=== PATIENT | male | born 1950 | race Caucasian/White ===

== ENCOUNTER → 2016-10-06 | Outpatient (CLI) | payer MEDICARE ==
[2016-10-06 10:31] LABS: Non-African American GFR(MDRD) >60 (>60 ml/min/1.73 sqM)
[2016-10-06 10:33] LABS: Blood Urea Nitrogen 16 mg/dL (9-20)
--- NOTE | 2016-10-06 11:58 | CT ---
EXAMINATION TYPE: CT angio abd aorta wo/w con DATE OF EXAM: 10/06/2016 11:17 AM COMPARISON: 05/01/2016 HISTORY: 66-year-old male AAA follow up post stent. TECHNIQUE: Contiguous axial scanning of the abdomen and pelvis performed without and with IV Contrast , patient injected with 100 ml mL of Omnipaque 350. Delayed images were also obtained. Coronal/sagitt al MIP reconstructions performed. 3-D reconstructions generated on a dedicated independent workstatio n. CT DLP: 716.8 mGycm Automated exposure control for dose reduction was used. FINDINGS: The heart is normal size without pericardial effusion. Some emphysematous changes in the lower lungs. Small hiatal hernia. Tortuous descending thoracic aorta. The distal descending thoracic aorta measures 2.7 cm, ectatic. The upper abdominal aorta at the level of the celiac axis measures 2.7 cm, ectatic, essentially stabl e. There is an aortobiiliac endovascular stent graft which begins just above the level of the renal uyen ry takeoff, just below the SMA takeoff. The graft remains patent. The 10 cm long segment of infrarena l abdominal aortic aneurysm is redemonstrated and measures up to 5.8 cm wide on coronal series and up to 5.7 cm AP on sagittal series. This is in comparison to 5.9 x 5.6 cm on 05/01/2016, prestenting, al so measured on coronal and sagittal series, respectively. No endoleak is identified on arterial phase of imaging. The stented common iliac arteries measure up to 1.9 cm on the right and 1.6 cm on the left and are pa tent. There is redemonstrated fusiform dilatation of the celiac axis just prior to the trifurcation at 1.6 x 1.0 cm, not significantly changed from prior. Left hepatic lobe hypodense lesion measuring 1 cm is stable. Cholecystectomy clips are present. Bilateral left greater than right adrenal gland fullness as seen previously with density of less than 10 Hounsfield units could represent adrenal hyperplasia. Small periumbilical hernia. No dilated small bowel, free fluid, or free air. Small anterior splenule. Pancreas appears within normal limits. Redemonstrated 6 mm nonobstructive calculus lower pole left [place]. There is left colonic diverticulosis without pericolonic inflammatory change. Bladder is urine distended. No abnormal fluid collection in the pelvis or pelvic lymphadenopathy. Pro state gland mildly enlarged at 4.9 cm wide. Bones: Mild degenerative changes of the hips and mild at the SI joints as well. There is degenerated dextroconvex scoliosis of the lumbar spine. No osseous destructive process seen. IMPRESSION: 1. INTERVAL AORTOBIILIAC ENDOVASCULAR STENT GRAFT REPAIR OF THE PATIENT'S 10 CM LONG INFRARENAL AAA W ITH STENT EXTENDING FROM JUST ABOVE THE RENAL ARTERY TAKEOFF. 2. THE [place] SAC MEASURES 5.8 X 5.7 CM VERSUS 5.9 X 5.6 CM PRIOR TO STENTING, NOT SIGNIFICANTLY NIETO GED. NO CT EVIDENCE FOR ENDOLEAK. 3. MILDLY ANEURYSMAL RIGHT GREATER THAN LEFT STENTED COMMON ILIAC ARTERIES AT 1.9 AND 1.6 CM, RESPECT IVELY. 4. 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 5. LEFT HEMICOLONIC DIVERTICULOSIS AND 6 MM NONOBSTRUCTIVE LEFT RENAL CALCULUS. POSSIBLE ADRENAL HYPE RPLASIA.
== END | disposition home or self-care (01) ==
LOC: RADCTMAIN 09:51
PROVIDERS: ATTEND Thoracic Surgery (Cardiothoracic Vascular Surgery)
DX: I72.3 Aneurysm of iliac artery (principal); I72.2 Aneurysm of renal artery; I72.8 Aneurysm of other specified arteries; K57.30 Diverticulosis of large intestine without perforation or abscess without bleeding; Z95.828 Presence of other vascular implants and grafts
CPT/HCPCS: 82565; 84520; 75635; 36415; Q9967

== ENCOUNTER → 2017-05-12 | Outpatient (CLI) | payer MEDICARE ==
[2017-05-12 13:56] LABS: Blood Urea Nitrogen 14 mg/dL (9-20); Non-African American GFR(MDRD) >60 (>60 ml/min/1.73 sqM)
--- NOTE | 2017-05-12 15:31 | CT ---
EXAMINATION TYPE: CT angio abd aorta wo/w con DATE OF EXAM: 05/12/2017 COMPARISON: 10/06/2016 and 05/01/2016 HISTORY: 66-year-old male follow up to AAA TECHNIQUE: Contiguous axial scanning of the abdomen and pelvis performed without and with IV Contrast , patient injected with 100 mL of Omnipaque 350. Coronal/sagittal MIP reconstructions performed. 3-D reconstructions generated on a dedicated independent workstation. CT DLP: 2361 mGycm Automated exposure control for dose reduction was used. FINDINGS: The heart is normal size with trace anterior pericardial fluid. Lung bases clear without pleural effu siva. Small hiatal hernia. 1 cm hypodense left hepatic lobe lesion suggestive of a cyst. Cholecystectomy clips are present. No b iliary ductal dilatation. Portal venous system is patent. Low-density thickening of the bilateral adrenal glands, left greater than right unchanged from prior. Right kidney within normal limits. 6 mm nonobstructive calculus is again seen in the lower pole of t he left kidney. Spleen with anterior splenule within normal limits. Pancreas shows no gross abnormali ty. No dilated small bowel, free fluid, or free air. No mesenteric or retroperitoneal lymphadenopathy see n. Mild scattered stool. Left colonic diverticulosis without pericolonic inflammatory change. Bladder is urine distended with a couple bladder diverticulum measuring up to 2.0 cm on either side. Prostate gland mildly enlarged at 4.5 cm wide. No abnormal fluid collection in the pelvis or pelvic l ymphadenopathy. - Redemonstrated fusiform aneurysm of the celiac axis prior to the trifurcation measuring 1.6 x 1.0 c m. - Upper abdominal aorta remains ectatic at 2.7 cm. - SMA origin is patent. - Redemonstrated aortobiiliac endovascular stent graft with stent extending from just above the renal artery takeoff. - The graft remains patent and the [place] sac measures 5.1 x 4.3 cm versus 5.9 x 5.6 cm on 09/28/2016. - No evidence for endoleak on the arterial phase or delayed images. - The stented right and left common iliac arteries remain ectatic at 1.9 and 1.6 cm. Bones: Mild degenerative changes at the hips. Degenerated dextroconvex curvature of the lumbar spine. IMPRESSION: 1. AORTOBIILIAC STENT GRAFT REDEMONSTRATED. THE [place] SAC HAS DECREASED IN SIZE NOW MEASURING 5.1 X 4.3 CM VERSUS 5.9 X 5.6 CM ON 09/28/2016. NO EVIDENCE FOR ENDOLEAK. 2. THE STENTED RIGHT AND LEFT COMMON ILIAC ARTERIES REMAIN ECTATIC AT 1.9 AND 1.6 CM, RESPECTIVELY. 3. REDEMONSTRATED FUSIFORM ANEURYSM OF THE CELIAC AXIS PRIOR TO THE TRIFURCATION AT 1.6 X 1.0 CM. 4. LEFT HEMICOLONIC DIVERTICULOSIS, 6 MM NONOBSTRUCTIVE LEFT RENAL CALCULUS, AND SUSPECTED ADRENAL HY PERPLASIA.
== END | disposition home or self-care (01) ==
LOC: RADCTMAIN 13:00
PROVIDERS: ATTEND Thoracic Surgery (Cardiothoracic Vascular Surgery)
DX: K57.30 Diverticulosis of large intestine without perforation or abscess without bleeding (principal); N20.0 Calculus of kidney; I71.4 Abdominal aortic aneurysm, without rupture; I77.89 Other specified disorders of arteries and arterioles; Z95.828 Presence of other vascular implants and grafts
CPT/HCPCS: 82565; 84520; 75635; 36415; Q9967

== ENCOUNTER 2018-07-03 09:42 | Emergency (ER) | payer MEDICARE ==
[2018-07-03 09:49] VITALS: TEMP 98.1
[2018-07-03] MEDS ORDERED: HYDROcodone/APAP 5-325MG 1 EACH TAB PO STA (10:21)
--- NOTE | 2018-07-03 10:32 | ED ---
General Adult HPI - General Chief complaint: Extremity Problem,Nontraumatic Stated complaint: rt shoulder pain Source: patient, RN notes reviewed, old records reviewed Mode of arrival: ambulatory Limitations: no limitations - History of Present Illness Initial comments: 67-year-old male patient with past medical history of hypertension presents in ED with 3 days of right shoulder pain and 4 days of cervical spinal pain. Patient has a long history of right shoulder pain, had a total replacement of his right shoulder and [address] Mann. Patient additionally has a long history of cervical and lumbar spinal pain, follows up with Dr. Stringer and is scheduled to see him on . Patient denies any recent falls, trauma, injury. Patient states that his cervical spine bothersome approximately 3-4 times per year, is well-controlled with ibuprofen. Patient's primary complaint is his 3 days of right shoulder pain. Patient had a total replacement 2005, is concerned that it could be derangement of the prosthetic. Patient denies any falls, recent trauma, heavy lifting. Patient does not have any other complaints. Patient denies chest pain, shortness of breath, heart palpitations , fever or chills, abdominal pain, nausea vomiting diarrhea. Pt denies new numbness, paresthesias in any extremities. Systemic: Pt denies fatigue, myalgia, fever/chills, rash. Pt denies weakness, night sweats, weight loss. Neuro: Pt denies headache, visual disturbances, syncope or pre-syncope. HEENT: Pt denies ocular discharge or irritation, otalgia, rhinorrhea, pharyngitis or notable lymphadenopathy. Cardiopulmonary: Pt denies chest pain, SOB, heart palpitations, dyspnea on exertion. Abdominal/GI: Pt denies abdominal pain, n/v/d. : Pt denies dysuria, burning w/ urination, frequency/urgency. Denies new onset urinary or bowel incontinence. MSK: Pt denies myalgia, loss of strength or function in extremities. - Related Data Home Medications Medication Instructions Recorded Confirmed Lisinopril 10 mg PO HS 03/24/15 07/03/18 Albuterol Inhaler [Ventolin Hfa 2 puff INHALATION RT-Q6H PRN 07/03/18 07/03/18 Inhaler] Aspirin EC [Ecotrin Low Dose] 81 mg PO HS 07/03/18 07/03/18 Glucosamine/Chondr [place] A Sod [Osteo 1 tab PO HS 07/03/18 07/03/18 Bi-Flex Caplet] Ibuprofen [Motrin Ib] 800 mg PO TID PRN 07/03/18 07/03/18 Multivit-Min/FA/Lycopen/Lutein 1 tab PO HS 07/03/18 07/03/18 [Centrum Silver Tablet] [place]-3 Fatty Acids/Fish Oil [Fish 1 cap PO HS 07/03/18 07/03/18 Oil 1,000 mg Softgel] Ubidecarenone [Co Q-10] 100 mg PO HS 07/03/18 07/03/18 Allergies Allergy/AdvReac Type Severity Reaction Status Date / Time Penicillins AdvReac Rapid Verified 07/03/18 10:13 Heart Rate Review of Systems ROS Statement: Those systems with pertinent positive or pertinent negative responses have been documented in the HPI. ROS Other: All systems not noted in ROS Statement are negative. Past Medical History Past Medical History: Hyperlipidemia, Hypertension Additional Past Medical History / Comment(s): gastric ulcers History of Any Multi-Drug Resistant Organisms: None Reported Past Surgical History: Cholecystectomy, Hernia Repair, Joint Replacement Past Psychological History: No Psychological Hx Reported Smoking Status: Current every day smoker Past Alcohol Use History: None Reported Past Drug Use History: None Reported General Exam - General Exam Comments Initial Comments: Constitutional: NAD, AOX3, Pt has pleasant affect. HEENT: NC/AT, trachea midline, neck supple, no lymphadenopathy. Posterior pharynx non erythematous, without exudates. External ears appear normal, without discharge. Mucous membranes moist. Eyes PERRLA, EOM intact. There is no scleral icterus. No pallor noted. Cardiopulmonary: RRR, no murmurs, rubs or gallops, no JVD noted. Lungs CTAB in anterior and posterior robert. No peripheral edema. Abdominal exam: Abdomen soft and non-distended. Abdomen non-tender to palpation in all 4 quadrants. Bowel sounds active in LLQ. No hepatosplenomegaly. Neuro: CN II-XII intact. MSK: Cervical spine nontender to palpation, no nuchal rigidity, full active range of motion. Right shoulder nontender to palpation, no erythema, drainage, painful arc in right side positive. Empty can test on right side positive. Radial pulse 2 bilaterally. Capillary refill less than 2 seconds bilaterally. Sensation intact bilaterally of upper extremities. Patient ambulatory, he'll toe walking intact. Psoas strength 5 out of 5, quadriceps strength 5 out of 5. Full active range of motion in all extremities. Limitations: no limitations Course Vital Signs 07/03/18 07/03/18 09:46 11:43 Temperature 98.1 F Pulse Rate 92 83 Respiratory 16 18 Rate Blood Pressure 190/76 149/101 O2 Sat by Pulse 98 96 Oximetry Medical Decision Making - Medical Decision Making 67-year-old male patient presents in ED with right shoulder pain. She has a history of total right shoulder [place] [address] Mann. Patient has a separate complaint of cervical neck pain. Patient has a long history of cervical neck pain, had MRI approximately one year ago, follows up with Dr. Stringer for neck and low back pain. Patient states that he is primarily presenting for symptom control, and to assure that his prosthetic is not damaged. EKG patient was not suspicious for acute ischemia. Physical exam revealed neurovascularly intact upper extremity. Normal biceps, triceps strength. Right shoulder is nontender to palpation, nonerythematous, not warm. Cervical spine was nontender to palpation. Full active range of motion of cervical spine. Patient had a normal neuro exam. Patient is ambulatory. Patient does not have any new weakness or paresthesias in extremities. Plain films are taken of patient's cervical spine and shoulder. The plain film of patient's cervical spine displayed no evidence of acute fracture, grade 1 anterolisthesis at C3 and C4. Severe degenerative disc space narrowing gratis at C5-C6 and C6-C7. Findings explained patient in depth. Shoulder film displayed a intact right shoulder prosthesis. No acute fracture dislocation. Findings were explained to patient in depth. Patient was mildly hypertensive upon presentation to the ED secondary to pain. Patient vital signs stable after by mouth analgesic administration. Patient to discharge and follow-up with Dr. Mann and Dr. Stringer in 1-2 days. Pt to f/u with PCP in 1-2 days. Patient prescribed Tylenol 3 starter pack for at home analgesic control until follow-up. Patient to return to ED if any new signs or symptoms develop including chest pain, shortness of breath, weakness in right arm, weakness in any other extremities, change in color right arm, swelling, or other new symptoms. Case discussed with Dr. Song. Pt is driving home. - EKG Data -: EKG Interpreted by Me EKG Comments: Ventricular rate 86, MA interval 170, QRS 68, QTC/QTC 336/42, normal sinus rhythm, no concerns for acute ischemia. Disposition Clinical Impression: Shoulder pain, right Disposition: HOME SELF-CARE Condition: Good Instructions: Shoulder Pain (ED) Additional Instructions: Patient to adhere to previously discussed treatment plan and will take medication(s) as directed. Patient to follow up with PCP in 1-2 days. Patient to return to ED if symptoms do not improve. Is patient prescribed a controlled substance at d/c from ED?: No Referrals: Jennifer Mendoza DO [Primary Care Provider] - 1-2 days Armani Mann MD [REFERRING] - 1-2 days Arjun Stringer MD [STAFF PHYSICIAN] - 1-2 days Time of Disposition: 12:16
--- NOTE | 2018-07-03 11:33 | XR ---
EXAMINATION TYPE: XR shoulder complete RT DATE OF EXAM: 07/03/2018 CLINICAL HISTORY: pain TECHNIQUE: Three views of the right shoulder are obtained. COMPARISON: None FINDINGS: There is no acute fracture/dislocation evident. Right shoulder prosthesis is intact. Subch ondral cyst formation glenoid. The visualized ribs are intact and unremarkable. IMPRESSION: 1. There is no acute fracture or dislocation. ICD 10 NO FRACTURE, INITIAL EVALUATION
--- NOTE | 2018-07-03 11:35 | XR ---
EXAMINATION TYPE: XR cervical spine comp DATE OF EXAM: 07/03/2018 CLINICAL HISTORY: pain COMPARISON: NONE TECHNIQUE: Frontal, lateral, oblique, swimmers, and open mouth view of the cervical spine are obtaine d. FINDINGS: No evidence for acute fracture. Grade 1 anterolisthesis C3 on C4 measuring 4 mm. Severe deg enerative disc space narrowing greatest at C5-6 and C6-7. Ventral and dorsal spondylosis with bilater al foraminal encroachment. IMPRESSION: No acute fracture or dislocation is seen in the cervical spine.ICD 10 NO FRACTURE, INITI AL EVALUATION
[2018-07-03 11:46] VITALS: BP 149/101; PULSE 83; RESP 18
[2018-07-03] MEDS ORDERED: ACET/COD 300 MG/30 MG STARTER PACK 6 TAB BTL PO STA (12:16)
== END 2018-07-03 13:01 | disposition home or self-care (01) ==
LOC: EC 09:42
DX: M43.12 Spondylolisthesis, cervical region (principal); M48.02 Spinal stenosis, cervical region; E78.5 Hyperlipidemia, unspecified; I10 Essential (primary) hypertension; F17.200 Nicotine dependence, unspecified, uncomplicated; Z79.82 Long term (current) use of aspirin; Z79.899 Other long term (current) drug therapy; Z88.0 Allergy status to penicillin; Z96.611 Presence of right artificial shoulder joint
CPT/HCPCS: 72050; 93005; 99284

== ENCOUNTER → 2018-07-21 | Outpatient (CLI) | payer MEDICARE ==
--- NOTE | 2018-07-21 12:06 | MR ---
EXAMINATION TYPE: MR lumbar spine wo con DATE OF EXAM: 07/21/2018 COMPARISON: CT May 12, 2017 HISTORY: Spondylosis without myelopathy, pain TECHNIQUE: Multiplanar, multisequence imaging of the lumbar spine is performed without IV contrast. FINDINGS: There is dextroconvex scoliosis redemonstrated. There is loss of normal lumbar lordosis on sagittal images. There is grade 1 retrolisthesis of L2 on L3. Sagittal images of the lumbar spine brandt w vertebral body heights to appear satisfactory. There is multilevel disc desiccation and fairly adva nced disc space narrowing with relative sparing of L5-S1 level. Multilevel posterior spur disc comple xes are effacing anterior thecal sac. The conus medullaris is somewhat high in position ending super ior T12 level. There is heterogeneous endplate changes with moderate anterior spurring most prominent left L3-L4 and L4-L5 levels. Axial images at the T12-L1 level shows mild broad disc bulge with right paracentral/foraminal disc pr otrusion component effacing anterolateral thecal sac on axial image 28. Bilateral neural foramina are patent. Axial images at the L1-L2 level show mild facet degenerative changes bilaterally. There is broad-base d right lateral disc protrusion. There is moderate to severe right-sided inferior neural foraminal na rrowing. Left-sided neural foramen is patent. There is effacement of the anterior thecal sac. Axial images at the L2-L3 level show moderate facet degenerative changes and ligament flavum hypertro phy, left greater than right with spondylolisthesis and broad-based posterior spur disc complex. Ther e is effacement of the anterior thecal sac. There is advanced left-sided neural foraminal narrowing s agittal image 6 and axial image 18. There is moderate right-sided inferior neural foraminal narrowing . Encroachment left L2 nerve is felt present. Axial images at the L3-L4 level show mild/moderate facet degenerative changes and ligament flavum hyp ertrophy. There is moderate broad disc bulge with central disc protrusion component effacing anterior thecal sac. There is mild to moderate left greater than right bilateral neural foraminal narrowing. Axial images at the L4-L5 level show moderate facet degenerative changes and ligamentum flavum hypert rophy. There is moderate broad disc bulge with right paracentral disc protrusion component. There is effacement of the anterior thecal sac. There is severe right and moderate left-sided neural foraminal narrowing. Encroachment on right L4 nerve is suspected sagittal image 15 and axial image 7. Axial images at L5-S1 level show mild/moderate facet degenerative changes bilaterally. There is centr al disc protrusion minimally effacing anterior thecal sac on axial image 3. Bilateral neural foramina are patent. There is aneurysmal change to the infrarenal [place] abdominal aorta with metallic aortobiiliac stent graft seen better on recent CT noted. IMPRESSION: Dextroconvex scoliosis and loss of normal lumbar lordosis with multilevel degenerative ch anges in lumbar spine as detailed above.
== END | disposition home or self-care (01) ==
LOC: RADMRIMAIN 10:10
PROVIDERS: ATTEND Physical Medicine & Rehabilitation
DX: M41.86 Other forms of scoliosis, lumbar region (principal); M47.817 Spondylosis without myelopathy or radiculopathy, lumbosacral region; I10 Essential (primary) hypertension; K21.9 Gastro-esophageal reflux disease without esophagitis; F17.210 Nicotine dependence, cigarettes, uncomplicated; Z86.79 Personal history of other diseases of the circulatory system
CPT/HCPCS: 72148

== ENCOUNTER 2018-10-03 09:42 | Day surgery (SDC) | payer MEDICARE ==
[2018-09-29 12:17] VITALS: BMI 23.6
[~2018-10-03 09:42] MED LIST: LACTATED RINGERS 1,000 ML IV SCH; LIDOCAINE 1% 20 ML VIAL (10MG/ML) FOR IV START INTRADERMA PRN
[2018-10-03 10:05] VITALS: RESP 16; TEMP 97
[2018-10-03] MEDS ORDERED: PROPOFOL 10 MG/ML 20 ML VIAL IV ONE (10:47)
[2018-10-03 11:50] VITALS: BP 126/84; PULSE 82
--- NOTE | 2018-10-03 13:20 | P.PCN ---
Date of Procedure: 10/03/18 Procedure(s) Performed: Procedure: Colonoscopy and polypectomy and biopsy. Preoperative diagnosis: Rectal bleeding and history of polyps. Postoperative diagnosis: 1. Two polyps snared but no large polyps or cancer. 2. Diverticulosis with no evidence of diverticulitis or strictures. 3. Segmental colitis involving a segment in the rectum and in the sigmoid but no spontaneous bleeding. 4. Biopsies obtained from the sigmoid and rectum. Preparation: HalfLytely prep. Sedation: Was provided by anesthesia. Brief clinical history: The patient is a 68-year-old male who is scheduled for this evaluation because of history of polyps and rectal bleeding. The patient had bleeding for 10 days prior to his office visit around 2 weeks ago. He thinks that the bleeding may have improved since but still sees blood on the toilet tissue. No diarrhea or extraintestinal manifestations of inflammatory bowel disease. Procedure: With the patient on his left lateral decubitus position and after informed consent and adequate sedation, the perianal area was inspected and it did not show any fissures or fistulas. There were no masses felt on digital rectal examination. The Olympus CFH 190L video colonoscope was then inserted in the rectum in the usual fashion and advanced to the cecum. There there were multiple diverticular orifices noted mostly on the left side with occasional orifice around the hepatic flexure and on the right side, but I did not see any evidence of diverticulitis. There was 2 segments of colitis: one just inside the rectum and one in the distal sigmoid in the vicinity of diverticular orifices with findings of edema, erythema and friability but no spontaneous bleeding. There were no ulcers. There were multiple diverticular orifices noted mostly on the left side with few on the right side and around the hepatic flexure. 2 polyps were noted around the splenic flexure and in the sigmoid which were snared and retrieved by suction but there were no large polyps or cancer. I retroflexed the endoscope in the rectum before the endoscope was withdrawn. There was no spontaneous bleeding noted on this examination. I obtained biopsies from the rectum and from the sigmoid. The patient tolerated the procedure well. Plan: The patient was reassured. Will await biopsy results and make further recommendations. I will suggest repeat colonoscopy in 5 years. For his bleeding management, I will make recommendations based on his course and biopsy results. I will keep you updated on his progress.
== END 2018-10-03 12:31 | disposition home or self-care (01) ==
LOC: ORWHC2ENDO 09:42
DX: K62.5 Hemorrhage of anus and rectum (principal); K50.10 Crohn's disease of large intestine without complications; D12.5 Benign neoplasm of sigmoid colon; K63.5 Polyp of colon; K57.30 Diverticulosis of large intestine without perforation or abscess without bleeding; Z86.010 Personal history of colon polyps; Z80.0 Family history of malignant neoplasm of digestive organs; J45.909 Unspecified asthma, uncomplicated; K21.9 Gastro-esophageal reflux disease without esophagitis; E78.5 Hyperlipidemia, unspecified; I10 Essential (primary) hypertension; Z87.19 Personal history of other diseases of the digestive system; Z79.1 Long term (current) use of non-steroidal anti-inflammatories (NSAID); Z79.82 Long term (current) use of aspirin; Z79.899 Other long term (current) drug therapy; Z88.0 Allergy status to penicillin
CPT/HCPCS: 88305; 45385; J2704

== ENCOUNTER → 2019-08-11 | Outpatient (CLI) | payer MEDICARE ==
[2019-08-11 20:58] LABS: HCT 45.1 % (39.0-53.0); MCH 32.6 pg (25.0-35.0); MCHC 33.3 g/dL (31.0-37.0); Mean Platelet Volume 9.1; Platelet Count 270 k/uL (150-450); RDW 12.6 % (11.5-15.5); WBC 7.8 k/uL (3.8-10.6)
== END | disposition home or self-care (01) ==
LOC: LABPAT 13:55
PROVIDERS: ATTEND Surgery
DX: Z01.818 Encounter for other preprocedural examination (principal)
CPT/HCPCS: 36415; 85027

== ENCOUNTER 2021-08-21 18:09 | Inpatient (IN) | payer MEDICARE ==
[2021-08-21] MEDS ORDERED: SODIUM CHLORIDE 0.9% 1,000 ML IV STA ×2 (18:10→19:15)
[2021-08-21] MEDS ORDERED: SODIUM CHLORIDE 0.9% 500 ML 500 ML IV STA (18:10)
[2021-08-21] MEDS ORDERED: LORazepam 2 MG/ML INJ IV STA (18:11)
[2021-08-21 18:40] LABS: Basophils # (A) 0.1 k/uL (0-0.2); Basophils % (A) 0 %; Eosinophils # (A) 0.4 k/uL (0-0.7); Eosinophils % (A) 3 %; HCT 45.2 % (39.0-53.0); HGB 14.5 gm/dL (13.0-17.5); Lymphocytes # (A) 1.6 k/uL (1.0-4.8); Lymphocytes % (A) 12 %; MCH 32.1 pg (25.0-35.0); MCHC 32.1 g/dL (31.0-37.0); MCV 100.2 fL (80.0-100.0); Mean Platelet Volume 8.4; Monocytes # (A) 0.5 k/uL (0-1.0); Monocytes % (A) 4 %; Neutrophils # (A) 11.2 k/uL (1.3-7.7); Neutrophils % (A) 80 %; Platelet Count 407 k/uL (150-450); RBC 4.52 m/uL (4.30-5.90); RDW 12.5 % (11.5-15.5)
[2021-08-21 19:20] LABS: INR 0.9 (<1.2); Partial Thromboplastin Time 22.1 sec (22.0-30.0)
--- NOTE | 2021-08-21 19:21 | ED ---
Chest Pain HPI - General Source: patient, RN notes reviewed Mode of arrival: ambulatory Limitations: no limitations - History of Present Illness MD Complaint: chest pain, other <Vito Olivas - Last Filed: 08/21/21 21:06> <Shane Mortensen - Last Filed: 08/24/21 17:28> - General Chief Complaint: Chest Pain Stated Complaint: SOB Time Seen by Provider: 08/21/21 18:10 - History of Present Illness Initial Comments: 71-year-old male with a history of asthma also history of hypertension GERD among other medical problems who prior to arrival was at home started developing right-sided chest pain shortness of breath. She was brought in by EMS for evaluation and very anxious he points to the right side of his chest to the area where the pain is. Moderate to severe and described as crampy at this time. No recent trauma no fevers chills sweats no cough or other symptoms reported at this time (Vito Olivas) - Related Data Home Medications Medication Instructions Recorded Confirmed Glucosamine/Chondr Buckner A Sod [Osteo 1 tab PO W/SUPPER 07/03/18 08/21/21 Bi-Flex Caplet] [place]-3 Fatty Acids/Fish Oil [Fish 1 cap PO W/SUPPER 07/03/18 08/21/21 Oil 1,000 mg Softgel] Escitalopram [Lexapro] 5 mg PO HS 08/11/19 08/21/21 Vit C/E/Zn/Coppr/Lutein/Zeaxan 2 tab PO W/SUPPER 08/11/19 08/21/21 [Preservision Areds 2 Softgel] lisinopriL 30 mg PO HS 08/11/19 08/21/21 Albuterol Inhaler [Ventolin Hfa 2 puff INHALATION RT-QID PRN 08/21/21 08/21/21 Inhaler] Cholecalciferol [Vitamin D3 (25 50 mcg PO W/SUPPER 08/21/21 08/21/21 Mcg = 1000 Iu)] Hydrocortisone Cream 1 applic TOPICAL BID PRN 08/21/21 08/21/21 [Hydrocortisone 2.5% Cream] Multivit-Min/FA/Lycopen/Lutein 1 tab PO W/SUPPER 08/21/21 08/21/21 [Centrum Silver Men Tablet] Nystatin 100,000 Unit/gm Oint 1 applic TOPICAL BID PRN 08/21/21 08/21/21 [Mycostatin Oint] Nystatin 100,000 Unit/gm Powd 1 applic TOPICAL BID PRN 08/21/21 08/21/21 [Mycostatin Powder] Vitamin E 400 unit PO W/SUPPER 08/21/21 08/21/21 Allergies Allergy/AdvReac Type Severity Reaction Status Date / Time Penicillins AdvReac Rapid Verified 08/21/21 19:00 Heart Rate Review of Systems ROS Other: All systems not noted in ROS Statement are negative. <Vito Olivas - Last Filed: 08/21/21 21:06> ROS Other: All systems not noted in ROS Statement are negative. <Shane Mortensen - Last Filed: 08/24/21 17:28> ROS Statement: Those systems with pertinent positive or pertinent negative responses have been documented in the HPI. EKG Findings - EKG Results: EKG: interpreted by ERMD, sinus rhythm (Sinus tachycardia rate 106. Interval 146 QRS rate 60 QT since QTC 300/[address] configuration marked amount of artifact noted. Hospital PVC noted) <Vito Olivas - Last Filed: 08/21/21 21:06> Past Medical History Past Medical History: Asthma, GERD/Reflux, Hypertension Additional Past Medical History / Comment(s): hx of gastric ulcers, abdominal aortic Aneurysm with stent (2016), scoliosis, blood clot right retina., umbilical hernia. History of Any Multi-Drug Resistant Organisms: None Reported Past Surgical History: Cholecystectomy, Hernia Repair, Joint Replacement Additional Past Surgical History / Comment(s): right total shoulder, left shoulder surgery., umbilical hernia., colonoscopies Past Anesthesia/Blood Transfusion Reactions: No Reported Reaction Past Psychological History: Anxiety Smoking Status: Current every day smoker Past Alcohol Use History: None Reported Past Drug Use History: None Reported - Past Family History Mother Family Medical History: No Reported History <Vito Olivas - Last Filed: 08/21/21 21:06> General Exam Limitations: no limitations General appearance: alert, anxious Head exam: Present: atraumatic, normocephalic, normal inspection Eye exam: Present: normal appearance, PERRL, EOMI. Absent: scleral icterus, conjunctival injection, periorbital swelling ENT exam: Present: mucous membranes dry Neck exam: Present: normal inspection, full ROM, other (No stridor JVD or bruits). Absent: tenderness, meningismus, lymphadenopathy Respiratory exam: Present: decreased breath sounds, other (Tachypnea noted). Absent: respiratory distress, wheezes, rales, rhonchi, stridor, chest wall tenderness Cardiovascular Exam: Present: normal rhythm, tachycardia, normal heart sounds. Absent: systolic murmur, diastolic murmur, rubs, gallop, clicks GI/Abdominal exam: Present: soft, normal bowel sounds. Absent: distended, tenderness, guarding, rebound, rigid Extremities exam: Present: normal inspection, full ROM, normal capillary refill. Absent: tenderness, pedal edema, joint swelling, calf tenderness Back exam: Present: normal inspection Neurological exam: Present: alert, oriented X3, CN II-XII intact Psychiatric exam: Present: normal affect, normal mood Skin exam: Present: warm, dry, intact, normal color. Absent: rash <Vito Olivas - Last Filed: 08/21/21 21:06> - General Exam Comments Initial Comments: This is a well up well-nourished awake alert oriented times 3 male (Vito Olivas) Course <Vito Olivas - Last Filed: 08/21/21 21:06> Vital Signs 08/21/21 08/21/21 18:17 20:00 Temperature 98 F Pulse Rate 103 H 97 Respiratory 26 H 27 H Rate Blood Pressure 187/104 126/80 O2 Sat by Pulse 94 L 97 Oximetry - Reevaluation(s) Reevaluation #1: 08/21/21 21:06 CAT scan results are pending patient's care will be endorsed to Dr. Mortensen at our shift change (Vito Olivas) Chest Pain MDM <Shane Mortensen - Last Filed: 08/24/21 17:28> - [facility] Patient is a 71-year-old man here mainly for right-sided pleuritic chest pain. The case is signed out to me pending the computed tomography scan for PE. The computed tomography scan does not reveal evident PE but does appear to show pneumonia. Case discussed with admitting physician and antibiotics and admission orders written. (Shane Mortensen) Disposition <Vito Olivas - Last Filed: 08/21/21 21:06> Is patient prescribed a controlled substance at d/c from ED?: No <Shane Mortensen - Last Filed: 08/24/21 17:28> Clinical Impression: Pneumonia, Pleuritic chest pain Disposition: ADMITTED IP TO THIS HOSP Condition: Fair
[2021-08-21 19:35] LABS: ALT 12 U/L (4-49); AST 20 U/L (17-59); African American GFR (CKD) >90 (>60 ml/min/1.73 sqM); Albumin 3.3 g/dL (3.5-5.0); Alkaline Phosphatase 83 U/L (38-126); Anion Gap 8 mmol/L; Blood Urea Nitrogen 22 mg/dL (9-20); Calcium 9.1 mg/dL (8.4-10.2); Carbon Dioxide 24 mmol/L (22-30); Chloride 106 mmol/L (98-107); Glucose 122 mg/dL (74-99); Magnesium 1.6 mg/dL (1.6-2.3); Non-African American GFR(CKD) >90 (>60 ml/min/1.73 sqM); Potassium 3.9 mmol/L (3.5-5.1); Sodium 138 mmol/L (137-145); Total Bilirubin 0.5 mg/dL (0.2-1.3); Total Protein 6.2 g/dL (6.3-8.2)
--- NOTE | 2021-08-21 19:47 | XR ---
EXAMINATION: XR chest 2V DATE AND TIME: 08/21/2021 6:41 PM CLINICAL INDICATION: PHH; difficulty breathing TECHNIQUE: Departmental protocol COMPARISON: None FINDINGS: There is an ill-defined consolidated opacity measuring 4 cm, projecting laterally at the right lung b ase on the frontal radiograph, associated with a surrounding mild interstitial pattern. The findings are suspicious for, and can correlate with, a clinical diagnosis of pneumonia. The cardiac silhouette is not enlarged. The thoracic aorta is tortuous. Remainder of the mediastinal silhouette is unremarkable. The skeletal structures and soft tissues are negative for acute findings. IMPRESSION: Right lung base abnormalities.
--- NOTE | 2021-08-21 21:27 | CT ---
EXAMINATION TYPE: CT angio chest DATE OF EXAM: 08/21/2021 8:41 PM COMPARISON: None HISTORY: PE suspected, elevated d-dimer, SOB, chest pain. Denies cardiac hx. CT DLP: 297.8 mGycm. No cardiomegaly. No pericardial effusion. No adenopathy. Automated exposure cont rol for dose reduction was used. CONTRAST: CTA scan of the thorax is performed with IV Contrast, patient injected with 100 mL of Isovu e 370, pulmonary embolism protocol. FINDINGS: LUNGS/PLEURAL SPACES: The airways are patent. There is moderate emphysematous change throughout the l ungs. There is a small right pleural effusion, with ill-defined added right lung base opacities in th e periphery, suspicious for atypical pneumonia if clinically supported. MEDIASTINUM: There is satisfactory enhancement of the pulmonary artery and its branches, with no CT e vidence for pulmonary embolism. Motion and streak artifact limits visualization. The aorta shows athe rosclerotic changes tortuosity and luminal irregularities with intimal calcifications, but no acute a ortic findings. There are prominent coronary calcifications. No cardiomegaly or pericardial effusion. No adenopathy. OTHER: Stomach is prominent in size and fluid-filled, nonspecific finding. IMPRESSION: 1. NEGATIVE FOR PULMONARY EMBOLISM. 2. SMALL RIGHT PLEURAL EFFUSION WITH 2 ILL-DEFINED RIGHT LUNG BASE PULMONARY INFILTRATES. 3. CORONARY CALCIFICATIONS, AND GENERALIZED ATHEROSCLEROTIC AORTIC CHANGES..
[2021-08-21] MEDS ORDERED: AZITHROMYCIN 500 MG TAB PO STA (21:40)
[2021-08-21] MEDS ORDERED: cefTRIAXone IN SWFI 1,000 MG/10 ML SYRINGE IVP STA (21:41)
[2021-08-21] MEDS ORDERED: ALBUTEROL HFA INHALER INHALATION PRN (22:06)
[2021-08-21] MEDS ORDERED: PNEUMONIA PROTOCOL UTILIZED 1 EACH MISC PO PRN (22:06)
[2021-08-22] MEDS: SODIUM CHLORIDE 0.9% 1,000 ML IV SCH ×2 (02:51→21:23)
[2021-08-22] MEDS: AZITHROMYCIN 500 MG TAB PO SCH (07:39)
[2021-08-22] MEDS: ENOXAPARIN 40 MG/0.4 ML SYRINGE SQ SCH (07:39)
[2021-08-22] MEDS ORDERED: methylPREDNISolone SOD SUCCI 125 MG/2 ML VIAL IV STA (10:58)
[2021-08-22] MEDS ORDERED: IPRATROPIUM-ALBUTEROL 3 ML NEB INHALATION STA (11:00)
[2021-08-22] MEDS ORDERED: IPRATROPIUM-ALBUTEROL 3 ML NEB INHALATION PRN (11:00)
--- NOTE | 2021-08-22 11:02 | P.CRDCN ---
History of Present Illness Consult date: 08/22/21 History of present illness: HISTORY OF PRESENT ILLNESS: This is a 71-year-old male with a past medical history for hypertension, AAA with stenting in 2016 at [place], and nicotine dependence. 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 We have been asked to see the patient in consultation for chest pain. Patient examined at the bedside. patient states he presented to the hospital with a chief complaint of shortness of breath. He states his shortness of breath started 3 or 4 days ago. He is currently being treated for pneumonia. The patient states he has been having chest pain for the past day or 2. He states the pain is on the right side of his chest. He states the pain is worse with deep inspiration. He states the pain is also worse with coughing and with movement. He denies any radiation of the pain. EKG reveals sinus tachycardia with PVCs. No signs of acute ischemia. Chest xray right lung base abnormalities. Findings are suspicious for pneumonia. Laboratory data: WBC 14.0. Hemoglobin 14.5. Platelet count 407. D-dimer 4.15. sodium 138. Potassium 3.9. BUN 22. Creatinine 0.65. Lactic acid 3.2. Repeat 0.8. Troponin negative 2. Current home cardiac medications include lisinopril 30 mg at night REVIEW OF SYSTEMS: At the time of my exam: CONSTITUTIONAL: Denies fever or chills. HEENT: Denies blurred vision, vision changes, or eye pain. Denies hemoptysis CARDIOVASCULAR: Denies chest pain. Denies orthopnea. Denies PND. Denies palpitations RESPIRATORY: Denies shortness of breath. GASTROINTESTINAL: Denies abdominal pain. Denies nausea or vomiting. HEMATOLOGIC: Denies bleeding disorders. GENITOURINARY: Denies any blood in urine. SKIN: Denies pruitis. Denies rash. PHYSICAL EXAM: VITAL SIGNS: Reviewed. GENERAL: Well-developed in no acute distress. HEENT: Head is normocephalic. Pupils are equal, round. Sclerae anicteric. Mucous membranes of the mouth are moist. Neck supple. No JVD or thyromegaly LUNGS: Respirations even and unlabored. Lungs with decreased air exchange and expiratory wheezing noted. HEART: Regular rate and rhythm. S1 and S2 heard. ABDOMEN: Soft. Nondistended. Nontender. EXTREMITIES: Normal range of motion. No clubbing or cyanosis. Peripheral pulses intact. No lower extremity edema NEUROLOGIC: Awake and alert. Oriented x 3. ASSESSMENT: Right-sided pneumonia Chest pain, atypical, troponin negative 3, pleuritic Hypertension History of AAA with stenting in 2016 at [place] PLAN: An acute coronary event has been ruled out Continue home cardiac medications Recommend pulmonary consult Obtain 2D echo to assess cardiac structure and function. If normal, no further cardiac workup recommended Nurse practitioner note has been reviewed by physician. Signing provider agrees with the documented findings, assessment, and plan of care. Past Medical History Past Medical History: Asthma, GERD/Reflux, Hypertension Additional Past Medical History / Comment(s): hx of gastric ulcers, abdominal aortic Aneurysm with stent (2016), scoliosis, blood clot right retina., umbilical hernia. History of Any Multi-Drug Resistant Organisms: None Reported Past Surgical History: Cholecystectomy, Hernia Repair, Joint Replacement Additional Past Surgical History / Comment(s): right total shoulder, left shoulder surgery., umbilical hernia., colonoscopies Past Anesthesia/Blood Transfusion Reactions: No Reported Reaction Past Psychological History: Anxiety Smoking Status: Current every day smoker Past Alcohol Use History: None Reported Additional Past Alcohol Use History / Comment(s): 1ppd , started smoking age 16. Past Drug Use History: None Reported - Past Family History Mother Family Medical History: No Reported History Medications and Allergies Home Medications Medication Instructions Recorded Confirmed Type Glucosamine/Chondr Buckner A Sod [Osteo 1 tab PO W/SUPPER 07/03/18 08/21/21 History Bi-Flex Caplet] [place]-3 Fatty Acids/Fish Oil [Fish 1 cap PO W/SUPPER 07/03/18 08/21/21 History Oil 1,000 mg Softgel] Escitalopram [Lexapro] 5 mg PO HS 08/11/19 08/21/21 History Vit C/E/Zn/Coppr/Lutein/Zeaxan 2 tab PO W/SUPPER 08/11/19 08/21/21 History [Preservision Areds 2 Softgel] lisinopriL 30 mg PO HS 08/11/19 08/21/21 History Albuterol Inhaler [Ventolin Hfa 2 puff INHALATION RT-QID PRN 08/21/21 08/21/21 History Inhaler] Cholecalciferol [Vitamin D3 (25 50 mcg PO W/SUPPER 08/21/21 08/21/21 History Mcg = 1000 Iu)] Hydrocortisone Cream 1 applic TOPICAL BID PRN 08/21/21 08/21/21 History [Hydrocortisone 2.5% Cream] Multivit-Min/FA/Lycopen/Lutein 1 tab PO W/SUPPER 08/21/21 08/21/21 History [Centrum Silver Men Tablet] Nystatin 100,000 Unit/gm Oint 1 applic TOPICAL BID PRN 08/21/21 08/21/21 History [Mycostatin Oint] Nystatin 100,000 Unit/gm Powd 1 applic TOPICAL BID PRN 08/21/21 08/21/21 History [Mycostatin Powder] Vitamin E 400 unit PO W/SUPPER 08/21/21 08/21/21 History Allergies Allergy/AdvReac Type Severity Reaction Status Date / Time Penicillins AdvReac Rapid Verified 08/21/21 19:00 Heart Rate Physical Exam Vitals: Vital Signs Temp Pulse Pulse Resp BP BP Pulse Ox 08/22/21 07:00 97.7 F 84 18 143/83 97 08/22/21 01:39 98.6 F 77 20 112/69 98 08/22/21 00:06 20 08/21/21 23:04 98.9 F 70 22 132/79 96 08/21/21 20:00 97 27 H 126/80 97 08/21/21 18:17 98 F 103 H 26 H 187/104 94 L Intake and Output 08/21/21 08/22/21 08/22/21 22:59 06:59 14:59 Intake Total 118 Balance 118 Intake: Oral 118 Other: # Voids 2 Weight 58.967 kg Results 08/21/21 18:30 08/21/21 19:23 Cardiac Enzymes 08/21/21 08/21/21 08/22/21 Range/Units 18:30 19:23 08:35 AST 20 (17-59) U/L Troponin I 0.016 <0.012 (0.000-0.034) ng/mL Coagulation 08/21/21 Range/Units 18:30 PT 10.0 (9.0-12.0) sec APTT 22.1 (22.0-30.0) sec CBC 08/21/21 Range/Units 18:30 WBC 14.0 H (3.8-10.6) k/uL RBC 4.52 (4.30-5.90) m/uL Hgb 14.5 (13.0-17.5) gm/dL Hct 45.2 (39.0-53.0) % Plt Count 407 (150-450) k/uL Comprehensive Metabolic Panel 08/21/21 Range/Units 19:23 Sodium 138 (137-145) mmol/L Potassium 3.9 (3.5-5.1) mmol/L Chloride 106 (98-107) mmol/L Carbon Dioxide 24 (22-30) mmol/L BUN 22 H (9-20) mg/dL Creatinine 0.65 L (0.66-1.25) mg/dL Glucose 122 H (74-99) mg/dL Calcium 9.1 (8.4-10.2) mg/dL AST 20 (17-59) U/L ALT 12 (4-49) U/L Alkaline Phosphatase 83 (38-126) U/L Total Protein 6.2 L (6.3-8.2) g/dL Albumin 3.3 L (3.5-5.0) g/dL Current Medications Generic Name Dose Route Start Last Admin Trade Name Freq PRN Reason Stop Dose Admin Albuterol Sulfate 2 puff 08/22/21 08:00 Albuterol Hfa Inhaler INHALATION RT-QID GERA Albuterol Sulfate 2 puff 08/21/21 22:06 Albuterol Hfa Inhaler INHALATION RT-Q4H PRN Shortness Of Breath Or Wheezing Azithromycin 500 mg 08/22/21 09:00 08/22/21 07:39 Azithromycin 500 Mg Tab PO 08/23/21 09:01 500 mg DAILY GERA Administration Enoxaparin Sodium 40 mg 08/22/21 09:00 08/22/21 07:39 Enoxaparin 40 Mg/0.4 Ml Syringe SQ 40 mg DAILY GERA Administration Escitalopram Oxalate 5 mg 08/22/21 21:00 Escitalopram 5 Mg Tab PO HS GERA Sodium Chloride 1,000 mls @ 20 mls/hr 08/21/21 22:15 08/22/21 02:51 Saline 0.9% IV 20 mls/hr .Q24H GERA Administration Ceftriaxone Sodium 2 gm/ 50 mls @ 100 mls/hr 08/22/21 23:00 Sodium Chloride IVPB 08/25/21 23:29 Q24H GERA Lisinopril 30 mg 08/22/21 21:00 Lisinopril 10 Mg Tab PO HS GERA Miscellaneous Information 1 each 08/21/21 22:06 Pneumonia Protocol Utilized 1 Each Misc PO ONCE PRN Per Protocol Intake and Output 08/21/21 08/22/21 08/22/21 22:59 06:59 14:59 Intake Total 118 Balance 118 Intake: Oral 118 Other: # Voids 2 Weight 58.967 kg 08/21/21 18:30 08/21/21 19:23
--- NOTE | 2021-08-22 11:34 | ECHOF ---
Referral Reason:lv function MEASUREMENTS -------- HEIGHT: 165.1 cm WEIGHT: 59.0 kg BP: 143/83 IVSd: 1.1 cm (0.6 - 1.1) LVIDd: 3.4 cm (3.9 - 5.3) LVPWd: 1.0 cm (0.6 - 1.1) IVSs: 1.4 cm LVIDs: 2.2 cm LVPWs: 1.2 cm Ao Diam: 3.3 cm (2.0 - 3.7) AV Cusp: 1.6 cm (1.5 - 2.6) LA Diam: 3.9 cm (2.7 - 3.8) MV E Harry: 0.82 m/s MV DecT: 217 ms MV A Harry: 0.99 m/s MV E/A Ratio: 0.83 RAP: 5.00 mmHg RVSP: 28.09 mmHg FINDINGS -------- Sinus rhythm. This was a technically adequate study. The left ventricular size is normal. Left ventricular wall thickness is normal. Overall left vent ricular systolic function is normal with, an EF between 55 - 60 %. The right ventricle is normal in size. The left atrial size is normal. The right atrial size is normal. Interatrial and interventricular septum intact. The aortic valve is trileaflet and appears structurally normal. There is mild aortic valve sclerosi s. There is no evidence of aortic regurgitation. There is no evidence of aortic stenosis. There is trace to mild mitral regurgitation. Mild tricuspid regurgitation present. There is no evidence of pulmonary hypertension. The right v entricular systolic pressure, as measured by Doppler, is 28.09mmHg. There is no pulmonic regurgitation present. The aortic root size is normal. Normal inferior vena cava with normal inspiratory collapse consistent with estimated right atrial pre ssure of 5 mmHg. There is no pericardial effusion. CONCLUSIONS -------- 1. The left ventricular size is normal. 2. Left ventricular wall thickness is normal. 3. Overall left ventricular systolic function is normal with, an EF between 55 - 60 %. 4. There is mild aortic valve sclerosis. 5. There is trace to mild mitral regurgitation. 6. Mild tricuspid regurgitation present. SALES MANAGEMENT INTERN: Zoë Alves RDCS
[2021-08-22] MEDS: PANTOPRAZOLE 40 MG/10 ML VIAL IVP SCH (11:42)
[2021-08-22 11:49] LABS: Glucose,Whole Blood 89 mg/dL (75-99)
[2021-08-22] MEDS: ALBUTEROL HFA INHALER INHALATION SCH ×3 (11:57→16:34)
[2021-08-22] MEDS: IPRATROPIUM-ALBUTEROL 3 ML NEB INHALATION SCH ×3 (11:58→20:11)
[2021-08-22] MEDS: INSULIN ASPART (NovoLOG) 100 UNIT/ML VIAL SQ SCH ×3 (12:07→21:22)
[2021-08-22] MEDS: NICOTINE 21MG/24HR PATCH TRANSDERM SCH (15:32)
[2021-08-22] MEDS: methylPREDNISolone SOD SUCCI 125 MG/2 ML VIAL IV SCH ×2 (15:32→23:14)
--- NOTE | 2021-08-22 15:45 | P.CNPUL ---
History of Present Illness Consult date: 08/22/21 Reason for consult: pneumonia History of present illness: 71-year-old male patient presented to the hospital because of chest pain. He was also to bring of shortness of breath a few days duration. The patient presented to the emergency department yesterday. The patient had developed a right-sided chest wall pain. Upon arrival to the ED, he was quite anxious and he was pointing out to the right side of the chest that was quite painful and the pain was quite extensive at that point. No trauma. No chills. No fever. The patient was seen in the emergency department and the patient was found to have no fever. Hemodynamically stable, pulse ox was 94% on room in oxygen. Chest x-ray was done and a chest x-ray showed a consolidation in the right lower lobe and following that the patient was given a CTA that showed no evidence of any pulmonary embolism. There was a small right-sided pleural effusion. There was ill-defined the right lung base pulmonary infiltrates suspicious for an underlying pneumonia. Further blood work showed a white cell count of 14 with a hemoglobin of 14.5. D-dimer was at 4.15 and a normal correlation profile was noted. BUN was 22 with a creatinine of 0.6. Electrodes were normal. Troponins were negative. Pro-calcitonin level was 0.03 and the COVID 19 testing was negative. The patient was started on accommodation Rocephin and Zithromax. The patient was also started on IV Solu Medrol. The patient was also seen by cardiology. He is known to have hypertension, and he also is an abdominal aor tic aneurysm receiving endovascular stent grafting back in 2016 at [facility]. He has also history of mild asthma, not receiving any maintenance treatment for now. Review of Systems CONSTITUTIONAL: Denies fever or chills. HEENT: Denies blurred vision, vision changes, or eye pain. Denies hemoptysis CARDIOVASCULAR: Denies chest pain. Denies orthopnea. Denies PND. Denies palpitations RESPIRATORY: shortness of breath and right-sided chest wall pain. GASTROINTESTINAL: Denies abdominal pain. Denies nausea or vomiting. HEMATOLOGIC: Denies bleeding disorders. GENITOURINARY: Denies any blood in urine. SKIN: Denies pruitis. Denies rash. Past Medical History Past Medical History: Asthma, GERD/Reflux, Hypertension Additional Past Medical History / Comment(s): hx of gastric ulcers, abdominal aortic Aneurysm with stent (2016), scoliosis, blood clot right retina., umbilical hernia. History of Any Multi-Drug Resistant Organisms: None Reported Past Surgical History: Cholecystectomy, Hernia Repair, Joint Replacement Additional Past Surgical History / Comment(s): right total shoulder, left shoulder surgery., umbilical hernia., colonoscopies Past Anesthesia/Blood Transfusion Reactions: No Reported Reaction Past Psychological History: Anxiety Smoking Status: Current every day smoker Past Alcohol Use History: None Reported Additional Past Alcohol Use History / Comment(s): 1ppd , started smoking age 16. Past Drug Use History: None Reported - Past Family History Mother Family Medical History: No Reported History Medications and Allergies Home Medications Medication Instructions Recorded Confirmed Type Glucosamine/Chondr Buckner A Sod [Osteo 1 tab PO W/SUPPER 07/03/18 08/21/21 History Bi-Flex Caplet] [place]-3 Fatty Acids/Fish Oil [Fish 1 cap PO W/SUPPER 07/03/18 08/21/21 History Oil 1,000 mg Softgel] Escitalopram [Lexapro] 5 mg PO HS 08/11/19 08/21/21 History Vit C/E/Zn/Coppr/Lutein/Zeaxan 2 tab PO W/SUPPER 08/11/19 08/21/21 History [Preservision Areds 2 Softgel] lisinopriL 30 mg PO HS 08/11/19 08/21/21 History Albuterol Inhaler [Ventolin Hfa 2 puff INHALATION RT-QID PRN 08/21/21 08/21/21 History Inhaler] Cholecalciferol [Vitamin D3 (25 50 mcg PO W/SUPPER 08/21/21 08/21/21 History Mcg = 1000 Iu)] Hydrocortisone Cream 1 applic TOPICAL BID PRN 08/21/21 08/21/21 History [Hydrocortisone 2.5% Cream] Multivit-Min/FA/Lycopen/Lutein 1 tab PO W/SUPPER 08/21/21 08/21/21 History [Centrum Silver Men Tablet] Nystatin 100,000 Unit/gm Oint 1 applic TOPICAL BID PRN 08/21/21 08/21/21 History [Mycostatin Oint] Nystatin 100,000 Unit/gm Powd 1 applic TOPICAL BID PRN 08/21/21 08/21/21 History [Mycostatin Powder] Vitamin E 400 unit PO W/SUPPER 08/21/21 08/21/21 History Allergies Allergy/AdvReac Type Severity Reaction Status Date / Time Penicillins AdvReac Rapid Verified 08/21/21 19:00 Heart Rate Physical Exam Vitals: Vital Signs Temp Pulse Pulse Resp BP BP Pulse Ox 08/22/21 13:49 98.7 F 101 H 17 110/63 95 08/22/21 12:10 80 08/22/21 12:00 76 08/22/21 07:00 97.7 F 84 18 143/83 97 08/22/21 01:39 98.6 F 77 20 112/69 98 08/22/21 00:06 20 08/21/21 23:04 98.9 F 70 22 132/79 96 08/21/21 20:00 97 27 H 126/80 97 08/21/21 18:17 98 F 103 H 26 H 187/104 94 L Intake and Output 08/22/21 08/22/21 08/22/21 06:59 14:59 22:59 Intake Total 236 Balance 236 Intake: Oral 236 Other: # Voids 2 3 GENERAL: Well-developed in no acute distress. currently on 2 L of Oxymizer nasal cannula Head exam was generally normal. There was no scleral icterus or corneal arcus. Mucous membranes were moist. HEENT: Head is normocephalic. Pupils are equal, round. Sclerae anicteric. Mucous membranes of the mouth are moist. Neck supple. No JVD or thyromegaly LUNGS: Respirations even and unlabored. Lungs with decreased air exchange and expiratory wheezing noted. HEART: Regular rate and rhythm. S1 and S2 heard. ABDOMEN: Soft. Nondistended. Nontender. EXTREMITIES: Normal range of motion. No clubbing or cyanosis. Peripheral pulses intact. No lower extremity edema Neurologically, the patient is awake and alert and the patient does not have any focal neurological deficit. Cranial nerves are essentially intact. Examination of the skin revealed no evidence of significant rashes, suspicious appearing nevi or other concerning lesions. Results - Laboratory Findings CBC and BMP: 08/21/21 18:30 08/21/21 19:23 PT/INR, D-dimer PT 10.0 sec (9.0-12.0) 08/21/21 18:30 INR 0.9 (<1.2) 08/21/21 18:30 D-Dimer 4.15 mg/L FEU (<0.60) H 08/21/21 18:30 Abnormal lab findings: Abnormal Labs 08/21/21 08/21/21 08/21/21 18:30 18:30 18:30 WBC 14.0 H MCV 100.2 H Neutrophils # 11.2 H D-Dimer 4.15 H BUN Creatinine Glucose Plasma Lactic Acid Jj 3.2 H* Total Protein Albumin 08/21/21 19:23 WBC MCV Neutrophils # D-Dimer BUN 22 H Creatinine 0.65 L Glucose 122 H Plasma Lactic Acid Jj Total Protein 6.2 L Albumin 3.3 L Assessment and Plan Plan: 1 right lower lobe pneumonia, likely bacterial, likely community-acquired an acute in nature and the patient developed a small right-sided parapneumonic effusion. Pro-calcitonin level has been negative. There is another patchy area of subpleural consolidation in the right lower lobe which could be potentially an area of pneumonia. Malignancy is felt to be less likely. Pulmonary embolism is also felt to be less likely at this point in time. 2 right-sided chest wall pain, limited pleurisy secondary to above 3 mild leukocytosis with a white cell count of 14 4 acute hypoxic respiratory failure currently on 2 L about 2 by nasal cannula 5 Abdominal aortic aneurysm post-endovascular stent grafting 6 hypertension 7 history of peptic ulcer disease 8 acid reflux 9 history of scoliosis of the spine. 10 COPD , maintained 11 smoker, 50 py 12 Completed COVID 19 vaccination times 3 Plan Continue Rocephin and Zithromax Sputum Gram stain and culture Blood cultures Continued IV Solu-Medrol Covid 19 testing is been negative Continue DuoNeb neb regimen is around the clock right-sided pleural effusion is small and is not amenable to thoracentesis yet. Repeat chest x-ray with next 24-48 hours We'll continue to follow. Cardiology is consultation is also appreciated.
[2021-08-22 17:06] LABS: Glucose,Whole Blood 134 mg/dL (75-99)
[2021-08-22 20:54] LABS: Glucose,Whole Blood 198 mg/dL (75-99)
[2021-08-22] MEDS: ESCITALOPRAM 5 MG TAB PO SCH (21:23)
[2021-08-22] MEDS: lisinopriL 10 MG TAB PO SCH (21:23)
--- NOTE | 2021-08-22 23:22 | P.HPIM ---
History of Present Illness H&P Date: 08/22/21 Chief Complaint: chest pain Evangelist Woodall is a 71 yo M with PMH of HTN, COPD, tobacco abuse who presented to the ED complaining of chest pain as well as increasing shortness of breath over the past few days. He complains that he has been having R sided chest pain and tightness which has been sharp and constant in nature. He denies palpitations, sweats, fever, chills. He has been experiencing cough as well. On presentation pt tachycardic, tachypneic, WBC 14k, d-dimer 4.15, procalcitonin negative, trop negative. CTA performed and showing R sided consolidation and pleural effusion. Review of Systems All systems: negative Constitutional: Reports malaise, Denies chills, Denies fever Eyes: denies blurred vision, denies pain Ears, nose, mouth and throat: Denies headache, Denies sore throat Cardiovascular: Reports chest pain, Denies shortness of breath Respiratory: Reports cough, Reports dyspnea Gastrointestinal: Denies abdominal pain, Denies diarrhea, Denies nausea, Denies vomiting Musculoskeletal: Denies myalgias Integumentary: Denies pruritus, Denies rash Neurological: Denies numbness, Denies weakness Psychiatric: Denies anxiety, Denies depression Endocrine: Denies fatigue, Denies weight change Past Medical History Past Medical History: Asthma, GERD/Reflux, Hypertension Additional Past Medical History / Comment(s): hx of gastric ulcers, abdominal aortic Aneurysm with stent (2016), scoliosis, blood clot right retina., umbilical hernia. History of Any Multi-Drug Resistant Organisms: None Reported Past Surgical History: Cholecystectomy, Hernia Repair, Joint Replacement Additional Past Surgical History / Comment(s): right total shoulder, left shoulder surgery., umbilical hernia., colonoscopies Past Anesthesia/Blood Transfusion Reactions: No Reported Reaction Past Psychological History: Anxiety Smoking Status: Current every day smoker Past Alcohol Use History: None Reported Additional Past Alcohol Use History / Comment(s): 1ppd , started smoking age 16. Past Drug Use History: None Reported - Past Family History Mother Family Medical History: No Reported History Medications and Allergies Home Medications Medication Instructions Recorded Confirmed Type Glucosamine/Chondr Buckner A Sod [Osteo 1 tab PO W/SUPPER 07/03/18 08/21/21 History Bi-Flex Caplet] [place]-3 Fatty Acids/Fish Oil [Fish 1 cap PO W/SUPPER 07/03/18 08/21/21 History Oil 1,000 mg Softgel] Escitalopram [Lexapro] 5 mg PO HS 08/11/19 08/21/21 History Vit C/E/Zn/Coppr/Lutein/Zeaxan 2 tab PO W/SUPPER 08/11/19 08/21/21 History [Preservision Areds 2 Softgel] lisinopriL 30 mg PO HS 08/11/19 08/21/21 History Albuterol Inhaler [Ventolin Hfa 2 puff INHALATION RT-QID PRN 08/21/21 08/21/21 History Inhaler] Cholecalciferol [Vitamin D3 (25 50 mcg PO W/SUPPER 08/21/21 08/21/21 History Mcg = 1000 Iu)] Hydrocortisone Cream 1 applic TOPICAL BID PRN 08/21/21 08/21/21 History [Hydrocortisone 2.5% Cream] Multivit-Min/FA/Lycopen/Lutein 1 tab PO W/SUPPER 08/21/21 08/21/21 History [Centrum Silver Men Tablet] Nystatin 100,000 Unit/gm Oint 1 applic TOPICAL BID PRN 08/21/21 08/21/21 History [Mycostatin Oint] Nystatin 100,000 Unit/gm Powd 1 applic TOPICAL BID PRN 08/21/21 08/21/21 History [Mycostatin Powder] Vitamin E 400 unit PO W/SUPPER 08/21/21 08/21/21 History Allergies Allergy/AdvReac Type Severity Reaction Status Date / Time Penicillins AdvReac Rapid Verified 08/21/21 19:00 Heart Rate Physical Exam Vitals: Vital Signs Temp Pulse Pulse Resp BP Pulse Ox 08/22/21 22:06 95 08/22/21 20:28 80 08/22/21 20:12 84 08/22/21 20:00 101 H 17 08/22/21 19:38 98.3 F 102 H 18 125/80 95 08/22/21 16:46 80 08/22/21 16:34 78 08/22/21 13:49 98.7 F 101 H 17 110/63 95 08/22/21 12:10 80 08/22/21 12:00 76 08/22/21 07:00 97.7 F 84 18 143/83 97 01/14/22 01:39 98.6 F 77 20 112/69 98 08/22/21 00:06 20 Intake and Output 08/22/21 08/22/21 08/23/21 14:59 22:59 06:59 Intake Total 236 118 Balance 236 118 Intake: Oral 236 118 Other: Voiding Method Toilet Urinal # Voids 3 1 General: well nourished, well developed, NAD. Vitals reviewed Eyes: PERRL, EOMI, conjunctiva normal HENT: normocephalic, mucus membranes moist Neck: supple, no JVD Lungs: normal respiratory effort. Wheezes and rales at base CV: Regular rate and rhythm, no murmur. Peripheral pulses 2+ Abdomen: soft, nondistended, no organomegaly Lymph: no cervical or axillary LAD Skin: warm and dry. Neuro: A&Ox3, normal mood and affect Results CBC & Chem 7: 08/21/21 18:30 08/21/21 19:23 Labs: Abnormal Lab Results - Last 24 Hours (Table) 08/22/21 08/22/21 Range/Units 17:05 20:52 POC Glucose (mg/dL) 134 H 198 H (75-99) mg/dL Microbiology - Last 24 Hours (Table) 08/21/21 18:30 Blood Culture - Preliminary Blood No Growth after 24 hours 08/21/21 18:30 Blood Culture - Preliminary Blood No Growth after 24 hours Thrombosis Risk Factor Assmnt - Choose All That Apply Any of the Below Risk Factors Present?: No Other Risk Factors: Yes Each Risk Factor Represents 2 Points: Age 61-74 years Other congenital or acquired thrombophilia - If yes, enter type in comment: No Thrombosis Risk Factor Assessment Total Risk Factor Score: 2 Thrombosis Risk Factor Assessment Level: Low Risk Assessment and Plan Plan: 1. Sepsis secondary to community acquired pneumonia. Start rocephin and azithromycin, duonebs. Pulmonology consult. Follow cultures 2. Chest pain. Likely pleurisy, Cardiology consult for further evaluation 3. Anxiety. Continue lexapro
--- NOTE | 2021-08-23 07:03 | XR ---
EXAMINATION TYPE: XR chest 1V portable DATE OF EXAM: 08/23/2021 COMPARISON: 08/21/2021 HISTORY: Pneumonia TECHNIQUE: Single frontal view of the chest is obtained. FINDINGS: There has been marked interval increase in the opacity in the right mid lower lung zone mo st consistent the pleural effusion and pneumonic infiltrate. The left lung remains clear. The heart size is normal and the vasculature is not congested. There is a right shoulder prosthesis and degeneration of the left glenohumeral joint. IMPRESSION: Marked interval worsening in the opacity in the right lung as described above.
[2021-08-23 07:44] LABS: Glucose,Whole Blood 121 mg/dL (75-99)
[2021-08-23] MEDS: IPRATROPIUM-ALBUTEROL 3 ML NEB INHALATION SCH ×4 (08:49→20:44)
[2021-08-23] MEDS: methylPREDNISolone SOD SUCCI 125 MG/2 ML VIAL IV SCH ×3 (09:06→23:16)
[2021-08-23] MEDS: PANTOPRAZOLE 40 MG/10 ML VIAL IVP SCH (09:06)
[2021-08-23] MEDS: INSULIN ASPART (NovoLOG) 100 UNIT/ML VIAL SQ SCH ×4 (09:07→21:37)
[2021-08-23] MEDS: NICOTINE 21MG/24HR PATCH TRANSDERM SCH (09:07)
[2021-08-23] MEDS: ENOXAPARIN 40 MG/0.4 ML SYRINGE SQ SCH (09:07)
[2021-08-23] MEDS: AZITHROMYCIN 500 MG TAB PO SCH (09:07)
[2021-08-23 12:07] LABS: Glucose,Whole Blood 89 mg/dL (75-99)
[2021-08-23 12:22] LABS: African American GFR (CKD) 108.5 (60.0-200.0); Anion Gap 17.7 mmol/L (10.00-18.00); BUN/Creat Ratio 19.14 Ratio (12.00-20.00); Blood Urea Nitrogen 13.4 mg/dL (9.0-27.0); Calcium 9.8 mg/dL (8.7-10.3); Carbon Dioxide 16.3 mmol/L (20.0-27.5); Non-African American GFR(CKD) 93.6 (60.0-200.0); Potassium 4.6 mmol/L (3.5-5.5)
[2021-08-23 13:42] LABS: HCT 38.1 % (39.6-50.0); HGB 12.4 g/dL (13.0-17.0); MCH 31.2 pg (27.0-32.0); MCHC 32.5 g/dL (32.0-37.0); MCV 95.7 fL (80.0-97.0); Mean Platelet Volume 10.7 fL (9.5-12.2); Platelet Count 314 X 10*3/uL (140-440); RBC 3.98 X 10*6/uL (4.40-5.60); RDW 12.5 % (11.5-14.5); WBC 22.19 X 10*3/uL (4.50-10.00)
--- NOTE | 2021-08-23 13:44 | P.PN ---
Subjective Progress Note Date: 08/23/21 71-year-old male patient presented to the hospital because of chest pain. He was also to bring of shortness of breath a few days duration. The patient presented to the emergency department yesterday. The patient had developed a right-sided chest wall pain. Upon arrival to the ED, he was quite anxious and he was pointing out to the right side of the chest that was quite painful and the pain was quite extensive at that point. No trauma. No chills. No fever. The patient was seen in the emergency department and the patient was found to have no fever. Hemodynamically stable, pulse ox was 94% on room in oxygen. Chest x-ray was done and a chest x-ray showed a consolidation in the right lower lobe and following that the patient was given a CTA that showed no evidence of any pulmonary embolism. There was a small right-sided pleural effusion. There was ill-defined the right lung base pulmonary infiltrates suspicious for an underlying pneumonia. Further blood work showed a white cell count of 14 with a hemoglobin of 14.5. D-dimer was at 4.15 and a normal correlation profile was noted. BUN was 22 with a creatinine of 0.6. Electrodes were normal. Troponins were negative. Pro-calcitonin level was 0.03 and the COVID 19 testing was negative. The patient was started on accommodation Rocephin and Zithromax. The patient was also started on IV Solu Medrol. The patient was also seen by cardiology. He is known to have hypertension, and he also is an abdominal aortic aneurysm receiving endovascular stent grafting back in 2016 at [facility]. He has also history of mild asthma, not receiving any maintenance treatment for now. The patient is seen today 08/23/2021 in follow-up on the regular medical floor. He's been up ambulating in his room. Awake and alert in no acute distress. He is maintaining good O2 saturations in the mid 90s on 2 L/m per nasal cannula. He's been afebrile. Hemodynamically stable. He denies any worsening chest pain. No worsening shortness of breath. Blood cultures reveal no growth. Sodium 141. Potassium 4.6. Creatinine 0.7. Chest x-ray reveals increasing opacity in the right lung. He is continued on IV Solu-Medrol, bronchodilators, antibiotics in the form of ceftriaxone. NicoDerm patch is in place. 0.9 normal saline at KVO. Objective - Vital Signs Vital signs: Vital Signs Temp 97.7 F 08/23/21 08:00 Pulse 94 08/23/21 12:44 Resp 18 08/23/21 09:26 BP 133/85 08/23/21 08:00 Pulse Ox 97 08/23/21 08:00 Intake & Output 08/22/21 08/23/21 08/23/21 18:59 06:59 18:59 Intake Total 354 500 180 Balance 354 500 180 Intake: Oral 354 500 180 Other: Voiding Method Toilet Toilet Urinal Urinal # Voids 3 2 - Exam GENERAL: Well-developed very pleasant 71-year-old male patient, in no acute distress. currently on 2 L of oxygen per nasal cannula Head exam was generally normal. There was no scleral icterus or corneal arcus. Mucous membranes were moist. HEENT: Head is normocephalic. Pupils are equal, round. Sclerae anicteric. Mucous membranes of the mouth are moist. Neck supple. No JVD or thyromegaly LUNGS: Respirations even and unlabored. Lungs with decreased air exchange and expiratory wheezing noted. Diminished in the right lung base HEART: Regular rate and rhythm. S1 and S2 heard. ABDOMEN: Soft. Nondistended. Nontender. EXTREMITIES: Normal range of motion. No clubbing or cyanosis. Peripheral pulses intact. No lower extremity edema Neurologically, the patient is awake and alert and the patient does not have any focal neurological deficit. Cranial nerves are essentially intact. Examination of the skin revealed no evidence of significant rashes, suspicious appearing nevi or other concerning lesions. - Labs CBC & Chem 7: 08/21/21 18:30 08/23/21 07:09 Labs: Abnormal Lab Results - Last 24 Hours (Table) 08/22/21 08/22/21 08/23/21 Range/Units 17:05 20:52 07:09 Carbon Dioxide 16.3 L (20.0-27.5) mmol/L Glucose 146 H (70-110) mg/dL POC Glucose (mg/dL) 134 H 198 H (75-99) mg/dL 08/23/21 Range/Units 07:42 Carbon Dioxide (20.0-27.5) mmol/L Glucose (70-110) mg/dL POC Glucose (mg/dL) 121 H (75-99) mg/dL Microbiology - Last 24 Hours (Table) 08/21/21 18:30 Blood Culture - Preliminary Blood No Growth after 24 hours 08/21/21 18:30 Blood Culture - Preliminary Blood No Growth after 24 hours Assessment and Plan Assessment: 1 right lower lobe pneumonia, likely bacterial, likely community-acquired an acute in nature and the patient developed a small right-sided parapneumonic effusion. Increasing in size on today's chest x-ray. Pro-calcitonin level has been negative. There is another patchy area of subpleural consolidation in the right lower lobe which could be potentially an area of pneumonia. Malignancy is felt to be less likely. Pulmonary embolism is also felt to be less likely at this point in time. 2 right-sided chest wall pain, limited pleurisy secondary to above 3 mild leukocytosis with a white cell count of 14 4 acute hypoxic respiratory failure currently on 2 L about 2 by nasal cannula 5 Abdominal aortic aneurysm post-endovascular stent grafting 6 hypertension 7 history of peptic ulcer disease 8 acid reflux 9 history of scoliosis of the spine. 10 COPD , maintained 11 smoker, 50 py 12 Completed COVID 19 vaccination times 3 Plan The patient was seen and evaluated Chest x-ray showing increased pleural effusions/infiltrate Currently stable and on 2 L nasal cannula Follow-up chest x-ray in a.m. If increasing fluid will plan for thoracentesis Continue the current treatment plan Increase his activity as tolerated Add incentive spirometer We will continue to follow I, the cosigning physician, performed a history & physical examination of the patient. Lungs sounds bilateral end expiratory wheeze, diminished in the right lung base. Maintaining good O2 saturations in the 90s on 2 L/m per nasal cannula. I discussed the assessment and plan of care with my nurse Madie inman. I attest to the above note as dictated by her.
[2021-08-23 14:24] LABS: Basophils # (A) 0.02 X 10*3/uL (0.00-0.10); Basophils % (A) 0.1 %; Eosinophils # (A) 0 X 10*3/uL (0.04-0.35); Eosinophils % (A) 0 %; Lymphocytes # (A) 0.48 X 10*3/uL (0.90-5.00); Lymphocytes % (A) 2.2 %; Monocytes # (A) 1.51 X 10*3/uL (0.20-1.00); Monocytes % (A) 6.8 %; Neutrophils # (A) 19.98 X 10*3/uL (1.80-7.70)
[2021-08-23] MEDS ORDERED: SODIUM CHLORIDE 0.9% 500 ML 250 ML IV ONE (15:44)
[2021-08-23] MEDS ORDERED: DILTIAZEM 125 MG in SODIUM CHLORIDE 0.9% 100 ML IV SCH (16:00)
[2021-08-23 17:15] LABS: Glucose,Whole Blood 151 mg/dL (75-99)
[2021-08-23] MEDS ORDERED: DEXTROSE 5% IN WATER 100 ML with AMIODARONE 300 MG IV ONE (18:00)
[2021-08-23] MEDS: lisinopriL 10 MG TAB PO SCH (20:37)
[2021-08-23] MEDS: ESCITALOPRAM 5 MG TAB PO SCH (20:37)
[2021-08-23] MEDS: SODIUM CHLORIDE 0.9% 1,000 ML IV SCH (20:38)
--- NOTE | 2021-08-23 20:42 | P.PN ---
Subjective This is a pleasant 71 years old male who presents with respiratory symptoms secondary to right coronary infection felt to be community acquired pneumonia and he was started on ceftriaxone, today he was still tachypneic with a breathing rate about 22-23 but with saturation acceptable in the 90s on 3 L/m of oxygen. Repeat chest x-ray today showing significant development of right side upon CT consistent with right pleural effusion. Pulmonary team's on the case and the recommended to continue with ceftriaxone as repeat chest x-ray tomorrow to see there is any worsening that were mandate thoracocentesis. Other than that he is kept on Solu-Medrol 60 mg for COPD exacerbation. CTA on admission was negative for PE. Probablycalcitonin is normal on admission at 0.03. Call the test was negative. WBC is 22,000. Patient also kept on Lovenox for DVT prophylaxis and Protonix. Later on patient converted to atrial fibrillation's with RVR, cardiology were consulted was started on Cardizem drip which is complicated to sinus rhythm for now. Objective - Vital Signs Vital signs: Vital Signs Temp 98.5 F 08/23/21 14:40 Pulse 104 H 08/23/21 19:25 Resp 22 08/23/21 19:25 BP 129/74 08/23/21 18:05 Pulse Ox 96 08/23/21 18:05 Intake & Output 08/23/21 08/23/21 08/24/21 06:59 18:59 06:59 Intake Total 500 379.167 Output Total 250 Balance 500 129.167 Intake: Intake, IV Titration 19.167 Amount Diltiazem 125 mg In 19.167 Sodium Chloride 0.9% 100 ml @ 10 MG/HR 10 mls/hr IV .[id number] [facility] Rx#: [id number] Oral 500 360 Output: Urine 250 Other: Voiding Method Toilet Toilet Toilet Urinal Urinal Urinal # Voids 2 - Exam GENERAL: The patient is alert and oriented x3, not in any acute distress. Well developed, well nourished. HEENT: Pupils are round and equally reacting to light. EOMI. No scleral icterus. No conjunctival pallor. Normocephalic, atraumatic. No pharyngeal erythema. No thyromegaly. CARDIOVASCULAR: S1 and S2 present. No murmurs, rubs, or gallops. -PULMONARY: Chest is clear to auscultation, no wheezing or crackles. Tachypnea, decreased breath sounds on the right lower site ABDOMEN: Soft, nontender, nondistended, normoactive bowel sounds. No palpable organomegaly. MUSCULOSKELETAL: No joint swelling or deformity. EXTREMITIES: No cyanosis, clubbing, or pedal edema. NEUROLOGICAL: Gross neurological examination did not reveal any focal deficits. SKIN: No rashes. no petechiae. - Labs CBC & Chem 7: 08/23/21 07:09 08/23/21 07:09 Labs: Abnormal Lab Results - Last 24 Hours (Table) 08/22/21 08/23/21 08/23/21 Range/Units 20:52 07:09 07:09 WBC 22.19 H (4.50-10.00) X 10*3/uL RBC 3.98 L (4.40-5.60) X 10*6/uL Hgb 12.4 L (13.0-17.0) g/dL Hct 38.1 L (39.6-50.0) % Immature Gran # 0.20 H (0.00-0.04) X 10*3/uL Neutrophils # 19.98 H (1.80-7.70) X 10*3/uL Lymphocytes # 0.48 L (0.90-5.00) X 10*3/uL Monocytes # 1.51 H (0.20-1.00) X 10*3/uL Eosinophils # 0 L (0.04-0.35) X 10*3/uL Carbon Dioxide 16.3 L (20.0-27.5) mmol/L Glucose 146 H (70-110) mg/dL POC Glucose (mg/dL) 198 H (75-99) mg/dL 08/23/21 08/23/21 Range/Units 07:42 17:14 WBC (4.50-10.00) X 10*3/uL RBC (4.40-5.60) X 10*6/uL Hgb (13.0-17.0) g/dL Hct (39.6-50.0) % Immature Gran # (0.00-0.04) X 10*3/uL Neutrophils # (1.80-7.70) X 10*3/uL Lymphocytes # (0.90-5.00) X 10*3/uL Monocytes # (0.20-1.00) X 10*3/uL Eosinophils # (0.04-0.35) X 10*3/uL Carbon Dioxide (20.0-27.5) mmol/L Glucose (70-110) mg/dL POC Glucose (mg/dL) 121 H 151 H (75-99) mg/dL Microbiology - Last 24 Hours (Table) 08/21/21 18:30 Blood Culture - Preliminary Blood No Growth after 48 hours 08/21/21 18:30 Blood Culture - Preliminary Blood No Growth after 24 hours Assessment and Plan Assessment: Right lower lobe pneumonia, suspicious for community acquired pneumonia Right pleural effusion secondary to above New-onset atrial fibrillation with RVR, converted to sinus rhythm Possible asthma/COPD exacerbation Hypertension History of GERD Plan: This is a pleasant 71 years old male who presents with right pneumonia and p leural effusion and A. fib. Continue with ceftriaxone Repeat chest x-ray in the morning and consider thoracocentesis for her pleural effusion per pulmonary services Pulmonary team on the case Consults cardiology for atrial fibrillation Labs and medication were reviewed.. Continue same treatment. Continue with symptomatic treatment. Resume home medication. Monitor lytes and vitals. DVT and GI prophylaxis. Further recommendations as per clinical course of the patient DVT prophylaxis: Subcutaneous Lovenox GI Prophylaxis: pi PT/OT: Pending
[2021-08-23 20:51] LABS: Glucose,Whole Blood 162 mg/dL (75-99)
--- NOTE | 2021-08-24 07:48 | XR ---
EXAMINATION TYPE: XR chest 1V portable DATE OF EXAM: 08/24/2021 COMPARISON: 08/23/2021 HISTORY: Pneumonia TECHNIQUE: Single frontal view of the chest is obtained. FINDINGS: Dense consolidation involving the right mid and lower lung zone obscuring the right hemidi aphragm unchanged compared to previous. Most likely represents combination of parenchymal airspace co nsolidation moderate to large pleural effusion. The left lung remains clear. There is no pneumothorax. Pulmonary vasculature does not appear grossly congested. There is a right shoulder prosthesis. IMPRESSION: No change in the right pleural effusion and lung consolidation.
[2021-08-24 07:50] LABS: Glucose,Whole Blood 121 mg/dL (75-99)
[2021-08-24] MEDS: INSULIN ASPART (NovoLOG) 100 UNIT/ML VIAL SQ SCH ×4 (08:59→21:09)
[2021-08-24] MEDS: IPRATROPIUM-ALBUTEROL 3 ML NEB INHALATION SCH ×4 (09:11→20:51)
[2021-08-24] MEDS: ENOXAPARIN 40 MG/0.4 ML SYRINGE SQ SCH (09:19)
[2021-08-24] MEDS: methylPREDNISolone SOD SUCCI 125 MG/2 ML VIAL IV SCH ×3 (09:19→23:00)
[2021-08-24] MEDS: PANTOPRAZOLE 40 MG/10 ML VIAL IVP SCH (09:19)
[2021-08-24] MEDS: NICOTINE 21MG/24HR PATCH TRANSDERM SCH (09:20)
--- NOTE | 2021-08-24 10:22 | CT ---
EXAMINATION TYPE: CT chest wo con DATE OF EXAM: 08/24/2021 COMPARISON: 08/21/2021 HISTORY: Parapneumonic effusion CT DLP: 241.2 mGycm. Automated Exposure Control for Dose Reduction was Utilized. TECHNIQUE: CT scan of the thorax is performed without IV contrast. FINDINGS: LUNGS: There is right-sided consolidation and moderate pleural effusion increased in size from prior exam. Underlying COPD noted. Left lung remains clear. No pneumothorax. MEDIASTINUM: Lack of IV contrast is noted to limit evaluation for mediastinal and especially hilar ad enopathy. Small pericardial effusion. Coronary artery calcification and atherosclerotic change aorta. OTHER: Hypertrophic and degenerative changes of the spine with discogenic marrow changes. Indetermina te right renal lesion with upper pole nonobstructing calculus. Hypodensity within the liver is indete rminate.. Stable left adrenal mass. IMPRESSION: 1. There is right-sided consolidation with increasing pleural effusion now moderate to large in size. Differential diagnosis includes compressive atelectasis versus pneumonia. 2. COPD and cardiomegaly with coronary artery calcifications. 3. There is a stable appearing left adrenal mass measuring 3.4 cm and -5 Hounsfield units suggestive an adenoma. 4. Nonobstructing right renal calculus.
--- NOTE | 2021-08-24 11:15 | P.PN ---
Subjective Progress Note Date: 08/24/21 The patient is a 71-year-old male who is currently admitted to the hospital with pneumonia. Cardiology was initially consulted for chest pain. ACS workup was unremarkable and echocardiogram has shown normal LV function, therefore cardiology signed off. Cardiology was re-consult at overnight for A. fib with RVR. The patient had received an amiodarone bolus and subsequently converted Cardizem drip. The patient was interviewed and examined sitting comfortably in bed. He states his breathing is better. He does not remember having any irregular heart rhythm. No chest pain or chest pressure. GENERAL: Well-appearing, well-nourished and in no acute distress. NECK: Supple without JVD or thyromegaly. LUNGS: Breath sounds diminished. Shallow breathing. Respiration equal. No rales or rhonchi. HEART: Regular rate and rhythm. S1 and S2 heard. EXTREMITIES: Normal range of motion, no edema. No clubbing or cyanosis. Peripheral pulses intact and strong. VITALS: Blood pressure 130/69, pulse 90, respiratory rate 18, temp 97.7F, SpO2 92% on 2 L nasal cannula TELEMETRY: Sinus mechanism with heart rates in the 90s IMPRESSION: Paroxysmal atrial fibrillation, converted to sinus mechanism Cardizem drip. Pneumonia, possible thoracentesis Hypertension History of AAA PLAN: Start verapamil 120 mg by mouth daily Avoid oral amiodarone with pulmonary disease Discontinue Lovenox and start novel anticoagulation. Patient may be going for thoracentesis after discussing with nursing staff. Changes to anticoagulation to be cleared through pulmonology. Further recommendations to be based on clinical course The patient has been seen and evaluated by nurse practitioner and coordinating physician. Plan of care has been reviewed and agreed upon by Dr Garcia. Objective - Vital Signs Vital signs: Vital Signs Temp 97.7 F 08/24/21 07:04 Pulse 91 08/24/21 09:20 Resp 18 08/24/21 07:04 BP 130/69 08/24/21 07:04 Pulse Ox 94 L 08/24/21 09:13 Intake & Output 08/23/21 08/24/21 08/24/21 18:59 06:59 18:59 Intake Total 379.167 420 Output Total 250 Balance 129.167 420 Intake: Intake, IV Titration 19.167 Amount Diltiazem 125 mg In 19.167 Sodium Chloride 0.9% 100 ml @ 10 MG/HR 10 mls/hr IV .[id number] [facility] Rx#: [id number] Oral 360 420 Output: Urine 250 Other: Voiding Method Toilet Toilet Urinal Urinal # Voids 2 - Labs CBC & Chem 7: 08/23/21 07:09 08/23/21 07:09 Labs: Abnormal Lab Results - Last 24 Hours (Table) 08/23/21 08/23/21 08/23/21 Range/Units 07:09 07:09 17:14 WBC 22.19 H (4.50-10.00) X 10*3/uL RBC 3.98 L (4.40-5.60) X 10*6/uL Hgb 12.4 L (13.0-17.0) g/dL Hct 38.1 L (39.6-50.0) % Immature Gran # 0.20 H (0.00-0.04) X 10*3/uL Neutrophils # 19.98 H (1.80-7.70) X 10*3/uL Lymphocytes # 0.48 L (0.90-5.00) X 10*3/uL Monocytes # 1.51 H (0.20-1.00) X 10*3/uL Eosinophils # 0 L (0.04-0.35) X 10*3/uL Carbon Dioxide 16.3 L (20.0-27.5) mmol/L Glucose 146 H (70-110) mg/dL POC Glucose (mg/dL) 151 H (75-99) mg/dL 08/23/21 08/24/21 Range/Units 20:50 07:49 WBC (4.50-10.00) X 10*3/uL RBC (4.40-5.60) X 10*6/uL Hgb (13.0-17.0) g/dL Hct (39.6-50.0) % Immature Gran # (0.00-0.04) X 10*3/uL Neutrophils # (1.80-7.70) X 10*3/uL Lymphocytes # (0.90-5.00) X 10*3/uL Monocytes # (0.20-1.00) X 10*3/uL Eosinophils # (0.04-0.35) X 10*3/uL Carbon Dioxide (20.0-27.5) mmol/L Glucose (70-110) mg/dL POC Glucose (mg/dL) 162 H 121 H (75-99) mg/dL Microbiology - Last 24 Hours (Table) 08/23/21 12:54 Gram Stain - Preliminary Sputum Sputum Culture - Preliminary 08/21/21 18:30 Blood Culture - Preliminary Blood No Growth after 48 hours 08/21/21 18:30 Blood Culture - Preliminary Blood No Growth after 48 hours
[2021-08-24 12:22] LABS: Glucose,Whole Blood 122 mg/dL (75-99)
[2021-08-24] MEDS: VERAPAMIL SR 120 MG TABLET.ER PO SCH (12:29)
--- NOTE | 2021-08-24 13:02 | P.PCN ---
Date of Procedure: 08/24/21 Preoperative Diagnosis: right , pleural effusion Postoperative Diagnosis: right , pleural effusion Procedure(s) Performed: right, thoracentesis Anesthesia: local Surgeon: Geovanna Blount Estimated Blood Loss (ml): 0 Condition: stable Disposition: floor Operative Findings: A time out was performed and the chest x-ray was reviewed, the appropriate side was confirmed and marked. My hands were washed immediately prior to the procedure. I wore a surgical cap, mask with protective eyewear, sterile gown and sterile gloves throughout the procedure. The patient was prepped and draped in a sterile manner using chlorhexidine scrub after the appropriate level was percussed and confirmed by ultrasound. 1% lidocaine was used to anesthesize the skin, subcutaneous tissue, superior aspect of the rib periosteum and parietal pleura. A finder needle was then introduced over the superior aspect of the rib to locate the pleural fluid; 2colored fluid was aspirated at a depth of approximately 2 cm. A 10-blade scalpel was used to otoniel the skin at the insertion site. The [id number]-Blpcggco needle was then introduced through the skin incision into the pleural space using negative aspiration pressure and the red colometric indicator to confirm appropriate positioning of the needle. The thoracentesis catheter was then threaded without difficulty. 650 ml of turbid colored fluid was removed without difficulty. The catheter was then removed. No immediate complications were noted during the procedure. A post-procedure chest x-ray is pending at the time of this note. The fluid will be sent for studies. Estimated blood loss is 0cc
--- NOTE | 2021-08-24 13:47 | XR ---
EXAMINATION TYPE: XR chest 1V portable DATE OF EXAM: 08/24/2021 COMPARISON: 08/24/2021 HISTORY: Post right thoracentesis TECHNIQUE: Single frontal view of the chest is obtained. FINDINGS: There is interval reduction in amount of pleural fluid relative to the prior exam with no sizable pneumothorax. Postsurgical change right shoulder. Left lung clear. Ectasia of the aorta. Hear t size stable. IMPRESSION: 1. No pneumothorax. 2. Interval reduction in amount of pleural fluid with persistent consolidation and small amount of fl uid.
--- NOTE | 2021-08-24 15:43 | P.PN ---
Subjective Progress Note Date: 08/24/21 Principal diagnosis: Pneumonia On 08/24/2021 patient in follow-up on medical surgical floor, patient is on 2 L of oxygen his pulse ox of 92%, vital signs have been stable, his been afebrile, today's x-ray has been reviewed, and follow-up CT chest without contrast showing right-sided consolidation with increasing pleural effusion moderate to large in size. Based on the findings of the computed tomography scan of the chest right- sided thoracentesis was done at the bedside by Dr. Blount, please refer to the procedure note, and 650 mL of turbid cloudy fluid was withdrawn and sent for analysis. Patient tolerated the procedure very well, postprocedure chest x-ray showed no pneumothorax, and interval reduction in the amount of pleural fluid with persistent consolidation and small amount of fluid. Patient remains on IV Solu-Medrol 60 mg every 8 hours, remains on Rocephin, Zithromax Has dropped off, but we will add back on. Objective - Vital Signs Vital signs: Vital Signs Temp 97.7 F 08/24/21 07:04 Pulse 97 08/24/21 12:25 Resp 18 08/24/21 07:04 BP 130/69 08/24/21 07:04 Pulse Ox 94 L 08/24/21 09:13 Intake & Output 08/23/21 08/24/21 08/24/21 18:59 06:59 18:59 Intake Total 379.167 770 Output Total 250 Balance 129.167 770 Intake: Intake, IV Titration 19.167 Amount Diltiazem 125 mg In 19.167 Sodium Chloride 0.9% 100 ml @ 10 MG/HR 10 mls/hr IV .[id number] [facility] Rx#: [id number] Oral 360 770 Output: Urine 250 Other: Voiding Method Toilet Toilet Urinal Urinal # Voids 2 - Exam GENERAL EXAM: Alert, very pleasant, 71-year-old white male, in 2 L of oxygen and the pulse ox of 92% comfortable in no apparent distress. HEAD: Normocephalic/atraumatic. EYES: Normal reaction of pupils, equal size. Conjunctiva pink, sclera white. NOSE: Clear with pink turbinates. THROAT: No erythema or exudates. NECK: No masses, no JVD, no thyroid enlargement, no adenopathy. CHEST: No chest wall deformity. Symmetrical expansion. LUNGS: diminished breath sounds at the right base with limited crackles CVS: Regular rate and rhythm, normal S1 and S2, no gallops, no murmurs, no rubs ABDOMEN: Soft, nontender. No hepatosplenomegaly, normal bowel sounds, no guarding or rigidity. EXTREMITIES: No clubbing, no edema, no cyanosis, 2+ pulses and upper and lower extremities. MUSCULOSKELETAL: Muscle strength and tone normal. SPINE: No scoliosis or deformity SKIN: No rashes CENTRAL NERVOUS SYSTEM: Alert and oriented -3. No focal deficits, tone is normal in all 4 extremities. PSYCHIATRIC: Alert and oriented -3. Appropriate affect. Intact judgment and i nsight. - Labs CBC & Chem 7: 08/23/21 07:09 08/23/21 07:09 Labs: Abnormal Lab Results - Last 24 Hours (Table) 08/23/21 08/23/21 08/24/21 Range/Units 17:14 20:50 07:49 POC Glucose (mg/dL) 151 H 162 H 121 H (75-99) mg/dL 08/24/21 Range/Units 12:20 POC Glucose (mg/dL) 122 H (75-99) mg/dL Microbiology - Last 24 Hours (Table) 08/23/21 12:54 Gram Stain - Preliminary Sputum Sputum Culture - Preliminary 08/21/21 18:30 Blood Culture - Preliminary Blood No Growth after 48 hours 08/21/21 18:30 Blood Culture - Preliminary Blood No Growth after 48 hours Assessment and Plan Plan: Assessment: 1 right lower lobe pneumonia, likely bacterial, likely community-acquired an acute in nature and the patient developed a small right-sided parapneumonic effusion. Increasing in size on today's chest x-ray. Pro-calcitonin level has been negative. There is another patchy area of subpleural consolidation in the right lower lobe which could be potentially an area of pneumonia. Malignancy is felt to be less likely. Pulmonary embolism is also felt to be less likely at this point in time. Patient and right-sided thoracentesis today on 08/24/2021 with removal of 650 mL of turbid cloudy pleural fluid which was sent for analysis 2 right-sided chest wall pain, limited pleurisy secondary to above 3 mild leukocytosis with a white cell count of 14 4 acute hypoxic respiratory failure currently on 2 L about 2 by nasal cannula 5 Abdominal aortic aneurysm post-endovascular stent grafting 6 hypertension 7 history of peptic ulcer disease 8 acid reflux 9 history of scoliosis of the spine. 10 COPD , maintained 11 smoker, 50 py 12 Completed COVID 19 vaccination times 3 Plan: We completed right-sided thoracentesis today on the patient and he tolerated procedure well Postprocedure chest x-ray has been reviewed showing no pneumothorax, interval reduction in the amount of pleural fluid but persistent consolidation and small amount of fluid Pleural fluid was sent for analysis and cultures Continue Rocephin, we will add azithromycin back on Continue IV steroids and nebulized bronchodilators We'll continue to follow I performed a history & physical examination of the patient and discussed their management with my nurse practitioner, Caroline Knox. I reviewed the nurse practitioner's note and agree with the documented findings and plan of care. Lung sounds are positive for dim breath sounds throughout the lung robert. The findings and the impression was discussed with the patient. I attest to the documentation by the nurse practitioner. Time with Patient: Less than 30
[2021-08-24] MEDS: AZITHROMYCIN 500 MG in SODIUM CHLORIDE 0.9% 250 ML IVPB SCH (16:41)
[2021-08-24 17:17] LABS: Glucose,Whole Blood 146 mg/dL (75-99)
[2021-08-24] MEDS: APIXABAN 5 MG TAB PO SCH (20:29)
[2021-08-24] MEDS: ESCITALOPRAM 5 MG TAB PO SCH (20:29)
[2021-08-24] MEDS: lisinopriL 10 MG TAB PO SCH (20:30)
[2021-08-24] MEDS: SODIUM CHLORIDE 0.9% 1,000 ML IV SCH (20:33)
[2021-08-24 20:43] LABS: Glucose, BF Source Pleural Fluid; Glucose, Body Fluid 7 mg/dL; Total Protein, Body Fluid 3580 mg/dL
[2021-08-24 21:08] LABS: Glucose,Whole Blood 157 mg/dL (75-99)
[2021-08-24 21:22] LABS: LDH, Body Fluid Source Pleural Fluid
--- NOTE | 2021-08-24 22:16 | P.PN ---
Subjective This is a pleasant 71 years old male who presents with respiratory symptoms secondary to right coronary infection felt to be community acquired pneumonia and he was started on ceftriaxone, today he was still tachypneic with a breathing rate about 22-23 but with saturation acceptable in the 90s on 3 L/m of oxygen. Repeat chest x-ray today showing significant development of right side upon CT consistent with right pleural effusion. Pulmonary team's on the case and the recommended to continue with ceftriaxone as repeat chest x-ray tomorrow to see there is any worsening that were mandate thoracocentesis. Other than that he is kept on Solu-Medrol 60 mg for COPD exacerbation. CTA on admission was negative for PE. Probablycalcitonin is normal on admission at 0.03. Call the test was negative. WBC is 22,000. Patient also kept on Lovenox for DVT prophylaxis and Protonix. Later on patient converted to atrial fibrillation's with RVR, cardiology were consulted was started on Cardizem drip which is complicated to sinus rhythm for now. 08/24/2021 Patient is to Today and increasing with more easier however he still short of breath. Repeat chest x-ray showing persistent right pleural effusion and he underwent thoracocentesis where 650 mL of turbid fluid has been informed CT of the thorax without contrast showing right-sided consolidation with pleural effusion, COPD, 3.4 cm left adrenal mass most likely adenoma per radiologist and nonobstructing right renal calculus. He remains on ceftriaxone and Solu-Medrol 60 mg Other than that he is hemodynamically stable. 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 fib and his placed on verapamil 120 mg and Eliquis Objective - Vital Signs Vital signs: Vital Signs Temp 97.7 F 08/24/21 07:04 Pulse 91 08/24/21 09:20 Resp 18 08/24/21 07:04 BP 130/69 08/24/21 07:04 Pulse Ox 94 L 08/24/21 09:13 Intake & Output 08/23/21 08/24/21 08/24/21 18:59 06:59 18:59 Intake Total 379.167 420 Output Total 250 Balance 129.167 420 Intake: Intake, IV Titration 19.167 Amount Diltiazem 125 mg In 19.167 Sodium Chloride 0.9% 100 ml @ 10 MG/HR 10 mls/hr IV .[id number] [facility] Rx#: [id number] Oral 360 420 Output: Urine 250 Other: Voiding Method Toilet Toilet Urinal Urinal # Voids 2 - Exam GENERAL: The patient is alert and oriented x3, not in any acute distress. Well developed, well nourished. HEENT: Pupils are round and equally reacting to light. EOMI. No scleral icterus. No conjunctival pallor. Normocephalic, atraumatic. No pharyngeal erythema. No thyromegaly. CARDIOVASCULAR: S1 and S2 present. No murmurs, rubs, or gallops. -PULMONARY: Chest is clear to auscultation, no wheezing or crackles. Tachypnea, decreased breath sounds on the right lower site ABDOMEN: Soft, nontender, nondistended, normoactive bowel sounds. No palpable organomegaly. MUSCULOSKELETAL: No joint swelling or deformity. EXTREMITIES: No cyanosis, clubbing, or pedal edema. NEUROLOGICAL: Gross neurological examination did not reveal any focal deficits. SKIN: No rashes. no petechiae. - Labs CBC & Chem 7: 08/23/21 07:09 08/23/21 07:09 Labs: Abnormal Lab Results - Last 24 Hours (Table) 08/23/21 08/23/21 08/23/21 Range/Units 07:09 07:09 17:14 WBC 22.19 H (4.50-10.00) X 10*3/uL RBC 3.98 L (4.40-5.60) X 10*6/uL Hgb 12.4 L (13.0-17.0) g/dL Hct 38.1 L (39.6-50.0) % Immature Gran # 0.20 H (0.00-0.04) X 10*3/uL Neutrophils # 19.98 H (1.80-7.70) X 10*3/uL Lymphocytes # 0.48 L (0.90-5.00) X 10*3/uL Monocytes # 1.51 H (0.20-1.00) X 10*3/uL Eosinophils # 0 L (0.04-0.35) X 10*3/uL Carbon Dioxide 16.3 L (20.0-27.5) mmol/L Glucose 146 H (70-110) mg/dL POC Glucose (mg/dL) 151 H (75-99) mg/dL 08/23/21 08/24/21 Range/Units 20:50 07:49 WBC (4.50-10.00) X 10*3/uL RBC (4.40-5.60) X 10*6/uL Hgb (13.0-17.0) g/dL Hct (39.6-50.0) % Immature Gran # (0.00-0.04) X 10*3/uL Neutrophils # (1.80-7.70) X 10*3/uL Lymphocytes # (0.90-5.00) X 10*3/uL Monocytes # (0.20-1.00) X 10*3/uL Eosinophils # (0.04-0.35) X 10*3/uL Carbon Dioxide (20.0-27.5) mmol/L Glucose (70-110) mg/dL POC Glucose (mg/dL) 162 H 121 H (75-99) mg/dL Microbiology - Last 24 Hours (Table) 08/23/21 12:54 Gram Stain - Preliminary Sputum Sputum Culture - Preliminary 08/21/21 18:30 Blood Culture - Preliminary Blood No Growth after 48 hours 08/21/21 18:30 Blood Culture - Preliminary Blood No Growth after 48 hours Assessment and Plan Assessment: Right lower lobe pneumonia, suspicious for community acquired pneumonia Right pleural effusion secondary to above New-onset atrial fibrillation with RVR, converted to sinus rhythm Possible asthma/COPD exacerbation Hypertension History of GERD Plan: This is a pleasant 71 years old male who presents with right pneumonia and pleural effusion and A. fib. Continue with ceftriaxone, Zithromax and to today Status post thoracocentesis, follow-up culture results Pulmonary team on the case Consults cardiology for atrial fibrillation. The place the patient on verapamil and Eliquis Labs and medication were reviewed.. Continue same treatment. Continue with symptomatic treatment. Resume home medication. Monitor lytes and vitals. DVT and GI prophylaxis. Further recommendations as per clinical course of the patient DVT prophylaxis: Eliquis GI Prophylaxis: pi PT/OT: Pending
[2021-08-24 23:46] LABS: Appearance,BF Cloudy
[2021-08-25 06:51] LABS: Glucose,Whole Blood 122 mg/dL (75-99)
[2021-08-25] MEDS: INSULIN ASPART (NovoLOG) 100 UNIT/ML VIAL SQ SCH ×4 (08:49→21:26)
[2021-08-25] MEDS: IPRATROPIUM-ALBUTEROL 3 ML NEB INHALATION SCH ×4 (08:51→20:06)
[2021-08-25] MEDS: methylPREDNISolone SOD SUCCI 125 MG/2 ML VIAL IV SCH ×2 (08:58→16:37)
[2021-08-25] MEDS: VERAPAMIL SR 120 MG TABLET.ER PO SCH (08:59)
[2021-08-25] MEDS: NICOTINE 21MG/24HR PATCH TRANSDERM SCH (08:59)
[2021-08-25] MEDS: PANTOPRAZOLE 40 MG/10 ML VIAL IVP SCH (08:59)
[2021-08-25] MEDS: APIXABAN 5 MG TAB PO SCH ×2 (08:59→21:37)
--- NOTE | 2021-08-25 09:06 | XR ---
EXAMINATION TYPE: XR chest 2V DATE OF EXAM: 08/25/2021 COMPARISON: Chest x-ray and CT 08/24/2021 HISTORY: Pneumonia TECHNIQUE: Frontal and lateral views of the chest are obtained. FINDINGS: Confluent density at the right lung base persists. Prominent lung volumes suggest underlyi ng COPD. Cardiac mediastinal silhouette is stable, there is underlying emphysema. No evident pneumoth orax. Postop change noted to the right shoulder. IMPRESSION: Correlate for right lower lobe pneumonia, difficult to exclude associated effusion
--- NOTE | 2021-08-25 10:15 | P.PN ---
Subjective Progress Note Date: 08/25/21 HISTORY OF PRESENT ILLNESS: 08/22/2021 This is a 71-year-old male with a past medical history for hypertension, AAA with stenting in 2016 at [place], and nicotine dependence. Patient does not follow with a linderman operator. We have been asked to see the patient in consultation for chest pain. Patient examined at the bedside. patient states he presented to the hospital with a chief complaint of shortness of breath. He states his shortness of breath started 3 or 4 days ago. He is currently being treated for pneumonia. The patient states he has been having chest pain for the past day or 2. He states the pain is on the right side of his chest. He states the pain is worse with deep inspiration. He states the pain is also worse with coughing and with movement. He denies any radiation of the pain. EKG reveals sinus tachycardia with PVCs. No signs of acute ischemia. Chest xray right lung base abnormalities. Findings are suspicious for pneumonia. Laboratory data: WBC 14.0. Hemoglobin 14.5. Platelet count 407. D-dimer 4.15. sodium 138. Potassium 3.9. BUN 22. Creatinine 0.65. Lactic acid 3.2. Repeat 0.8. Troponin negative 2. Current home cardiac medications include lisinopril 30 mg at night Echocardiogram completed revealing ejection fraction 55-60%, trace to mild mitral regurgitation and mild tricuspid regurgitation 08/25/2021 Cardiology was reconsulted over the weekend to see patient secondary to A. fib with RVR. The patient denies a history of atrial fibrillation. The patient was started on a Cardizem drip and converted to sinus mechanism. The patient is maintaining sinus mechanism this morning. He underwent right-sided thoracentesis yesterday with removal of 650 mL. He has been resumed on his Eliquis. Patient is also receiving verapamil 120 mg daily PHYSICAL EXAM: VITAL SIGNS: Reviewed. GENERAL: Well-developed in no acute distress. NECK: Supple. No JVD or thyromegaly LUNGS: Respirations even and unlabored. Lungs diminished bilaterally, right greater than left. HEART: Regular rate and rhythm. S1 and S2 heard. EXTREMITIES: Normal range of motion. No clubbing or cyanosis. Peripheral pulses intact. No lower extremity edema ASSESSMENT: Right-sided pneumonia Status post right thoracentesis with removal of 650 mL New-onset paroxysmal atrial fibrillation with RVR Chest pain, atypical, troponin negative 3, pleuritic Hypertension History of AAA with stenting in 2016 at [place] PLAN: Continue Eliquis for anticoagulation Continue verapamil Pulmonary following No further inpatient recommendations from a cardiac standpoint. We will sign off. Please reconsult if needed. Nurse practitioner note has been reviewed by physician. Signing provider agrees with the documented findings, assessment, and plan of care. Objective - Vital Signs Vital signs: Vital Signs Temp 97.6 F 08/25/21 07:57 Pulse 88 08/25/21 09:02 Resp 18 08/25/21 07:57 BP 148/84 08/25/21 07:57 Pulse Ox 93 L 08/25/21 07:57 Intake & Output 08/24/21 08/25/21 08/25/21 18:59 06:59 18:59 Intake Total 1120 240 Balance 1120 240 Intake: Oral 1120 240 Other: Voiding Method Toilet Urinal # Voids 1 - Labs CBC & Chem 7: 08/23/21 07:09 08/23/21 07:09 Labs: Abnormal Lab Results - Last 24 Hours (Table) 08/24/21 08/24/21 08/24/21 Range/Units 12:20 17:16 21:07 POC Glucose (mg/dL) 122 H 146 H 157 H (75-99) mg/dL 08/25/21 Range/Units 06:41 POC Glucose (mg/dL) 122 H (75-99) mg/dL Microbiology - Last 24 Hours (Table) 08/24/21 12:58 Gram Stain - Preliminary Pleural Fluid Body Fluid Culture - Preliminary 08/21/21 18:30 Blood Culture - Preliminary Blood No Growth after 72 hours 08/21/21 18:30 Blood Culture - Preliminary Blood No Growth after 72 hours 08/24/21 12:58 Anaerobic Culture - Preliminary Pleural Fluid 08/24/21 12:58 Fungal Culture - Preliminary Pleural Fluid 08/23/21 12:54 Gram Stain - Preliminary Sputum Sputum Culture - Preliminary
[2021-08-25 11:15] LABS: Magnesium 2.1 mg/dL (1.5-2.4)
[2021-08-25 11:18] LABS: African American GFR (CKD) 108.5 (60.0-200.0); Anion Gap 10.2 mmol/L (10.00-18.00); BUN/Creat Ratio 33.86 Ratio (12.00-20.00); Blood Urea Nitrogen 23.7 mg/dL (9.0-27.0); Calcium 9.7 mg/dL (8.7-10.3); Carbon Dioxide 23.8 mmol/L (20.0-27.5); Non-African American GFR(CKD) 93.6 (60.0-200.0); Potassium 4.4 mmol/L (3.5-5.5)
[2021-08-25 11:36] LABS: Basophils # (A) 0.02 X 10*3/uL (0.00-0.10); Basophils % (A) 0.1 %; Eosinophils # (A) 0 X 10*3/uL (0.04-0.35); Eosinophils % (A) 0 %; HCT 40.9 % (39.6-50.0); MCH 30.5 pg (27.0-32.0); MCHC 31.8 g/dL (32.0-37.0); Mean Platelet Volume 10.8 fL (9.5-12.2); Monocytes # (A) 0.93 X 10*3/uL (0.20-1.00); Monocytes % (A) 5.6 %; Neutrophils # (A) 15.08 X 10*3/uL (1.80-7.70); Neutrophils % (A) 90.5 %; Platelet Count 356 X 10*3/uL (140-440); RBC 4.26 X 10*6/uL (4.40-5.60); RDW 12.9 % (11.5-14.5); WBC 16.66 X 10*3/uL (4.50-10.00)
[2021-08-25 13:09] LABS: Glucose,Whole Blood 135 mg/dL (75-99)
--- NOTE | 2021-08-25 14:21 | P.PN ---
Subjective Progress Note Date: 08/25/21 Principal diagnosis: Right lower lobe pneumonia, community-acquired, and right-sided parapneumonic effusion. On 08/24/2021 patient in follow-up on medical surgical floor, patient is on 2 L of oxygen his pulse ox of 92%, vital signs have been stable, his been afebrile, today's x-ray has been reviewed, and follow-up CT chest without contrast showing right-sided consolidation with increasing pleural effusion moderate to large in size. Based on the findings of the computed tomography scan of the chest right- sided thoracentesis was done at the bedside by Dr. Blount, please refer to the procedure note, and 650 mL of turbid cloudy fluid was withdrawn and sent for analysis. Patient tolerated the procedure very well, postprocedure chest x-ray showed no pneumothorax, and interval reduction in the amount of pleural fluid with persistent consolidation and small amount of fluid. Patient remains on IV Solu-Medrol 60 mg every 8 hours, remains on Rocephin, Zithromax Has dropped off, but we will add back on. Patient was reevaluated today on 08/25/2021, patient is on 2 L nasal cannula, resting in bed, in no distress, felt much better since he underwent thoracentesis. Based on the chemical profile, the fluid is definitely exudative in nature, and could very well be empyema related, his LDH is high total protein is high, and the glucose is only 7. However so far that Gram stain is negative and the cultures are negative. Blood cultures are negative and the sputum is nondiagnostic. Clinically however the patient is feeling better. Objective - Vital Signs Vital signs: Vital Signs Temp 97.6 F 08/25/21 07:57 Pulse 88 08/25/21 12:24 Resp 18 08/25/21 07:57 BP 148/84 08/25/21 07:57 Pulse Ox 91 L 08/25/21 12:13 Intake & Output 08/24/21 08/25/21 08/25/21 18:59 06:59 18:59 Intake Total 1120 360 Balance 1120 360 Intake: Oral 1120 360 Other: Voiding Method Toilet Urinal # Voids 1 - Exam GENERAL EXAM: Revealed 71-year-old white male in no distress, on 2 L nasal cannula. Head: Atraumatic, normocephalic. EENT: PERRLA, EOMI, nonicteric, no neck masses, no JVD, no stridor. CHEST: Symmetrical chest expansion, diminished breath sounds at the bases, no crackles or rhonchi or wheezes. CVS: Distant S1 and S2, no S3 gallop. ABDOMEN: Soft, nontender. No hepatosplenomegaly, normal bowel sounds, no gua rding or rigidity. EXTREMITIES: No clubbing, no edema, no cyanosis, 2+ pulses and upper and lower extremities. MUSCULOSKELETAL: Muscle strength and tone normal. SKIN: No rashes CENTRAL NERVOUS SYSTEM: No gross focal neurologic deficits. PSYCHIATRIC: Normal mood, affect and normal mental status examination - Labs CBC & Chem 7: 08/25/21 07:23 08/25/21 07:23 Labs: Abnormal Lab Results - Last 24 Hours (Table) 08/24/21 08/24/21 08/25/21 Range/Units 17:16 21:07 06:41 WBC (4.50-10.00) X 10*3/uL RBC (4.40-5.60) X 10*6/uL MCHC (32.0-37.0) g/dL Immature Gran # (0.00-0.04) X 10*3/uL Neutrophils # (1.80-7.70) X 10*3/uL Lymphocytes # (0.90-5.00) X 10*3/uL Eosinophils # (0.04-0.35) X 10*3/uL BUN/Creatinine Ratio (12.00-20.00) Ratio Glucose (70-110) mg/dL POC Glucose (mg/dL) 146 H 157 H 122 H (75-99) mg/dL 08/25/21 08/25/21 08/25/21 Range/Units 07:23 07:23 13:07 WBC 16.66 H (4.50-10.00) X 10*3/uL RBC 4.26 L (4.40-5.60) X 10*6/uL MCHC 31.8 L (32.0-37.0) g/dL Immature Gran # 0.13 H (0.00-0.04) X 10*3/uL Neutrophils # 15.08 H (1.80-7.70) X 10*3/uL Lymphocytes # 0.50 L (0.90-5.00) X 10*3/uL Eosinophils # 0 L (0.04-0.35) X 10*3/uL BUN/Creatinine Ratio 33.86 H (12.00-20.00) Ratio Glucose 123 H (70-110) mg/dL POC Glucose (mg/dL) 135 H (75-99) mg/dL Microbiology - Last 24 Hours (Table) 08/24/21 12:58 Gram Stain - Preliminary Pleural Fluid Body Fluid Culture - Preliminary 08/23/21 12:54 Gram Stain - Final Sputum Sputum Culture - Final 08/21/21 18:30 Blood Culture - Preliminary Blood No Growth after 72 hours 08/21/21 18:30 Blood Culture - Preliminary Blood No Growth after 72 hours 08/24/21 12:58 Anaerobic Culture - Preliminary Pleural Fluid 08/24/21 12:58 Fungal Culture - Preliminary Pleural Fluid Assessment and Plan Assessment: Impression: Acute community-acquired the right lower lobe pneumonia with parapneumonic effusion, possible empyema. Right-sided chest wall pain secondary to pleural effusion Abdominal aortic aneurysm, post endovascular stent grafting. Acute hypoxic respiratory failure secondary to pneumonia and pleural effusion benign essential hypertension Underlying COPD presently inactive [id number] smoking history Fully vaccinated. Recommendation: Continue antibiotics Awaiting the final cultures on the pleural effusion May consider repeat CT of the chest May or may not require pigtail catheter placement by interventional radiology Will continue to follow. Time with Patient: Less than 30
--- NOTE | 2021-08-25 14:28 | P.PN ---
Subjective Progress Note Date: 08/25/21 Evangelist Woodall is a 71 yo M with PMH of HTN, COPD, tobacco abuse who presented to the ED complaining of chest pain as well as increasing shortness of breath over the past few days. He complains that he has been having R sided chest pain and tightness which has been sharp and constant in nature. He denies p alpitations, sweats, fever, chills. He has been experiencing cough as well. On presentation pt tachycardic, tachypneic, WBC 14k, d-dimer 4.15, procalcitonin negative, trop negative. CTA performed and showing R sided consolidation and pleural effusion. 08/25/2021 sitting up at side of bed, eating breakfast, reporting less shortness of breath. He underwent a right thoracentesis yesterday with 650 MLS/turbid appearance ,drained. Tolerated procedure well. Maintained on IV steroids, ceftriaxone and azithromycin. Denies cough. Reports no further right-sided chest pain. Chest x-ray reporting persistent confluent density at the right lung base, prominent lung volumes suggestive of underlying COPD, underlying emphysema, difficult to exclude associated effusion. Maintaining O2 sats in the 90s on 2 L nasal cannula. Afebrile, WBC trending down, 16.6. Objective - Vital Signs Vital signs: Vital Signs Temp 97.6 F 08/25/21 07:57 Pulse 88 08/25/21 12:24 Resp 18 08/25/21 07:57 BP 148/84 08/25/21 07:57 Pulse Ox 91 L 08/25/21 12:13 Intake & Output 08/24/21 08/25/21 08/25/21 18:59 06:59 18:59 Intake Total 1120 240 Balance 1120 240 Intake: Oral 1120 240 Other: Voiding Method Toilet Urinal # Voids 1 - Exam General: Sitting up at side of bed, NAD. Vitals reviewed Eyes: PERRL, EOMI, conjunctiva normal HENT: normocephalic, mucus membranes moist Neck: supple, no JVD Lungs: normal respiratory effort. Diminished. No crackles. CV: Regular rate and rhythm, no murmur. Peripheral pulses 2+ Abdomen: soft, nondistended, no organomegaly Skin: warm and dry. Neuro: A&Ox3, normal mood and affect - Labs CBC & Chem 7: 08/25/21 07:23 08/25/21 07:23 Labs: Abnormal Lab Results - Last 24 Hours (Table) 08/24/21 08/24/21 08/25/21 Range/Units 17:16 21:07 06:41 WBC (4.50-10.00) X 10*3/uL RBC (4.40-5.60) X 10*6/uL MCHC (32.0-37.0) g/dL Immature Gran # (0.00-0.04) X 10*3/uL Neutrophils # (1.80-7.70) X 10*3/uL Lymphocytes # (0.90-5.00) X 10*3/uL Eosinophils # (0.04-0.35) X 10*3/uL BUN/Creatinine Ratio (12.00-20.00) Ratio Glucose (70-110) mg/dL POC Glucose (mg/dL) 146 H 157 H 122 H (75-99) mg/dL 08/25/21 08/25/21 08/25/21 Range/Units 07:23 07:23 13:07 WBC 16.66 H (4.50-10.00) X 10*3/uL RBC 4.26 L (4.40-5.60) X 10*6/uL MCHC 31.8 L (32.0-37.0) g/dL Immature Gran # 0.13 H (0.00-0.04) X 10*3/uL Neutrophils # 15.08 H (1.80-7.70) X 10*3/uL Lymphocytes # 0.50 L (0.90-5.00) X 10*3/uL Eosinophils # 0 L (0.04-0.35) X 10*3/uL BUN/Creatinine Ratio 33.86 H (12.00-20.00) Ratio Glucose 123 H (70-110) mg/dL POC Glucose (mg/dL) 135 H (75-99) mg/dL Microbiology - Last 24 Hours (Table) 08/24/21 12:58 Gram Stain - Preliminary Pleural Fluid Body Fluid Culture - Preliminary 08/23/21 12:54 Gram Stain - Final Sputum Sputum Culture - Final 08/21/21 18:30 Blood Culture - Preliminary Blood No Growth after 72 hours 01/13/22 18:30 Blood Culture - Preliminary Blood No Growth after 72 hours 08/24/21 12:58 Anaerobic Culture - Preliminary Pleural Fluid 08/24/21 12:58 Fungal Culture - Preliminary Pleural Fluid Assessment and Plan Assessment: Sepsis secondary to community-acquired pneumonia Right parapneumonic effusion, possible empyema, status post right thoracentesis,650ml turbid Chest pain, suspect related to the above, subsided New onset paroxysmal atrial fibrillation with RVR Acute hypoxic respiratory failure secondary to all the above Gastroesophageal reflux disease COPD, stable Ongoing nicotine dependence Hypertension History of AAA with stenting 2015 Anxiety Plan: Continue on current medication regime ,monitoring and symptomatic treatment. Anticoagulation with Eliquis resumed post thoracentesis. Pleural fluid cultures, cytology pending. aggressive pulmonary toileting ,nebulized bronchodilators, IV steroids, Rocephin, Zithromax, incentive spirometer reinforced. Follow closely with pulmonary. The impression and plan of care has been dictated as directed. : I performed a history and examination of this patient, discussed the same with the dictator. I agree with the dictator's note ,documented as a scribe. Any additional findings or plans will be noted.
[2021-08-25] MEDS: AZITHROMYCIN 500 MG in SODIUM CHLORIDE 0.9% 250 ML IVPB SCH (16:37)
[2021-08-25 17:22] LABS: Glucose,Whole Blood 163 mg/dL (75-99)
[2021-08-25 21:24] LABS: Glucose,Whole Blood 119 mg/dL (75-99)
[2021-08-25] MEDS: ESCITALOPRAM 5 MG TAB PO SCH (21:37)
[2021-08-25] MEDS: lisinopriL 10 MG TAB PO SCH (21:37)
[2021-08-25] MEDS: SODIUM CHLORIDE 0.9% 1,000 ML IV SCH (21:40)
[2021-08-26] MEDS: methylPREDNISolone SOD SUCCI 125 MG/2 ML VIAL IV SCH ×3 (01:09→16:25)
[2021-08-26 07:30] LABS: Glucose,Whole Blood 108 mg/dL (75-99)
[2021-08-26] MEDS: IPRATROPIUM-ALBUTEROL 3 ML NEB INHALATION SCH ×4 (07:57→19:46)
[2021-08-26] MEDS: INSULIN ASPART (NovoLOG) 100 UNIT/ML VIAL SQ SCH ×4 (08:07→22:33)
[2021-08-26] MEDS: VERAPAMIL SR 120 MG TABLET.ER PO SCH (08:14)
[2021-08-26] MEDS: APIXABAN 5 MG TAB PO SCH (08:14)
[2021-08-26] MEDS: PANTOPRAZOLE 40 MG/10 ML VIAL IVP SCH (08:15)
[2021-08-26] MEDS: NICOTINE 21MG/24HR PATCH TRANSDERM SCH (08:15)
--- NOTE | 2021-08-26 11:54 | P.PN ---
Subjective Progress Note Date: 08/26/21 Evangelist Woodall is a 71 yo M with PMH of HTN, COPD, tobacco abuse who presented to the ED complaining of chest pain as well as increasing shortness of breath over the past few days. He complains that he has been having R sided chest pain and tightness which has been sharp and constant in nature. He denies p alpitations, sweats, fever, chills. He has been experiencing cough as well. On presentation pt tachycardic, tachypneic, WBC 14k, d-dimer 4.15, procalcitonin negative, trop negative. CTA performed and showing R sided consolidation and pleural effusion. 08/25/2021 sitting up at side of bed, eating breakfast, reporting less shortness of breath. He underwent a right thoracentesis yesterday with 650 MLS/turbid appearance ,drained. Tolerated procedure well. Maintained on IV steroids, ceftriaxone and azithromycin. Denies cough. Reports no further right-sided chest pain. Chest x-ray reporting persistent confluent density at the right lung base, prominent lung volumes suggestive of underlying COPD, underlying emphysema, difficult to exclude associated effusion. Maintaining O2 sats in the 90s on 2 L nasal cannula. Afebrile, WBC trending down, 16.6. 08/26/2021 thoracentesis fluid, exudative, with suspected loculated empyema. Eliquis placed on hold for her upcoming pigtail catheter placement via interventional radiology as recommended per pulmonary. Cultures/cytology pending Sitting up at side of bed, feels well. Maintaining O2 sats in the 90s on room air. Denies any chest pain, palpitations or shortness of breath. Afebrile. Objective - Vital Signs Vital signs: Vital Signs Temp 97.8 F 08/26/21 08:00 Pulse 88 08/26/21 11:37 Resp 16 08/26/21 08:00 BP 137/81 08/26/21 08:00 Pulse Ox 95 08/26/21 08:00 Intake & Output 08/25/21 08/26/21 08/26/21 18:59 06:59 18:59 Intake Total 600 Balance 600 Intake: Oral 600 Other: Voiding Method Toilet Toilet Toilet Urinal Urinal Urinal # Voids 2 3 - Exam General: Alert and oriented 3, Sitting up at side of bed, NAD. Vitals reviewed Eyes: PERRL, EOMI, conjunctiva normal HENT: normocephalic, mucus membranes moist Neck: supple, no JVD Lungs: normal respiratory effort. Clear to auscultation, diminished CV: Regular rate and rhythm, no murmur. Peripheral pulses 2+ Abdomen: soft, nondistended, no organomegaly, +BS Skin: warm and dry. Neuro: No focal deficits - Labs CBC & Chem 7: 08/25/21 07:23 08/25/21 07:23 Labs: Abnormal Lab Results - Last 24 Hours (Table) 08/25/21 08/25/21 08/25/21 Range/Units 13:07 17:20 21:22 POC Glucose (mg/dL) 135 H 163 H 119 H (75-99) mg/dL 08/26/21 Range/Units 07:29 POC Glucose (mg/dL) 108 H (75-99) mg/dL Microbiology - Last 24 Hours (Table) 08/21/21 18:30 Blood Culture - Preliminary Blood No Growth after 96 hours 08/21/21 18:30 Blood Culture - Preliminary Blood No Growth after 96 hours 08/24/21 12:58 Gram Stain - Preliminary Pleural Fluid Body Fluid Culture - Preliminary 08/23/21 12:54 Gram Stain - Final Sputum Sputum Culture - Final Assessment and Plan Assessment: Sepsis secondary to community-acquired pneumonia Right parapneumonic effusion, suspected loculated empyema, status post right thoracentesis,650ml turbid. Chest pain, suspect related to the above, subsided New onset paroxysmal atrial fibrillation with RVR, converted to sinus rhythm Acute hypoxic respiratory failure secondary to all the above Gastroesophageal reflux disease COPD, stable Ongoing nicotine dependence Hypertension History of AAA with stenting 2015 Anxiety Plan: Continue on current medication regime ,monitoring and symptomatic treatment. Maintain on oral antiarrhythmics. Anticoagulation/Eliquis on hold for upcoming pigtail catheter placement per interventional radiology. CTS consulted regarding loculated effusion, possible alteplase. Pleural fluid cultures, cytology pending. Continue aggressive pulmonary toileting ,nebulized bronchodilators, IV steroids, Rocephin, Zithromax, incentive spirometer reinforced. The impression and plan of care has been dictated as directed. : I performed a history and examination of this patient, discussed the same with the dictator. I agree with the dictator's note ,documented as a scribe. Any additional findings or plans will be noted.
[2021-08-26 12:29] LABS: Glucose,Whole Blood 121 mg/dL (75-99)
--- NOTE | 2021-08-26 13:13 | P.PN ---
Subjective Progress Note Date: 08/26/21 71-year-old male patient presented to the hospital because of chest pain. He was also to bring of shortness of breath a few days duration. The patient presented to the emergency department yesterday. The patient had developed a right-sided chest wall pain. Upon arrival to the ED, he was quite anxious and he was pointing out to the right side of the chest that was quite painful and the pain was quite extensive at that point. No trauma. No chills. No fever. The patient was seen in the emergency department and the patient was found to have no fever. Hemodynamically stable, pulse ox was 94% on room in oxygen. Chest x-ray was done and a chest x-ray showed a consolidation in the right lower lobe and following that the patient was given a CTA that showed no evidence of any pulmonary embolism. There was a small right-sided pleural effusion. There was ill-defined the right lung base pulmonary infiltrates suspicious for an underlying pneumonia. Further blood work showed a white cell count of 14 with a hemoglobin of 14.5. D-dimer was at 4.15 and a normal correlation profile was noted. BUN was 22 with a creatinine of 0.6. Electrodes were normal. Troponins were negative. Pro-calcitonin level was 0.03 and the COVID 19 testing was negative. The patient was started on accommodation Rocephin and Zithromax. The patient was also started on IV Solu Medrol. The patient was also seen by cardiology. He is known to have hypertension, and he also is an abdominal aortic aneurysm receiving endovascular stent grafting back in [address] [facility]. He has also history of mild asthma, not receiving any maintenance treatment for now. The patient is seen today 08/23/2021 in follow-up on the regular medical floor. He's been up ambulating in his room. Awake and alert in no acute distress. He is maintaining good O2 saturations in the mid 90s on 2 L/m per nasal cannula. He's been afebrile. Hemodynamically stable. He denies any worsening chest pain. No worsening shortness of breath. Blood cultures reveal no growth. Sodium 141. Potassium 4.6. Creatinine 0.7. Chest x-ray reveals increasing opacity in the right lung. He is continued on IV Solu-Medrol, bronchodilators, antibiotics in the form of ceftriaxone. NicoDerm patch is in place. 0.9 normal saline at KVO. The patient is seen today 08/26/2017 in follow-up on the regular medical floor. He remains awake and alert in no acute distress. Maintaining O2 saturation in the mid 90s on 2 L/m per nasal cannula. Afebrile. Hemodynamically stable. Still with some shortness of breath with conversation. Shortness of breath with minimal exertion. Congested cough. He did undergo a right-sided thoracentesis on 08/24/2021. Fluid analysis revealed a exudate. Protein 3.5. LDH greater than 2500. 7. Cultures are pending. Cytology pending. Sputum culture revealed no growth. Blood cultures reveal no growth. Blood sugar 121. He did receive Eliquis this morning. He remains on IV Solu-Medrol, bronchodilators, antibiotics in the form of azithromycin. NicoDerm patch is in place. Objective - Vital Signs Vital signs: Vital Signs Temp 97.8 F 08/26/21 08:00 Pulse 92 08/26/21 11:49 Resp 16 08/26/21 08:00 BP 137/81 08/26/21 08:00 Pulse Ox 95 08/26/21 08:00 Intake & Output 08/25/21 08/26/21 08/26/21 18:59 06:59 18:59 Intake Total 600 Balance 600 Intake: Oral 600 Other: Voiding Method Toilet Toilet Toilet Urinal Urinal Urinal # Voids 2 3 - Exam GENERAL: Well-developed very pleasant 71-year-old male patient, in no acute distress. currently on 2 L of oxygen per nasal cannula Head exam was generally normal. There was no scleral icterus or corneal arcus. Mucous membranes were moist. HEENT: Head is normocephalic. Pupils are equal, round. Sclerae anicteric. Mucous membranes of the mouth are moist. Neck supple. No JVD or thyromegaly LUNGS: Respirations even and unlabored. Lungs with decreased air exchange and expiratory wheezing noted. Diminished in the right lung base HEART: Regular rate and rhythm. S1 and S2 heard. ABDOMEN: Soft. Nondistended. Nontender. EXTREMITIES: Normal range of motion. No clubbing or cyanosis. Peripheral pulses intact. No lower extremity edema Neurologically, the patient is awake and alert and the patient does not have any focal neurological deficit. Cranial nerves are essentially intact. Examination of the skin revealed no evidence of significant rashes, suspicious appearing nevi or other concerning lesions. - Labs CBC & Chem 7: 08/25/21 07:23 08/25/21 07:23 Labs: Abnormal Lab Results - Last 24 Hours (Table) 08/25/21 08/25/21 08/25/21 Range/Units 13:07 17:20 21:22 POC Glucose (mg/dL) 135 H 163 H 119 H (75-99) mg/dL 08/26/21 08/26/21 Range/Units 07:29 12:28 POC Glucose (mg/dL) 108 H 121 H (75-99) mg/dL Microbiology - Last 24 Hours (Table) 08/24/21 12:58 Gram Stain - Preliminary Pleural Fluid Body Fluid Culture - Preliminary 08/21/21 18:30 Blood Culture - Preliminary Blood No Growth after 96 hours 08/21/21 18:30 Blood Culture - Preliminary Blood No Growth after 96 hours 08/23/21 12:54 Gram Stain - Final Sputum Sputum Culture - Final Assessment and Plan Assessment: 1 right lower lobe pneumonia, likely bacterial, likely community-acquired an acute in nature and the patient developed a small right-sided parapneumonic effusion. Increasing in size on today's chest x-ray. Pro-calcitonin level has been negative. There is another patchy area of subpleural consolidation in the right lower lobe which could be potentially an area of pneumonia. Malignancy is felt to be less likely. Pulmonary embolism is also felt to be less likely at this point in time. Thoracentesis performed and generous 2021 with fluid analysis is exudative in nature with a protein of 3.5 and LDH greater than 2500. Glucose 7. Cytology pending. Cultures pending. Plan will be for pigtail catheter insertion tomorrow as the patient received Eliquis today. May require alteplase infusions. 2 right-sided chest wall pain, limited pleurisy secondary to above 3 mild leukocytosis with a white cell count of 14 4 acute hypoxic respiratory failure currently on 2 L about 2 by nasal cannula 5 Abdominal aortic aneurysm post-endovascular stent grafting 6 hypertension 7 history of peptic ulcer disease 8 acid reflux 9 history of scoliosis of the spine. 10 COPD , maintained 11 smoker, 50 py 12 Completed COVID 19 vaccination times 3 Plan The patient was seen and evaluated Currently stable and on 2 L nasal cannula Pleural fluid analysis positive for exudate Cytology pending, cultures pending Currently on azithromycin IR consult for pigtail catheter placement Cardiothoracic consult for possible alteplase infusion Continue the current treatment plan We will continue to follow I, the cosigning physician, performed a history & physical examination of the pa tient. Lungs sounds bilateral end expiratory wheeze, diminished in the right lung base. Maintaining good O2 saturations in the 90s on 2 L/m per nasal cannula. I discussed the assessment and plan of care with my nurse practitioner, Madie Parish. I attest to the above note as dictated by her.
--- NOTE | 2021-08-26 15:12 | P.GSCN ---
History of Present Illness Consult date: 08/26/21 Reason for Consult: Loculated right pleural effusion, possible alteplase/dornase instillation per pigtail catheter Requesting physician: Atif Mills History of present illness: This is a 71-year-old gentleman who follows on an outpatient basis with Dr. Cristian Lao for his primary care. 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 On 08/21/2021 he presented to the emergency department here at [facility] due to some complaints of acute onset of right-sided chest pain associated with shortness of breath, and a chronic cough with yellow sputum. The patient denies any recent fever, chills, nausea, vomiting, hematemesis, hemoptysis, or recent trauma. He also reports that he has double vaccinated and blistered against COVID-19. Initial laboratory results showed a WBC count of 14.0, hemoglobin 14.5, platelets 407, d-dimer 4.15, plasma lactic acid venous 3.2, sodium 138, potassium 3.9, BUN 22, creatinine 0.65, negative serial troponins, proBNP 145 and Coronavirus PCR showe d not detected. A chest x-ray was completed which showed consolidation in the right lower lobe. Due to his elevated d-dimer a CTA of his chest was completed which was negative for pulmonary embolism, demonstrated a small right-sided pleural effusion with 2 ill-defined right lung base pulmonary infiltrates and coronary calcifications. Subsequently pulmonary medicine was consulted, the patient was started on IV antibiotics, and is currently on azithromycin 500 mg IV piggyback every 24 hours. The patient was also started on Solu-Medrol 60 mg IV every 8 hours. On 08/24/2021 the patient underwent a right-sided thoracentesis with 650 mL of turbid colored fluid drained without difficulty by Dr. Blount. Cytology results are still pending. On 08/22/2021 a 2-D echocardiogram was completed which demonstrated an overall left ventricular systolic function to be normal with an ejection fraction between 55 and 60%, a trileaflet aortic valve with mild aortic valve sclerosis, no evidence of aortic regurgitation, no evidence of aortic stenosis, trace to mild mitral valve regurgitation and mild tricuspid valve regurgitation. Subsequently, due his persistent right sided pleural effusion felt to be loculated a consult was placed to interventional radiology for placement of a right-sided pigtail catheter and for cardiothoracic surgery for possible alteplase/dornase pleural instillation once the pigtail catheter has been placed. Review of Systems A 14 point review of systems was completed and was negative except as mentioned in HPI. Past Medical History Past Medical History: Asthma, COPD, GERD/Reflux, Hypertension Additional Past Medical History / Comment(s): hx of gastric ulcers, abdominal aortic Aneurysm with stent (2016), scoliosis, blood clot right retina., umbilical hernia. History of Any Multi-Drug Resistant Organisms: None Reported Past Surgical History: Cholecystectomy, Hernia Repair, Joint Replacement Additional Past Surgical History / Comment(s): right total shoulder, left shoulder surgery., umbilical hernia., colonoscopies, the patient reports that he has a history of stent placement to a abdominal aortic aneurysm in 2013. Past Anesthesia/Blood Transfusion Reactions: No Reported Reaction Past Psychological History: Anxiety Smoking Status: Current every day smoker Past Alcohol Use History: None Reported Additional Past Alcohol Use History / Comment(s): 1ppd , started smoking age 16. Past Drug Use History: None Reported - Past Family History Mother Family Medical History: No Reported History Medications and Allergies Home Medications Medication Instructions Recorded Confirmed Type Glucosamine/Chondr Buckner A Sod [Osteo 1 tab PO W/SUPPER 07/03/18 08/21/21 History Bi-Flex Caplet] [place]-3 Fatty Acids/Fish Oil [Fish 1 cap PO W/SUPPER 07/03/18 08/21/21 History Oil 1,000 mg Softgel] Escitalopram [Lexapro] 5 mg PO HS 08/11/19 08/21/21 History Vit C/E/Zn/Coppr/Lutein/Zeaxan 2 tab PO W/SUPPER 08/11/19 08/21/21 History [Preservision Areds 2 Softgel] lisinopriL 30 mg PO HS 08/11/19 08/21/21 History Albuterol Inhaler [Ventolin Hfa 2 puff INHALATION RT-QID PRN 08/21/21 08/21/21 History Inhaler] Cholecalciferol [Vitamin D3 (25 50 mcg PO W/SUPPER 08/21/21 08/21/21 History Mcg = 1000 Iu)] Hydrocortisone Cream 1 applic TOPICAL BID PRN 08/21/21 08/21/21 History [Hydrocortisone 2.5% Cream] Multivit-Min/FA/Lycopen/Lutein 1 tab PO W/SUPPER 08/21/21 08/21/21 History [Centrum Silver Men Tablet] Nystatin 100,000 Unit/gm Oint 1 applic TOPICAL BID PRN 08/21/21 08/21/21 History [Mycostatin Oint] Nystatin 100,000 Unit/gm Powd 1 applic TOPICAL BID PRN 08/21/21 08/21/21 History [Mycostatin Powder] Vitamin E 400 unit PO W/SUPPER 08/21/21 08/21/21 History Apixaban [Eliquis] 5 mg PO BID #60 tab 08/25/21 Rx Verapamil Sr [Isoptin Sr] 120 mg PO DAILY #90 tablet 08/25/21 Rx Allergies Allergy/AdvReac Type Severity Reaction Status Date / Time Penicillins AdvReac Rapid Verified 08/21/21 19:00 Heart Rate Surgical - Exam Vital Signs Temp Pulse Resp BP Pulse Ox 98 F 103 H 26 H 187/104 94 L 08/21/21 18:17 08/21/21 18:17 08/21/21 18:17 08/21/21 18:17 08/21/21 18:17 - General well developed, well nourished, no distress, no pain - Eyes PERRL, normal ocular movement, no pale, no icteric - ENT normal pinna, normal nares, normal mucosa, no congestion, decreased hearing (To his right ear), dentures (Upper plate) - Neck Neck is supple, no lymphadenopathy. no masses, no bruits, trachea midline, no venous distension - Cardiovascular Regular rhythm and rate. S1 and S2 present, negative for S3 or gallop. Positive systolic murmur heard best to his right sternal border 2/6. - Abdomen Abdomen: soft, non tender, bowel sounds (Present all 4 abdominal quadrants.), no organomegaly, no guarding, no rigid, no distended - Integumentary no rash, no growths, no abnormal pigmentation - Neurologic No focal deficits. normal coordination, normal sensation - Musculoskeletal normal gait, normal posture - Psychiatric oriented to time, oriented to person, oriented to place, speech is normal, memory intact Results - Labs 08/25/21 07:23 08/25/21 07:23 Abnormal Lab Results - Last 24 Hours (Table) 08/25/21 08/25/21 08/25/21 Range/Units 13:07 17:20 21:22 POC Glucose (mg/dL) 135 H 163 H 119 H (75-99) mg/dL 08/26/21 08/26/21 Range/Units 07:29 12:28 POC Glucose (mg/dL) 108 H 121 H (75-99) mg/dL Microbiology - Last 24 Hours (Table) 08/24/21 12:58 Gram Stain - Preliminary Pleural Fluid Body Fluid Culture - Preliminary 08/21/21 18:30 Blood Culture - Preliminary Blood No Growth after 96 hours 08/21/21 18:30 Blood Culture - Preliminary Blood No Growth after 96 hours 08/23/21 12:54 Gram Stain - Final Sputum Sputum Culture - Final - Imaging Chest x-ray: report reviewed, image reviewed CT scan - chest: report reviewed, image reviewed Assessment and Plan Assessment: 1. Right pleural effusion, loculated 2. Right lower lobe pneumonia 3. Acute hypoxic respiratory failure currently on 2 L nasal cannula 4. History of abdominal aortic aneurysm, post endovascular stent grafting in 2013 5. History of hypertension 6. History of asthma 7. COPD 8. Chronic ongoing tobacco dependence 9. GERD 10. Completed vaccination series with booster for COVID-19 Plan: The patient was seen and examined at his bedside on the sixth floor cardiac observation unit. His chart and diagnostics were reviewed. This case was discussed in detail with Dr. Hira Haq from cardiothoracic surgery. Interventional radiology consult is pending for right-sided pigtail catheter placement. Once the pigtail catheter has been placed we will initiate alteplase/dornase pleural instillation. Continue to encourage use of his incentive spirometry 10 times every hour while awake. Risk modification including the importance of smoking cessation has been discussed with the patient. Medical management other comorbidities per primary care service. Antibiotics and steroid management per pulmonary/critical care medicine. We will continue to monitor his daily chest x-rays. More recommendations to follow based on patient's clinical course. Thank you Dr. Mills for this consult and we look forward to working with you in the care of this patient. Time with Patient: Greater than 30
[2021-08-26] MEDS: AZITHROMYCIN 500 MG in SODIUM CHLORIDE 0.9% 250 ML IVPB SCH (16:25)
[2021-08-26 17:18] LABS: Glucose,Whole Blood 167 mg/dL (75-99)
[2021-08-26 20:34] LABS: Glucose,Whole Blood 134 mg/dL (75-99)
[2021-08-26] MEDS: ESCITALOPRAM 5 MG TAB PO SCH (22:32)
[2021-08-26] MEDS: lisinopriL 10 MG TAB PO SCH (22:32)
[2021-08-26] MEDS: SODIUM CHLORIDE 0.9% 1,000 ML IV SCH (23:40)
[2021-08-27] MEDS: methylPREDNISolone SOD SUCCI 125 MG/2 ML VIAL IV SCH ×3 (00:55→16:12)
[2021-08-27 07:15] LABS: Glucose,Whole Blood 109 mg/dL (75-99)
[2021-08-27] MEDS: INSULIN ASPART (NovoLOG) 100 UNIT/ML VIAL SQ SCH ×4 (07:22→20:44)
[2021-08-27] MEDS: IPRATROPIUM-ALBUTEROL 3 ML NEB INHALATION SCH ×4 (08:42→21:09)
[2021-08-27 09:36] LABS: Basophils # (A) 0.02 X 10*3/uL (0.00-0.10); Basophils % (A) 0.2 %; Eosinophils # (A) 0 X 10*3/uL (0.04-0.35); Eosinophils % (A) 0 %; HCT 35.7 % (39.6-50.0); HGB 11.6 g/dL (13.0-17.0); Lymphocytes # (A) 0.41 X 10*3/uL (0.90-5.00); Lymphocytes % (A) 3.5 %; MCH 30.7 pg (27.0-32.0); MCHC 32.5 g/dL (32.0-37.0); MCV 94.4 fL (80.0-97.0); Mean Platelet Volume 10.3 fL (9.5-12.2); Monocytes % (A) 7.7 %; Neutrophils # (A) 10.18 X 10*3/uL (1.80-7.70); Neutrophils % (A) 87.3 %; Platelet Count 349 X 10*3/uL (140-440); RBC 3.78 X 10*6/uL (4.40-5.60); RDW 12.7 % (11.5-14.5); WBC 11.66 X 10*3/uL (4.50-10.00)
[2021-08-27] MEDS: VERAPAMIL SR 120 MG TABLET.ER PO SCH (10:11)
[2021-08-27] MEDS: NICOTINE 21MG/24HR PATCH TRANSDERM SCH (10:11)
[2021-08-27] MEDS: PANTOPRAZOLE 40 MG/10 ML VIAL IVP SCH (10:11)
--- NOTE | 2021-08-27 10:23 | CT ---
EXAMINATION TYPE: CT chest tube insertion DATE OF EXAM: 08/27/2021 COMPARISON: 08/24/2021 HISTORY: rt chest tube insertion, post rt thoracentesis CT DLP: 309 mGycm The procedure is discussed with the patient, the risks, complications, benefits and alternatives, wer e discussed and any questions were answered. Informed consent was obtained. The patient is placed p adam on the CT table, prepped and draped in the usual sterile fashion. Utilizing a 22-gauge Chiba needle access into right pleural space was achieved with 2 passes of L1 ov er the guidewire. There was conversion to a 1035 system and serial dilation 8.5 [place] with placement 8.5 drainage catheter. Sample obtained and sent to pathology for analysis. All elements of maximal barrier and sterile technique were utilized. The patient remained stable thr oughout the procedure with no immediate postprocedural complication. IMPRESSION: 1. Successful CT guided right chest tube insertion.
[2021-08-27 11:36] LABS: African American GFR (CKD) 109.1 (60.0-200.0); Anion Gap 8.9 mmol/L (10.00-18.00); BUN/Creat Ratio 35.46 Ratio (12.00-20.00); Blood Urea Nitrogen 24.5 mg/dL (9.0-27.0); Carbon Dioxide 23.3 mmol/L (20.0-27.5); Non-African American GFR(CKD) 94.1 (60.0-200.0); Potassium 4.6 mmol/L (3.5-5.5)
[2021-08-27 12:21] LABS: Glucose,Whole Blood 242 mg/dL (75-99)
--- NOTE | 2021-08-27 13:10 | P.PN ---
Subjective Progress Note Date: 08/27/21 Principal diagnosis: Pneumonia On 08/24/2021 patient in follow-up on medical surgical floor, patient is on 2 L of oxygen his pulse ox of 92%, vital signs have been stable, his been afebrile, today's x-ray has been reviewed, and follow-up CT chest without contrast showing right-sided consolidation with increasing pleural effusion moderate to large in size. Based on the findings of the computed tomography scan of the chest right- sided thoracentesis was done at the bedside by Dr. Blount, please refer to the procedure note, and 650 mL of turbid cloudy fluid was withdrawn and sent for analysis. Patient tolerated the procedure very well, postprocedure chest x-ray showed no pneumothorax, and interval reduction in the amount of pleural fluid with persistent consolidation and small amount of fluid. Patient remains on IV Solu-Medrol 60 mg every 8 hours, remains on Rocephin, Zithromax Has dropped off, but we will add back on. On 08/27/2021 patient seen in follow-up on medical surgical floor, he is sitting up on the side of the bed, breathing comfortably, does not appear to be in any acute distress, he is on room air, his pulse ox is 95%. Patient denies any chest discomfort, a lot of signs have been stable, his been afebrile, he continues on antibiotics for pneumonia with empyema, she status post thoracentesis, with removal of 650 mL of pleural fluid and pleural fluid cultures have been negative thus far. Gram stain showing no organisms. All of the pleural fluid analysis was consistent with empyema. Following his right thoracentesis patient still had lochia pleural effusion on the right side and patient was referred to interventional radiology for placement of right-sided pigtail chest tube catheter which will be done today, CT surgery was asked to manage the infusion of TPA, and chest tube. Otherwise no acute events overnight. Objective - Vital Signs Vital signs: Vital Signs Temp 98.1 F 08/27/21 07:00 Pulse 78 08/27/21 12:38 Resp 14 08/27/21 09:30 BP 148/80 08/27/21 09:30 Pulse Ox 95 08/27/21 09:30 Intake & Output 08/26/21 08/27/21 08/27/21 18:59 06:59 18:59 Other: Voiding Method Toilet Toilet Urinal Urinal # Voids 3 2 - Exam GENERAL EXAM: Alert, very pleasant, 71-year-old white male, in 2 L of oxygen and the pulse ox of 92% comfortable in no apparent distress. HEAD: Normocephalic/atraumatic. EYES: Normal reaction of pupils, equal size. Conjunctiva pink, sclera white. NOSE: Clear with pink turbinates. THROAT: No erythema or exudates. NECK: No masses, no JVD, no thyroid enlargement, no adenopathy. CHEST: No chest wall deformity. Symmetrical expansion. LUNGS: diminished breath sounds at the right base with limited crackles CVS: Regular rate and rhythm, normal S1 and S2, no gallops, no murmurs, no rubs ABDOMEN: Soft, nontender. No hepatosplenomegaly, normal bowel sounds, no guarding or rigidity. EXTREMITIES: No clubbing, no edema, no cyanosis, 2+ pulses and upper and lower extremities. MUSCULOSKELETAL: Muscle strength and tone normal. SPINE: No scoliosis or deformity SKIN: No rashes CENTRAL NERVOUS SYSTEM: Alert and oriented -3. No focal deficits, tone is normal in all 4 extremities. PSYCHIATRIC: Alert and oriented -3. Appropriate affect. Intact judgment and i nsight. - Labs CBC & Chem 7: 08/27/21 06:30 08/27/21 06:30 Labs: Abnormal Lab Results - Last 24 Hours (Table) 08/26/21 08/26/21 08/27/21 Range/Units 17:17 20:33 06:30 WBC (4.50-10.00) X 10*3/uL RBC (4.40-5.60) X 10*6/uL Hgb (13.0-17.0) g/dL Hct (39.6-50.0) % Immature Gran # (0.00-0.04) X 10*3/uL Neutrophils # (1.80-7.70) X 10*3/uL Lymphocytes # (0.90-5.00) X 10*3/uL Eosinophils # (0.04-0.35) X 10*3/uL Anion Gap 8.90 L (10.00-18.00) mmol/L BUN/Creatinine Ratio 35.46 H (12.00-20.00) Ratio Glucose 120 H (70-110) mg/dL POC Glucose (mg/dL) 167 H 134 H (75-99) mg/dL 08/27/21 08/27/21 08/27/21 Range/Units 06:30 07:14 12:20 WBC 11.66 H (4.50-10.00) X 10*3/uL RBC 3.78 L (4.40-5.60) X 10*6/uL Hgb 11.6 L (13.0-17.0) g/dL Hct 35.7 L (39.6-50.0) % Immature Gran # 0.15 H (0.00-0.04) X 10*3/uL Neutrophils # 10.18 H (1.80-7.70) X 10*3/uL Lymphocytes # 0.41 L (0.90-5.00) X 10*3/uL Eosinophils # 0 L (0.04-0.35) X 10*3/uL Anion Gap (10.00-18.00) mmol/L BUN/Creatinine Ratio (12.00-20.00) Ratio Glucose (70-110) mg/dL POC Glucose (mg/dL) 109 H 242 H (75-99) mg/dL Microbiology - Last 24 Hours (Table) 08/24/21 12:58 Gram Stain - Preliminary Pleural Fluid Body Fluid Culture - Preliminary 08/21/21 18:30 Blood Culture - Preliminary Blood No Growth after 120 hours 08/21/21 18:30 Blood Culture - Preliminary Blood No Growth after 120 hours 08/24/21 12:58 Anaerobic Culture - Preliminary Pleural Fluid Assessment and Plan Plan: Assessment: #1. Right lower lobe pneumonia, likely bacterial, likely community-acquired an acute in nature and the patient developed a small right-sided parapneumonic effusion. Increasing in size on today's chest x-ray. Pro-calcitonin level has been negative. There is another patchy area of subpleural consolidation in the right lower lobe which could be potentially an area of pneumonia. Malignancy is felt to be less likely. Pulmonary embolism is also felt to be less likely at this point in time. Patient and right-sided thoracentesis today on 08/24/2021 with removal of 650 mL of turbid cloudy pleural fluid which was sent for analysis, and the pleural fluid analysis was consistent with empyema. Pleural fluid cultures have shown no organisms. Patient is status post right-sided pigtail chest tube catheter placement by interventional radiology and CT surgery is following and managing the chest tube and dornase infusions #2. Right-sided chest wall pain, limited pleurisy secondary to above #3. Mild leukocytosis with a white cell count of 14 #4. Acute hypoxic respiratory failure currently on 2 L about 2 by nasal cannula #5. Abdominal aortic aneurysm post-endovascular stent grafting #6. Hypertension #7. History of peptic ulcer disease #8. GERD/reflux #9. History of scoliosis of the spine. #10. COPD , maintained #11. Smoker, 50 py #12. Completed COVID 19 vaccination times 3 Plan: Patient is going for placement of right-sided pigtail chest tube catheter CT surgery has been consulted for management of the chest tube, and infusion of dornase Continue same antibiotics Follow-up chest x-ray tomorrow Clinically stable, breathing comfortably, Continue to follow his clinical course I performed a history & physical examination of the patient and discussed their management with my nurse practitioner, Caroline Knox. I reviewed the nurse practitioner's note and agree with the documented findings and plan of care. Lung sounds are positive for dim breath sounds throughout the lung robert. The findings and the impression was discussed with the patient. I attest to the documentation by the nurse practitioner. Time with Patient: Less than 30
--- NOTE | 2021-08-27 13:12 | P.PN ---
Subjective Progress Note Date: 08/27/21 Principal diagnosis: Right sided loculated pleural effusion, right lower lobe pneumonia, acute hypoxic respiratory failure. Previous medical history of abdominal aortic aneurysm status post endovascular stent grafting in 2013, hypertension, asthma, chronic ongoing tobacco dependence with COPD, GERD, vaccinated and boostered against COVID-19 The patient was seen and examined this morning sitting up in bed on 6 [address] in no acute distress. He returned from having right-sided pigtail catheter placed by interventional radiology, a tail catheter connected to atrium with continuous wall suction, no air leak present, 500 mL serosanguineous drainage present. Patient denies any pain or shortness of breath, currently on room air. No other new concerns Objective - Vital Signs Vital signs: Vital Signs Temp 98.1 F 08/27/21 07:00 Pulse 78 08/27/21 12:38 Resp 14 08/27/21 09:30 BP 148/80 08/27/21 09:30 Pulse Ox 95 08/27/21 09:30 Intake & Output 08/26/21 08/27/21 08/27/21 18:59 06:59 18:59 Other: Voiding Method Toilet Toilet Urinal Urinal # Voids 3 2 - Exam CONSTITUTIONAL: Appears comfortable, cooperative, no acute distress RESPIRATORY: Lungs sounds diminished bilaterally, right greater than left. Respirations even, nonlabored. Currently on room air with oxygen saturation 95%. Able to achieve 1500 mL on incentive spirometry. Strong cough. CARDIOVASCULAR: S1, S2 present. Regular rate and rhythm. Palpable peripheral pulses bilaterally. No edema present. GASTROINTESTINAL: Abdomen soft, nontender, nondistended. Active bowel sounds present 4 quadrants. Tolerating diet. GENITOURINARY: Continues to void clear, yellow urine INTEGUMENTARY: Skin is warm and dry with evidence of good perfusion. NEUROLOGIC: Cranial nerves II through XII intact MUSKULOSKELETAL: Able to move all extremities, strength equal bilaterally, gait normal PSYCHIATRIC: Alert and oriented to person place and time, appropriate affect, intact judgment and insight INVASIVE LINES AND TUBES: Right-sided pigtail catheter present, connected to wall suction, no air leak present. 500 mL serosanguineous drainage present. - Allied health notes Allied health notes reviewed: nursing - Labs CBC & Chem 7: 08/27/21 06:30 08/27/21 06:30 Labs: Abnormal Lab Results - Last 24 Hours (Table) 08/26/21 08/26/21 08/27/21 Range/Units 17:17 20:33 06:30 WBC (4.50-10.00) X 10*3/uL RBC (4.40-5.60) X 10*6/uL Hgb (13.0-17.0) g/dL Hct (39.6-50.0) % Immature Gran # (0.00-0.04) X 10*3/uL Neutrophils # (1.80-7.70) X 10*3/uL Lymphocytes # (0.90-5.00) X 10*3/uL Eosinophils # (0.04-0.35) X 10*3/uL Anion Gap 8.90 L (10.00-18.00) mmol/L BUN/Creatinine Ratio 35.46 H (12.00-20.00) Ratio Glucose 120 H (70-110) mg/dL POC Glucose (mg/dL) 167 H 134 H (75-99) mg/dL 08/27/21 08/27/21 08/27/21 Range/Units 06:30 07:14 12:20 WBC 11.66 H (4.50-10.00) X 10*3/uL RBC 3.78 L (4.40-5.60) X 10*6/uL Hgb 11.6 L (13.0-17.0) g/dL Hct 35.7 L (39.6-50.0) % Immature Gran # 0.15 H (0.00-0.04) X 10*3/uL Neutrophils # 10.18 H (1.80-7.70) X 10*3/uL Lymphocytes # 0.41 L (0.90-5.00) X 10*3/uL Eosinophils # 0 L (0.04-0.35) X 10*3/uL Anion Gap (10.00-18.00) mmol/L BUN/Creatinine Ratio (12.00-20.00) Ratio Glucose (70-110) mg/dL POC Glucose (mg/dL) 109 H 242 H (75-99) mg/dL Microbiology - Last 24 Hours (Table) 08/24/21 12:58 Gram Stain - Preliminary Pleural Fluid Body Fluid Culture - Preliminary 08/21/21 18:30 Blood Culture - Preliminary Blood No Growth after 120 hours 08/21/21 18:30 Blood Culture - Preliminary Blood No Growth after 120 hours 08/24/21 12:58 Anaerobic Culture - Preliminary Pleural Fluid - Imaging and Cardiology CT scan - chest: report reviewed, image reviewed Assessment and Plan Assessment: 1. Right sided loculated pleural effusion, right lower lobe pneumonia, status post pigtail catheter placement by interventional radiology 2. Acute hypoxic respiratory failure present on admission, currently on room air 3. Chronic ongoing tobacco dependence with COPD 4. History of abdominal aortic aneurysm status post endovascular stent grafting in 2013 5. Hypertension 6. Asthma 7. GERD 8. Vaccinated and boostered against COVID-19 Plan: 1. Will instill first dose of alteplase/dornase into right-sided pigtail catheter, monitor drainage 2. Will monitor daily x-rays 3. Encourage incentive spirometry use 4. Increase activity, ambulate as tolerated 5. Smoking cessation encouraged 6. Antibiotics, steroids per pulmonology 7. Medical management of other comorbidities per primary care service Time with Patient: Greater than 30
[2021-08-27] MEDS ORDERED: ALTEPLASE 10 MG in SODIUM CHLORIDE 0.9% 50 ML IRRIGATION ONE (13:30)
[2021-08-27] MEDS ORDERED: DORNASE ALFA 5 MG in SODIUM CHLORIDE 0.9% 50 ML IRRIGATION ONE (13:30)
[2021-08-27 15:16] VITALS: BMI 21.6
--- NOTE | 2021-08-27 16:09 | P.PN ---
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 He complains that he has been having R sided chest pain and tightness which has been sharp and constant in nature. He denies p alpitations, sweats, fever, chills. He has been experiencing cough as well. On presentation pt tachycardic, tachypneic, WBC 14k, d-dimer 4.15, procalcitonin negative, trop negative. CTA performed and showing R sided consolidation and pleural effusion. 08/25/2021 sitting up at side of bed, eating breakfast, reporting less shortness of breath. He underwent a right thoracentesis yesterday with 650 MLS/turbid appearance ,drained. Tolerated procedure well. Maintained on IV steroids, ceftriaxone and azithromycin. Denies cough. Reports no further right-sided chest pain. Chest x-ray reporting persistent confluent density at the right lung base, prominent lung volumes suggestive of underlying COPD, underlying emphysema, difficult to exclude associated effusion. Maintaining O2 sats in the 90s on 2 L nasal cannula. Afebrile, WBC trending down, 16.6. 08/26/2021 thoracentesis fluid, exudative, with suspected loculated empyema. Eliquis placed on hold for her upcoming pigtail catheter placement via interventional radiology as recommended per pulmonary. Cultures/cytology pending Sitting up at side of bed, feels well. Maintaining O2 sats in the 90s on room air. Denies any chest pain, palpitations or shortness of breath. Afebrile. 08/27/2021 . Maintain IV antibiotics, nebulized bronchodilators, IV steroids. Pigtail catheter placement with alteplase/dornase installation pending. Denies chest pain, palpitations or shortness of breath. Maintaining O2 sats in the 90s on room air. Objective - Vital Signs Vital signs: Vital Signs Temp 98.2 F 08/27/21 13:46 Pulse 94 08/27/21 13:46 Resp 18 08/27/21 13:46 BP 139/83 08/27/21 13:46 Pulse Ox 93 L 08/27/21 13:46 Intake & Output 08/26/21 08/27/2122 18:59 06:59 18:59 Intake Total 118 Balance 118 Weight 58.967 kg Intake: Oral 118 Other: Voiding Method Toilet Toilet Urinal Urinal # Voids 3 2 - Exam General: Alert and oriented 3, Sitting up at side of bed, NAD. Vitals reviewed Eyes: PERRL, EOMI, conjunctiva normal HENT: normocephalic, mucus membranes moist Neck: supple, no JVD Lungs: normal respiratory effort. diminished with fine right basilar crackles CV: Regular rate and rhythm, no murmur. Peripheral pulses 2+ Abdomen: soft, nondistended, no organomegaly, +BS Skin: warm and dry. Neuro: No focal deficits - Labs CBC & Chem 7: 08/27/21 06:30 08/27/21 06:30 Labs: Abnormal Lab Results - Last 24 Hours (Table) 08/26/21 08/26/21 08/27/21 Range/Units 17:17 20:33 06:30 WBC (4.50-10.00) X 10*3/uL RBC (4.40-5.60) X 10*6/uL Hgb (13.0-17.0) g/dL Hct (39.6-50.0) % Immature Gran # (0.00-0.04) X 10*3/uL Neutrophils # (1.80-7.70) X 10*3/uL Lymphocytes # (0.90-5.00) X 10*3/uL Eosinophils # (0.04-0.35) X 10*3/uL Anion Gap 8.90 L (10.00-18.00) mmol/L BUN/Creatinine Ratio 35.46 H (12.00-20.00) Ratio Glucose 120 H (70-110) mg/dL POC Glucose (mg/dL) 167 H 134 H (75-99) mg/dL 08/27/21 08/27/21 08/27/21 Range/Units 06:30 07:14 12:20 WBC 11.66 H (4.50-10.00) X 10*3/uL RBC 3.78 L (4.40-5.60) X 10*6/uL Hgb 11.6 L (13.0-17.0) g/dL Hct 35.7 L (39.6-50.0) % Immature Gran # 0.15 H (0.00-0.04) X 10*3/uL Neutrophils # 10.18 H (1.80-7.70) X 10*3/uL Lymphocytes # 0.41 L (0.90-5.00) X 10*3/uL Eosinophils # 0 L (0.04-0.35) X 10*3/uL Anion Gap (10.00-18.00) mmol/L BUN/Creatinine Ratio (12.00-20.00) Ratio Glucose (70-110) mg/dL POC Glucose (mg/dL) 109 H 242 H (75-99) mg/dL Microbiology - Last 24 Hours (Table) 08/24/21 12:58 Gram Stain - Preliminary Pleural Fluid Body Fluid Culture - Preliminary 08/21/21 18:30 Blood Culture - Preliminary Blood No Growth after 120 hours 08/21/21 18:30 Blood Culture - Preliminary Blood No Growth after 120 hours 08/24/21 12:58 Anaerobic Culture - Preliminary Pleural Fluid Assessment and Plan Assessment: Sepsis secondary to community-acquired pneumonia Right parapneumonic effusion, suspected loculated empyema, status post right thoracentesis,650ml turbid. Chest pain, suspect related to the above, subsided New onset paroxysmal atrial fibrillation with RVR, converted to sinus rhythm Acute hypoxic respiratory failure secondary to all the above Gastroesophageal reflux disease COPD, stable Ongoing nicotine dependence Hypertension History of AAA with stenting 2015 Anxiety Plan: Continue on current medication regime ,monitoring and symptomatic treatment. Hold Eliquis for pigtail catheter placement per interventional radiology. CTS re: possible alteplase. Pleural fluid cultures, cytology pending. Continue aggressive pulmonary toileting ,nebulized bronchodilators, IV steroids, antibx.,incentive spirometer reinforced. The impression and plan of care has been dictated as directed. : I performed a history and examination of this patient, discussed the same with the dictator. I agree with the dictator's note ,documented as a scribe. Any additional findings or plans will be noted.
[2021-08-27] MEDS: AZITHROMYCIN 500 MG in SODIUM CHLORIDE 0.9% 250 ML IVPB SCH (16:13)
[2021-08-27 17:12] LABS: Glucose,Whole Blood 123 mg/dL (75-99)
[2021-08-27 17:37] LABS: Appearance,BF Bloody
[2021-08-27 19:53] LABS: Glucose, BF Source Pleural Fluid; Glucose, Body Fluid 85 mg/dL; Total Protein, Body Fluid 2730 mg/dL
[2021-08-27 20:05] LABS: LDH, Body Fluid Source Pleural Fluid
[2021-08-27 20:44] LABS: Glucose,Whole Blood 127 mg/dL (75-99)
[2021-08-27] MEDS: lisinopriL 10 MG TAB PO SCH (20:44)
[2021-08-27] MEDS: ESCITALOPRAM 5 MG TAB PO SCH (20:44)
[2021-08-27] MEDS: SODIUM CHLORIDE 0.9% 1,000 ML IV SCH (23:10)
[2021-08-28] MEDS: methylPREDNISolone SOD SUCCI 125 MG/2 ML VIAL IV SCH ×3 (00:30→18:09)
[2021-08-28 07:45] LABS: Glucose,Whole Blood 106 mg/dL (75-99)
[2021-08-28] MEDS: IPRATROPIUM-ALBUTEROL 3 ML NEB INHALATION SCH ×4 (08:19→19:19)
[2021-08-28] MEDS: INSULIN ASPART (NovoLOG) 100 UNIT/ML VIAL SQ SCH ×4 (08:37→21:38)
[2021-08-28] MEDS: VERAPAMIL SR 120 MG TABLET.ER PO SCH (08:38)
[2021-08-28] MEDS: PANTOPRAZOLE 40 MG/10 ML VIAL IVP SCH (08:42)
[2021-08-28] MEDS: NICOTINE 21MG/24HR PATCH TRANSDERM SCH (08:42)
--- NOTE | 2021-08-28 09:19 | XR ---
EXAMINATION TYPE: XR chest 1V portable DATE OF EXAM: 08/28/2021 COMPARISON: Chest x-ray 08/25/2021 HISTORY: Chest tube, pleural effusion TECHNIQUE: Single frontal view of the chest is obtained. FINDINGS: Right-sided pigtail catheter is present. There is some improvement in aeration as compared to prior exam the right lung base, persistent blunting the costophrenic angle, patchy asymmetry dens ity noted on the right. No evident pneumothorax. Cardiac mediastinal silhouette is stable. Postop rodriguez nges are noted over the right shoulder. IMPRESSION: Improvement in aeration right lung base.
--- NOTE | 2021-08-28 09:39 | P.PN ---
Subjective Progress Note Date: 08/28/21 Principal diagnosis: Right sided loculated pleural effusion, right lower lobe pneumonia, acute hypoxic respiratory failure. Previous medical history of abdominal aortic aneurysm status post endovascular stent grafting in 2013, hypertension, asthma, chronic ongoing tobacco dependence with COPD, GERD, vaccinated and boostered against COVID-19. POD #[address] guided right pigtail chest tube insertion performed by interventional radiology. The patient was seen in follow-up today 08/28/2021 at his bedside on the sixth floor cardiac observation unit. Currently he is is awake, up ambulating in his room, alert and oriented 3 and is in no acute apparent distress. Oxygen saturations are 93% on room air and he is achieving 7147-1314 mL on his incentive spirometry. Right chest pigtail catheter was placed yesterday successfully by interventional radiology. The pigtail catheter is connected to an atrium and to continuous low wall suction at -20 cm H2O. No air leak is present. He received 1 dose of alteplase/dornase yesterday with 2.1 L of thin serosanguineous drainage drained since the tube has been placed. He reports he has been up ambulating in his room. The importance of smoking cessation has been reinforced with the patient and he states that his plan is that he has done with smoking. He remains afebrile the last 24 hours. Objective - Vital Signs Vital signs: Vital Signs Temp 98.0 F 08/28/21 07:41 Pulse 87 08/28/21 07:41 Resp 16 08/28/21 08:55 BP 168/94 08/28/21 07:41 Pulse Ox 93 L 08/28/21 07:41 Intake & Output 08/27/21 08/28/21 08/28/21 18:59 06:59 18:59 Intake Total 236 Output Total 1860 Balance 236 -1860 Weight 58.967 kg Intake: Oral 236 Output: Drainage 0 Right Posterior Chest 1859 Other: Voiding Method Toilet Urinal # Voids 2 - Exam CONSTITUTIONAL: Up ambulating in his room on the sixth floor cardiac stepdown unit. Appears comfortable, cooperative, no acute distress. RESPIRATORY: Lungs sounds diminished bilaterally, right greater than left. Respirations are symmetrical, nonlabored. Currently on room air with oxygen saturation 93%. Able to achieve 5412-8299 mL on his incentive spirometry. Strong cough. CARDIOVASCULAR: S1, S2 present. Regular rate and rhythm. Palpable peripheral pulses bilaterally. No edema present. GASTROINTESTINAL: Abdomen soft, nontender, nondistended. Active bowel sounds present 4 quadrants. Tolerating diet. GENITOURINARY: Continues to void clear, yellow urine. INTEGUMENTARY: Skin is warm and dry with evidence of good perfusion. NEUROLOGIC: Cranial nerves II through XII intact. MUSKULOSKELETAL: Able to move all extremities, strength equal bilaterally, gait normal. PSYCHIATRIC: Alert and oriented to person place and time, appropriate affect, intact judgment and insight INVASIVE LINES AND TUBES: Right-sided pigtail catheter present, connected to wall suction, no air leak present. 2.1 L serosanguineous drainage present. - Allied health notes Allied health notes reviewed: nursing - Labs CBC & Chem 7: 08/27/21 06:30 08/27/21 06:30 Labs: Abnormal Lab Results - Last 24 Hours (Table) 08/27/21 08/27/21 08/27/21 Range/Units 06:30 06:30 12:20 WBC 11.66 H (4.50-10.00) X 10*3/uL RBC 3.78 L (4.40-5.60) X 10*6/uL Hgb 11.6 L (13.0-17.0) g/dL Hct 35.7 L (39.6-50.0) % Immature Gran # 0.15 H (0.00-0.04) X 10*3/uL Neutrophils # 10.18 H (1.80-7.70) X 10*3/uL Lymphocytes # 0.41 L (0.90-5.00) X 10*3/uL Eosinophils # 0 L (0.04-0.35) X 10*3/uL Anion Gap 8.90 L (10.00-18.00) mmol/L BUN/Creatinine Ratio 35.46 H (12.00-20.00) Ratio Glucose 120 H (70-110) mg/dL POC Glucose (mg/dL) 242 H (75-99) mg/dL 08/27/21 08/27/21 08/28/21 Range/Units 17:11 20:43 07:44 WBC (4.50-10.00) X 10*3/uL RBC (4.40-5.60) X 10*6/uL Hgb (13.0-17.0) g/dL Hct (39.6-50.0) % Immature Gran # (0.00-0.04) X 10*3/uL Neutrophils # (1.80-7.70) X 10*3/uL Lymphocytes # (0.90-5.00) X 10*3/uL Eosinophils # (0.04-0.35) X 10*3/uL Anion Gap (10.00-18.00) mmol/L BUN/Creatinine Ratio (12.00-20.00) Ratio Glucose (70-110) mg/dL POC Glucose (mg/dL) 123 H 127 H 106 H (75-99) mg/dL Microbiology - Last 24 Hours (Table) 08/24/21 12:58 Gram Stain - Final Pleural Fluid Body Fluid Culture - Final 08/27/21 09:50 Gram Stain - Preliminary Pleural Fluid Body Fluid Culture - Preliminary 08/21/21 18:30 Blood Culture - Final Blood No Growth after 144 hours 08/21/21 18:30 Blood Culture - Final Blood No Growth after 144 hours 08/27/21 09:25 Anaerobic Culture - Preliminary Pleural Fluid - Imaging and Cardiology Chest x-ray: report reviewed, image reviewed Assessment and Plan Assessment: 1. Right pleural effusion, loculated 2. Right lower lobe pneumonia 3. Acute hypoxic respiratory failure currently on 2 L nasal cannula 4. History of abdominal aortic aneurysm, post endovascular stent grafting in 2013 5. Hypertension 6. Asthma 7. COPD 8. Chronic ongoing tobacco dependence 9. GERD 10. Completed vaccination series with booster for COVID-19 Plan: 1. Will instill a dose of alteplase/dornase into right-sided pigtail catheter which will be his second dose, continue to monitor drainage. 2. Will monitor daily chest x-rays. 3. Encourage incentive spirometry use 10 times every hour while awake. 4. Increase activity, ambulate as tolerated. 5. Importance of risk modification including smoking cessation has been discu ssed and reinforced with the patient. 6. Antibiotics, steroids per pulmonology recommendations. 7. Medical management of other comorbidities per primary care service. 8. More recommendations to follow based on patient's clinical course. Time with Patient: Greater than 30
[2021-08-28] MEDS ORDERED: DORNASE ALFA 5 MG in SODIUM CHLORIDE 0.9% 50 ML IRRIGATION ONE (09:41)
[2021-08-28] MEDS ORDERED: ALTEPLASE 10 MG in SODIUM CHLORIDE 0.9% 50 ML IRRIGATION ONE (09:41)
[2021-08-28 10:26] LABS: African American GFR (CKD) 108.5 (60.0-200.0); Anion Gap 12.2 mmol/L (10.00-18.00); BUN/Creat Ratio 39.14 Ratio (12.00-20.00); Blood Urea Nitrogen 27.4 mg/dL (9.0-27.0); Calcium 9.2 mg/dL (8.7-10.3); Carbon Dioxide 23.8 mmol/L (20.0-27.5); Non-African American GFR(CKD) 93.6 (60.0-200.0); Potassium 4.6 mmol/L (3.5-5.5)
[2021-08-28 11:03] LABS: Glucose,Whole Blood 166 mg/dL (75-99)
--- NOTE | 2021-08-28 13:43 | P.PN ---
Subjective Progress Note Date: 08/28/21 71-year-old male patient presented to the hospital because of chest pain. He was also to bring of shortness of breath a few days duration. The patient presented to the emergency department yesterday. The patient had developed a right-sided chest wall pain. Upon arrival to the ED, he was quite anxious and he was pointing out to the right side of the chest that was quite painful and the pain was quite extensive at that point. No trauma. No chills. No fever. The patient was seen in the emergency department and the patient was found to have no fever. Hemodynamically stable, pulse ox was 94% on room in oxygen. Chest x-ray was done and a chest x-ray showed a consolidation in the right lower lobe and following that the patient was given a CTA that showed no evidence of any pulmonary embolism. There was a small right-sided pleural effusion. There was ill-defined the right lung base pulmonary infiltrates suspicious for an underlying pneumonia. Further blood work showed a white cell count of 14 with a hemoglobin of 14.5. D-dimer was at 4.15 and a normal correlation profile was noted. BUN was 22 with a creatinine of 0.6. Electrodes were normal. Troponins were negative. Pro-calcitonin level was 0.03 and the COVID 19 testing was negative. The patient was started on accommodation Rocephin and Zithromax. The patient was also started on IV Solu Medrol. The patient was also seen by cardiology. He is known to have hypertension, and he also is an abdominal aortic aneurysm receiving endovascular stent grafting back in 2016 at [facility]. He has also history of mild asthma, not receiving any maintenance treatment for now. The patient is seen today 08/23/2021 in follow-up on the regular medical floor. He's been up ambulating in his room. Awake and alert in no acute distress. He is maintaining good O2 saturations in the mid 90s on 2 L/m per nasal cannula. He's been afebrile. Hemodynamically stable. He denies any worsening chest pain. No worsening shortness of breath. Blood cultures reveal no growth. Sodium 141. Potassium 4.6. Creatinine 0.7. Chest x-ray reveals increasing opacity in the right lung. He is continued on IV Solu-Medrol, bronchodilators, antibiotics in the form of ceftriaxone. NicoDerm patch is in place. 0.9 normal saline at KVO. The patient is seen today 08/26/2017 in follow-up on the regular medical floor. He remains awake and alert in no acute distress. Maintaining O2 saturation in the mid 90s on 2 L/m per nasal cannula. Afebrile. Hemodynamically stable. Still with some shortness of breath with conversation. Shortness of breath with minimal exertion. Congested cough. He did undergo a right-sided thoracentesis on 08/24/2021. Fluid analysis revealed a exudate. Protein 3.5. LDH greater than 2500. 7. Cultures are pending. Cytology pending. Sputum culture revealed no growth. Blood cultures reveal no growth. Blood sugar 121. He did receive Eliquis this morning. He remains on IV Solu-Medrol, bronchodilators, antibiotics in the form of azithromycin. NicoDerm patch is in place. The patient is seen today 08/28/2021 in follow-up on the regular medical floor. He is currently sitting up at the bedside. Awake and alert in no acute distress. He is breathing quite a bit better. He did have his pigtail catheter placed yesterday. He initially had 2000 and also serosanguineous fluid drained. He's had greater than 400 mL of fluid as well in the past 24 hours. Blood gases reveals glucose of 85. Protein 2.7. LDH 1457. Exudative in nature. Cytology pending. Chest x-ray showing significant improvement in aeration of the right lung base. Pleural fluid cultures are pending. Cytology pending. Sodium 142. Potassium 4.6. Creatinine 0.7. Cytology from initial thoracentesis on 08/24/2019 revealed no malignancy. He is continued on azithromycin. Continued on bronchodilators and IV Solu-Medrol. NicoDerm patch in place. Objective - Vital Signs Vital signs: Vital Signs Temp 98.0 F 08/28/21 07:41 Pulse 74 08/28/21 12:03 Resp 16 08/28/21 08:55 BP 168/94 08/28/21 07:41 Pulse Ox 93 L 08/28/21 07:41 Intake & Output 08/27/21 08/28/21 08/28/21 18:59 06:59 18:59 Intake Total 236 118 Output Total 1860 Balance 236 -1860 118 Weight 58.967 kg Intake: Oral 236 118 Output: Drainage 0 Right Posterior Chest 1859 Other: Voiding Method Toilet Urinal # Voids 2 - Exam GENERAL: Well-developed very pleasant 71-year-old male patient, in no acute distress. currently on 2 L of oxygen per nasal cannula Head exam was generally normal. There was no scleral icterus or corneal arcus. Mucous membranes were moist. HEENT: Head is normocephalic. Pupils are equal, round. Sclerae anicteric. Mucous membranes of the mouth are moist. Neck supple. No JVD or thyromegaly LUNGS: Respirations even and unlabored. Lungs with decreased air exchange and expiratory wheezing noted. Right-sided pigtail catheter in place HEART: Regular rate and rhythm. S1 and S2 heard. ABDOMEN: Soft. Nondistended. Nontender. EXTREMITIES: Normal range of motion. No clubbing or cyanosis. Peripheral pulses intact. No lower extremity edema Neurologically, the patient is awake and alert and the patient does not have any focal neurological deficit. Cranial nerves are essentially intact. Examination of the skin revealed no evidence of significant rashes, suspicious appearing nevi or other concerning lesions. - Labs CBC & Chem 7: 08/27/21 06:30 08/28/21 05:38 Labs: Abnormal Lab Results - Last 24 Hours (Table) 08/27/21 08/27/21 08/28/21 Range/Units 17:11 20:43 05:38 BUN 27.4 H (9.0-27.0) mg/dL BUN/Creatinine Ratio 39.14 H (12.00-20.00) Ratio POC Glucose (mg/dL) 123 H 127 H (75-99) mg/dL 08/28/21 08/28/21 Range/Units 07:44 11:00 BUN (9.0-27.0) mg/dL BUN/Creatinine Ratio (12.00-20.00) Ratio POC Glucose (mg/dL) 106 H 166 H (75-99) mg/dL Microbiology - Last 24 Hours (Table) 08/27/21 09:50 Gram Stain - Preliminary Pleural Fluid Body Fluid Culture - Preliminary 08/24/21 12:58 Gram Stain - Final Pleural Fluid Body Fluid Culture - Final 08/21/21 18:30 Blood Culture - Final Blood No Growth after 144 hours 08/21/21 18:30 Blood Culture - Final Blood No Growth after 144 hours 08/27/21 09:25 Anaerobic Culture - Preliminary Pleural Fluid Assessment and Plan Assessment: 1 right lower lobe pneumonia, likely bacterial, likely community-acquired an acute in nature and the patient developed a small right-sided parapneumonic effusion. Increasing in size on today's chest x-ray. Pro-calcitonin level has been negative. There is another patchy area of subpleural consolidation in the right lower lobe which could be potentially an area of pneumonia. Malignancy is felt to be less likely. Pulmonary embolism is also felt to be less likely at this point in time. Thoracentesis performed and August 24 2021 with fluid analysis is exudative in nature with a protein of 3.5 and LDH greater than 2500. Glucose 7. Cytology was negative for malignancy. Cultures pending. Pigtail catheter placed on 08/27/2021 with greater than 2000 mL of fluid removed. Received alteplase. Fluid again appearing exudative. Cytology pending. 2 right-sided chest wall pain, limited pleurisy secondary to above 3 mild leukocytosis with a white cell count of 14, improved currently 11.6 4 acute hypoxic respiratory failure initially on 2 L nasal cannula, now on room air 5 Abdominal aortic aneurysm post-endovascular stent grafting 6 hypertension 7 history of peptic ulcer disease 8 acid reflux 9 history of scoliosis of the spine. 10 COPD , maintained 11 Smoker, 50 py 12 Completed COVID 19 vaccination times 3 Plan The patient was seen and evaluated Chest x-ray and labs reviewed Stable and on room air Right-sided pigtail catheter placed yesterday 08/27/2021 Received alteplase with greater than 2 L of serosanguineous fluid returned Pleural fluid analysis positive for exudate Cytology pending, cultures pending Currently on azithromycin Continue the current treatment plan We will continue to follow I, the cosigning physician, performed a history & physical examination of the patient. Lungs sounds bilateral end expiratory wheeze, diminished in the right lung base. Maintaining good O2 saturations in the 90s on room air. I discussed the assessment and plan of care with my nurse practitioner, Madie Parish. I attest to the above note as dictated by her.
--- NOTE | 2021-08-28 14:59 | P.PN ---
Subjective Progress Note Date: 08/28/21 Evangelist Woodall is a 71 yo M with PMH of HTN, COPD, tobacco abuse who presented to the ED complaining of chest pain as well as increasing shortness of breath over the past few days. He complains that he has been having R sided chest pain and tightness which has been sharp and constant in nature. He denies p alpitations, sweats, fever, chills. He has been experiencing cough as well. On presentation pt tachycardic, tachypneic, WBC 14k, d-dimer 4.15, procalcitonin negative, trop negative. CTA performed and showing R sided consolidation and pleural effusion. 08/25/2021 sitting up at side of bed, eating breakfast, reporting less shortness of breath. He underwent a right thoracentesis yesterday with 650 MLS/turbid appearance ,drained. Tolerated procedure well. Maintained on IV steroids, ceftriaxone and azithromycin. Denies cough. Reports no further right-sided chest pain. Chest x-ray reporting persistent confluent density at the right lung base, prominent lung volumes suggestive of underlying COPD, underlying emphysema, difficult to exclude associated effusion. Maintaining O2 sats in the 90s on 2 L nasal cannula. Afebrile, WBC trending down, 16.6. 08/26/2021 thoracentesis fluid, exudative, with suspected loculated empyema. Eliquis placed on hold for her upcoming pigtail catheter placement via interventional radiology as recommended per pulmonary. Cultures/cytology pending Sitting up at side of bed, feels well. Maintaining O2 sats in the 90s on room air. Denies any chest pain, palpitations or shortness of breath. Afebrile. 08/27/2021 . Maintain IV antibiotics, nebulized bronchodilators, IV steroids. Pigtail catheter placement with alteplase/dornase installation pending. Denies chest pain, palpitations or shortness of breath. Maintaining O2 sats in the 90s on room air. 08/28/21 pigtail catheter placed yesterday, 2 L of serosanguineous drainage, received first dose of alteplase/dornase yesterday and scheduled for another installation this morning. Tolerated procedure well. Chest x-ray reporting improvement in right lung base aeration. Maintaining O2 sats in the 90s on room air. IS up to 1999.Afebrile. PTH cytology of 08/25/2019 reported no malignancy. PTH cytology of 08/27 pending. Pleural fluid cultures pending. Ambulating in room, tolerating exertion well. Objective - Vital Signs Vital signs: Vital Signs Temp 98.0 F 08/28/21 07:41 Pulse 74 08/28/21 12:03 Resp 16 08/28/21 08:55 BP 168/94 08/28/21 07:41 Pulse Ox 93 L 08/28/21 07:41 Intake & Output 08/27/21 08/28/21 08/28/21 18:59 06:59 18:59 Intake Total 236 236 Output Total 1860 Balance 236 -1860 236 Weight 58.967 kg Intake: Oral 236 236 Output: Drainage 0 Right Posterior Chest 1859 Other: Voiding Method Toilet Urinal # Voids 2 - Exam General: Alert and oriented 3, Sitting up at side of bed, NAD. Vitals reviewed Eyes: PERRL, EOMI, conjunctiva normal HENT: normocephalic, mucus membranes moist Neck: supple, no JVD Lungs: Unlabored, diminished with right pigtail catheter to suction. CV: Regular rate and rhythm, no murmur. Peripheral pulses 2+ Abdomen: soft, nondistended, no organomegaly, +BS Skin: warm and dry. Neuro: No focal deficits - Labs CBC & Chem 7: 08/27/21 06:30 08/28/21 05:38 Labs: Abnormal Lab Results - Last 24 Hours (Table) 08/27/21 08/27/21 08/28/21 Range/Units 17:11 20:43 05:38 BUN 27.4 H (9.0-27.0) mg/dL BUN/Creatinine Ratio 39.14 H (12.00-20.00) Ratio POC Glucose (mg/dL) 123 H 127 H (75-99) mg/dL 08/28/21 08/28/21 Range/Units 07:44 11:00 BUN (9.0-27.0) mg/dL BUN/Creatinine Ratio (12.00-20.00) Ratio POC Glucose (mg/dL) 106 H 166 H (75-99) mg/dL Microbiology - Last 24 Hours (Table) 08/24/21 12:58 Anaerobic Culture - Final Pleural Fluid 08/27/21 09:50 Gram Stain - Preliminary Pleural Fluid Body Fluid Culture - Preliminary 08/24/21 12:58 Gram Stain - Final Pleural Fluid Body Fluid Culture - Final 08/21/21 18:30 Blood Culture - Final Blood No Growth after 144 hours 08/21/21 18:30 Blood Culture - Final Blood No Growth after 144 hours 08/27/21 09:25 Anaerobic Culture - Preliminary Pleural Fluid Assessment and Plan Assessment: Sepsis secondary to community-acquired pneumonia Right parapneumonic effusion, loculated empyema, status post right thoracentesis,650ml turbid. Status post right pigtail catheter placed as per IR. Thoracentesis cytology of 08/25/2021 reported no malignancy. Chest pain, suspect related to the above, subsided New onset paroxysmal atrial fibrillation with RVR, converted to sinus rhythm Acute hypoxic respiratory failure secondary to all the above Gastroesophageal reflux disease COPD, stable Ongoing nicotine dependence Hypertension History of AAA with stenting 2015 Anxiety Plan: Continue on current medication regime ,monitoring and symptomatic treatment. Pleural fluid cultures, cytology pending. Continue aggressive pulmonary toileting ,nebulized bronchodilators, IV steroids, antibx.,incentive spirometer reinforced. Increase activity as tolerated. The impression and plan of care has been dictated as directed. : I performed a history and examination of this patient, discussed the same with the dictator. I agree with the dictator's note ,documented as a scribe. Any additional findings or plans will be noted.
[2021-08-28] MEDS: AZITHROMYCIN 500 MG in SODIUM CHLORIDE 0.9% 250 ML IVPB SCH ×2 (16:47→17:06)
[2021-08-28 17:05] LABS: Glucose,Whole Blood 155 mg/dL (75-99)
[2021-08-28 20:54] LABS: Glucose,Whole Blood 155 mg/dL (75-99)
[2021-08-28] MEDS: ESCITALOPRAM 5 MG TAB PO SCH (21:38)
[2021-08-28] MEDS: lisinopriL 10 MG TAB PO SCH (21:38)
[2021-08-28] MEDS: SODIUM CHLORIDE 0.9% 1,000 ML IV SCH (22:44)
[2021-08-29] MEDS: methylPREDNISolone SOD SUCCI 125 MG/2 ML VIAL IV SCH ×4 (00:51→23:30)
[2021-08-29 07:11] LABS: Glucose,Whole Blood 115 mg/dL (75-99)
[2021-08-29] MEDS: IPRATROPIUM-ALBUTEROL 3 ML NEB INHALATION SCH ×4 (08:45→20:34)
--- NOTE | 2021-08-29 08:48 | XR ---
EXAMINATION TYPE: XR chest 1V portable DATE OF EXAM: 08/29/2021 COMPARISON: Chest x-ray 08/28/2021 HISTORY: Pleural effusion, shortness of breath, chest tube TECHNIQUE: Single frontal view of the chest is obtained. FINDINGS: Right-sided chest tube is present at the lung bases. There is improvement in aeration at t he right lung base. Cardiac mediastinal silhouette is stable. There is no evident pneumothorax. No si gnificant change. IMPRESSION: Improved aeration right lung base. Chest tube in place.
[2021-08-29] MEDS: INSULIN ASPART (NovoLOG) 100 UNIT/ML VIAL SQ SCH ×4 (09:04→21:32)
[2021-08-29] MEDS: VERAPAMIL SR 120 MG TABLET.ER PO SCH (09:24)
[2021-08-29] MEDS: NICOTINE 21MG/24HR PATCH TRANSDERM SCH (09:24)
[2021-08-29] MEDS: PANTOPRAZOLE 40 MG/10 ML VIAL IVP SCH (09:25)
--- NOTE | 2021-08-29 09:59 | P.PN ---
Subjective Progress Note Date: 08/29/21 Principal diagnosis: Right sided loculated pleural effusion, right lower lobe pneumonia, acute hypoxic respiratory failure. Previous medical history of abdominal aortic aneurysm status post endovascular stent grafting in 2013, hypertension, asthma, chronic ongoing tobacco dependence with COPD, GERD, vaccinated and boostered against COVID-19 POD #[address] guided right pigtail chest tube insertion performed by interventional radiology. The patient was seen and examined this morning sitting up in bed on 6 north in no acute distress. Patient complains of some pain at his pigtail catheter site, denies shortness of breath, currently on room air. Ambulating around the room without difficulty. Right-sided pigtail catheter remains present to continuous wall suction, 600 mL drainage in the last 24 hours. No other new concerns Objective - Vital Signs Vital signs: Vital Signs Temp 97.7 F 08/29/21 07:00 Pulse 86 08/29/21 08:57 Resp 16 08/29/21 07:00 BP 134/84 08/29/21 07:00 Pulse Ox 94 L 08/29/21 07:00 Intake & Output 08/28/21 08/29/21 08/29/21 18:59 06:59 18:59 Intake Total 436 240 Output Total 330 800 Balance 106 -800 240 Intake: Oral 436 240 Output: Drainage 330 300 Right Posterior Chest 330 300 Urine 500 Other: Voiding Method Toilet Toilet Urinal Urinal # Voids 1 - Exam CONSTITUTIONAL: Appears comfortable, cooperative, no acute distress RESPIRATORY: Lungs sounds diminished bilaterally. Respirations even, nonlabored. Currently on room air with oxygen saturation 93%. Able to achieve 2000 mL on incentive spirometry. Strong cough. CARDIOVASCULAR: S1, S2 present. Regular rate and rhythm. Palpable peripheral pulses bilaterally. No edema present. GASTROINTESTINAL: Abdomen soft, nontender, nondistended. Active bowel sounds present 4 quadrants. Tolerating diet. GENITOURINARY: Continues to void clear, yellow urine INTEGUMENTARY: Skin is warm and dry with evidence of good perfusion. NEUROLOGIC: Cranial nerves II through XII intact MUSKULOSKELETAL: Able to move all extremities, strength equal bilaterally, gait normal PSYCHIATRIC: Alert and oriented to person place and time, appropriate affect, intact judgment and insight INVASIVE LINES AND TUBES: Right-sided pigtail catheter present, connected to wall suction, no air leak present. 300 mL serous drainage overnight, 600 mL drainage in the last 24 hours - Allied health notes Allied health notes reviewed: nursing - Labs CBC & Chem 7: 08/27/21 06:30 08/28/21 05:38 Labs: Abnormal Lab Results - Last 24 Hours (Table) 08/28/21 08/28/21 08/28/21 Range/Units 05:38 11:00 17:03 BUN 27.4 H (9.0-27.0) mg/dL BUN/Creatinine Ratio 39.14 H (12.00-20.00) Ratio POC Glucose (mg/dL) 166 H 155 H (75-99) mg/dL 08/28/21 08/29/21 Range/Units 20:52 07:08 BUN (9.0-27.0) mg/dL BUN/Creatinine Ratio (12.00-20.00) Ratio POC Glucose (mg/dL) 155 H 115 H (75-99) mg/dL Microbiology - Last 24 Hours (Table) 08/24/21 12:58 Anaerobic Culture - Final Pleural Fluid 08/27/21 09:50 Gram Stain - Preliminary Pleural Fluid Body Fluid Culture - Preliminary 08/24/21 12:58 Gram Stain - Final Pleural Fluid Body Fluid Culture - Final - Imaging and Cardiology Chest x-ray: report reviewed, image reviewed Assessment and Plan Assessment: 1. Right sided loculated pleural effusion, right lower lobe pneumonia, status post pigtail catheter placement by interventional radiology 2. Acute hypoxic respiratory failure present on admission, currently on room air 3. Chronic ongoing tobacco dependence with COPD 4. History of abdominal aortic aneurysm status post endovascular stent grafting in 2013 5. Hypertension 6. Asthma 7. GERD 8. Vaccinated and boostered against COVID-19 Plan: 1. Will instill third dose of alteplase/dornase into right-sided pigtail catheter, monitor drainage 2. Will monitor daily x-rays 3. Encourage incentive spirometry use 4. Increase activity, ambulate as tolerated 5. Smoking cessation encouraged 6. Antibiotics, steroids per pulmonology 7. Medical management of other comorbidities per primary care service Time with Patient: Greater than 30
[2021-08-29 11:29] LABS: Glucose,Whole Blood 104 mg/dL (75-99)
[2021-08-29] MEDS ORDERED: DORNASE ALFA 5 MG in SODIUM CHLORIDE 0.9% 50 ML IRRIGATION ONE (11:36)
[2021-08-29] MEDS ORDERED: ALTEPLASE 10 MG in SODIUM CHLORIDE 0.9% 50 ML IRRIGATION ONE (11:36)
--- NOTE | 2021-08-29 11:47 | P.PN ---
Subjective Progress Note Date: 08/29/21 Evangelist Woodall is a 71 yo M with PMH of HTN, COPD, tobacco abuse who presented to the ED complaining of chest pain as well as increasing shortness of breath over the past few days. He complains that he has been having R sided chest pain and tightness which has been sharp and constant in nature. He denies p alpitations, sweats, fever, chills. He has been experiencing cough as well. On presentation pt tachycardic, tachypneic, WBC 14k, d-dimer 4.15, procalcitonin negative, trop negative. CTA performed and showing R sided consolidation and pleural effusion. 08/25/2021 sitting up at side of bed, eating breakfast, reporting less shortness of breath. He underwent a right thoracentesis yesterday with 650 MLS/turbid appearance ,drained. Tolerated procedure well. Maintained on IV steroids, ceftriaxone and azithromycin. Denies cough. Reports no further right-sided chest pain. Chest x-ray reporting persistent confluent density at the right lung base, prominent lung volumes suggestive of underlying COPD, underlying emphysema, difficult to exclude associated effusion. Maintaining O2 sats in the 90s on 2 L nasal cannula. Afebrile, WBC trending down, 16.6. 08/26/2021 thoracentesis fluid, exudative, with suspected loculated empyema. Eliquis placed on hold for her upcoming pigtail catheter placement via interventional radiology as recommended per pulmonary. Cultures/cytology pending Sitting up at side of bed, feels well. Maintaining O2 sats in the 90s on room air. Denies any chest pain, palpitations or shortness of breath. Afebrile. 08/27/2021 . Maintain IV antibiotics, nebulized bronchodilators, IV steroids. Pigtail catheter placement with alteplase/dornase installation pending. Denies chest pain, palpitations or shortness of breath. Maintaining O2 sats in the 90s on room air. 08/28/21 pigtail catheter placed yesterday, 2 L of serosanguineous drainage, received first dose of alteplase/dornase yesterday and scheduled for another installation this morning. Tolerated procedure well. Chest x-ray reporting improvement in right lung base aeration. Maintaining O2 sats in the 90s on room air. IS up to 1999.Afebrile. PTH cytology of 08/25/2019 reported no malignancy. PTH cytology of 08/27 pending. Pleural fluid cultures pending. Ambulating in room, tolerating exertion well. 08/29/2021 third instillation of alteplase/dornase into pigtail catheter pending. 600ml pigtail drainage over the last 24 hours. Incentive spirometer up to 1999. Maintaining O2 sats in the 90s on room air .chest x-ray reporting no significant change with improvement right lung base aeration .Afebrile. Pleural fluid cultures pending. Pleural cytology of 08/27/2021 reporting no malignancy. Complains of pain at pigtail site. Denies chest pain, palpitations or shortness of breath. Objective - Vital Signs Vital signs: Vital Signs Temp 97.7 F 08/29/21 07:00 Pulse 86 08/29/21 08:57 Resp 16 08/29/21 07:00 BP 134/84 08/29/21 07:00 Pulse Ox 94 L 08/29/21 07:00 Intake & Output 08/28/21 08/29/21 08/29/21 18:59 06:59 18:59 Intake Total 436 240 Output Total 330 800 Balance 106 -800 240 Intake: Oral 436 240 Output: Drainage 330 300 Right Posterior Chest 330 300 Urine 500 Other: Voiding Method Toilet Toilet Urinal Urinal # Voids 1 - Exam General: Alert and oriented 3, NAD. Vitals reviewed Eyes: PERRL, EOMI, conjunctiva normal HENT: normocephalic, mucus membranes moist Neck: supple, no JVD Lungs: Unlabored, diminished with right pigtail catheter to suction. CV: Regular rate and rhythm, no murmur. Peripheral pulses 2+ Abdomen: soft, nondistended, no organomegaly, +BS Skin: warm and dry. Neuro: No focal deficits - Labs CBC & Chem 7: 08/27/21 06:30 08/28/21 05:38 Labs: Abnormal Lab Results - Last 24 Hours (Table) 08/28/21 08/28/21 08/29/21 Range/Units 17:03 20:52 07:08 POC Glucose (mg/dL) 155 H 155 H 115 H (75-99) mg/dL Microbiology - Last 24 Hours (Table) 08/24/21 12:58 Anaerobic Culture - Final Pleural Fluid 08/27/21 09:50 Gram Stain - Preliminary Pleural Fluid Body Fluid Culture - Preliminary 08/24/21 12:58 Gram Stain - Final Pleural Fluid Body Fluid Culture - Final Assessment and Plan Assessment: Sepsis secondary to community-acquired pneumonia Right parapneumonic effusion, loculated, status post right thoracentesis,650ml turbid. Status post right pigtail catheter placed as per IR. Thoracentesis cytology of 08/25 & 08/27 reported no malignancy. Chest pain, suspect related to the above, subsided New onset paroxysmal atrial fibrillation with RVR, converted to sinus rhythm Acute hypoxic respiratory failure secondary to all the above Gastroesophageal reflux disease COPD, stable Ongoing nicotine dependence Hypertension History of AAA with stenting 2015 Anxiety Plan: Continue on current medication regime ,monitoring and symptomatic treatment.pigtail monitoring/maintenance as per CTS. Aggressive pulmonary toileting ,nebulized bronchodilators, IV steroids,incentive spirometer reinforced. Smoking cessation reinforced. Increase ambulation as tolerated. The impression and plan of care has been dictated as directed. : I performed a history and examination of this patient, discussed the same with the dictator. I agree with the dictator's note ,documented as a scribe. Any additional findings or plans will be noted.
--- NOTE | 2021-08-29 13:00 | P.PN ---
Subjective Progress Note Date: 08/29/21 71-year-old male patient presented to the hospital because of chest pain. He was also to bring of shortness of breath a few days duration. The patient presented to the emergency department yesterday. The patient had developed a right-sided chest wall pain. Upon arrival to the ED, he was quite anxious and he was pointing out to the right side of the chest that was quite painful and the pain was quite extensive at that point. No trauma. No chills. No fever. The patient was seen in the emergency department and the patient was found to have no fever. Hemodynamically stable, pulse ox was 94% on room in oxygen. Chest x-ray was done and a chest x-ray showed a consolidation in the right lower lobe and following that the patient was given a CTA that showed no evidence of any pulmonary embolism. There was a small right-sided pleural effusion. There was ill-defined the right lung base pulmonary infiltrates suspicious for an underlying pneumonia. Further blood work showed a white cell count of 14 with a hemoglobin of 14.5. D-dimer was at 4.15 and a normal correlation profile was noted. BUN was 22 with a creatinine of 0.6. Electrodes were normal. Troponins were negative. Pro-calcitonin level was 0.03 and the COVID 19 testing was negative. The patient was started on accommodation Rocephin and Zithromax. The patient was also started on IV Solu Medrol. The patient was also seen by cardiology. He is known to have hypertension, and he also is an abdominal aortic aneurysm receiving endovascular stent grafting back in 2016 at [facility]. He has also history of mild asthma, not receiving any maintenance treatment for now. The patient is seen today 08/23/2021 in follow-up on the regular medical floor. He's been up ambulating in his room. Awake and alert in no acute distress. He is maintaining good O2 saturations in the mid 90s on 2 L/m per nasal cannula. He's been afebrile. Hemodynamically stable. He denies any worsening chest pain. No worsening shortness of breath. Blood cultures reveal no growth. Sodium 141. Potassium 4.6. Creatinine 0.7. Chest x-ray reveals increasing opacity in the right lung. He is continued on IV Solu-Medrol, bronchodilators, antibiotics in the form of ceftriaxone. NicoDerm patch is in place. 0.9 normal saline at KVO. The patient is seen today 08/26/2017 in follow-up on the regular medical floor. He remains awake and alert in no acute distress. Maintaining O2 saturation in the mid 90s on 2 L/m per nasal cannula. Afebrile. Hemodynamically stable. Still with some shortness of breath with conversation. Shortness of breath with minimal exertion. Congested cough. He did undergo a right-sided thoracentesis on 08/24/2021. Fluid analysis revealed a exudate. Protein 3.5. LDH greater than 2500. 7. Cultures are pending. Cytology pending. Sputum culture revealed no growth. Blood cultures reveal no growth. Blood sugar 121. He did receive Eliquis this morning. He remains on IV Solu-Medrol, bronchodilators, antibiotics in the form of azithromycin. NicoDerm patch is in place. The patient is seen today 08/28/2021 in follow-up on the regular medical floor. He is currently sitting up at the bedside. Awake and alert in no acute distress. He is breathing quite a bit better. He did have his pigtail catheter placed yesterday. He initially had 2000 and also serosanguineous fluid drained. He's had greater than 400 mL of fluid as well in the past 24 hours. Blood gases reveals glucose of 85. Protein 2.7. LDH 1457. Exudative in nature. Cytology pending. Chest x-ray showing significant improvement in aeration of the right lung base. Pleural fluid cultures are pending. Cytology pending. Sodium 142. Potassium 4.6. Creatinine 0.7. Cytology from initial thoracentesis on 08/24/2021 revealed no malignancy. He is continued on azithromycin. Continued on bronchodilators and IV Solu-Medrol. NicoDerm patch in place. The patient is seen today 08/29/2021 in follow-up on the regular medical floor. He is currently sitting up. Awake and alert in no acute distress. Breathing quite a bit easier today. Currently maintaining O2 saturations in the 90s on room air. Right-sided pigtail catheter remains in place. He had approximate 600 mL of serosanguineous fluid out in the past 24 hours. He did receive alteplase/dornase infusion yesterday. The plan is for another dose today. Pleural fluid from 08/27/2021 revealed no evidence of malignancy. His x-ray continues to show improved aeration of the right lung base. Pigtail catheter remains in place. He is continued on DuoNeb inhalations, IV Solu-Medrol. NicoDerm patch in place. Initial fluid cultures revealed no growth. Second blood cultures are pending. Objective - Vital Signs Vital signs: Vital Signs Temp 97.7 F 08/29/21 07:00 Pulse 85 08/29/21 12:17 Resp 16 08/29/21 07:00 BP 134/84 08/29/21 07:00 Pulse Ox 94 L 08/29/21 07:00 Intake & Output 08/28/21 08/29/21 08/29/21 18:59 06:59 18:59 Intake Total 436 240 Output Total 330 800 Balance 106 -800 240 Intake: Oral 436 240 Output: Drainage 330 300 Right Posterior Chest 330 300 Urine 500 Other: Voiding Method Toilet Toilet Urinal Urinal # Voids 1 - Exam GENERAL: Well-developed very pleasant 71-year-old male patient, in no acute distress. currently on room air Head exam was generally normal. There was no scleral icterus or corneal arcus. Mucous membranes were moist. HEENT: Head is normocephalic. Pupils are equal, round. Sclerae anicteric. Mucous membranes of the mouth are moist. Neck supple. No JVD or thyromegaly LUNGS: Respirations even and unlabored. Lungs with faint crackles in the right base. Right-sided pigtail catheter in place HEART: Regular rate and rhythm. S1 and S2 heard. ABDOMEN: Soft. Nondistended. Nontender. EXTREMITIES: Normal range of motion. No clubbing or cyanosis. Peripheral pulses intact. No lower extremity edema Neurologically, the patient is awake and alert and the patient does not have any focal neurological deficit. Cranial nerves are essentially intact. Examination of the skin revealed no evidence of significant rashes, suspicious appearing nevi or other concerning lesions. - Labs CBC & Chem 7: 08/27/21 06:30 08/28/21 05:38 Labs: Abnormal Lab Results - Last 24 Hours (Table) 08/28/21 08/28/21 08/29/21 Range/Units 17:03 20:52 07:08 POC Glucose (mg/dL) 155 H 155 H 115 H (75-99) mg/dL 08/29/21 Range/Units 11:26 POC Glucose (mg/dL) 104 H (75-99) mg/dL Microbiology - Last 24 Hours (Table) 08/27/21 09:50 Gram Stain - Preliminary Pleural Fluid Body Fluid Culture - Preliminary 08/24/21 12:58 Anaerobic Culture - Final Pleural Fluid 08/24/21 12:58 Gram Stain - Final Pleural Fluid Body Fluid Culture - Final Assessment and Plan Assessment: 1 Right lower lobe pneumonia, likely bacterial, likely community-acquired an acute in nature and the patient developed a small right-sided parapneumonic effusion. Increasing in size on today's chest x-ray. Pro-calcitonin level has been negative. There is another patchy area of subpleural consolidation in the right lower lobe which could be potentially an area of pneumonia. Malignancy is felt to be less likely. Pulmonary embolism is also felt to be less likely at this point in time. Thoracentesis performed and August 24 2021 with fluid analysis is exudative in nature with a protein of 3.5 and LDH greater than 2500. Glucose 7. Cytology was negative for malignancy. Cultures revealed no growth. Pigtail catheter placed on 08/27/2021 with greater than 2000 of fluid removed. Received alteplase/dornase. Fluid again appearing exudative. Cytology negative for malignancy. 2 Right-sided chest wall pain, limited pleurisy secondary to above 3 Mild leukocytosis with a white cell count of 14, improved currently 11.6 4 Acute hypoxic respiratory failure initially on 2 L nasal cannula, now on room air 5 Abdominal aortic aneurysm post-endovascular stent grafting 6 Hypertension 7 History of peptic ulcer disease 8 Acid reflux 9 History of scoliosis of the spine. 10 COPD , maintained 11 Smoker, 50 py 12 Completed COVID 19 vaccination times 3 Plan: The patient was seen and evaluated Chest x-ray and labs reviewed Chest x-ray showing improvement in the right lower lobe effusion Stable and on room air Right-sided pigtail catheter with serosanguineous output Received alteplase/dornase Continue the current treatment plan Follow-up chest x-ray in a.m., may remove pigtail catheter in a.m. We will continue to follow I, the cosigning physician, performed a history & physical examination of the patient. Lungs sounds faint crackles in the right lung base. Maintaining good O2 saturations in the 90s on room air. I discussed the assessment and plan of care with my nurse practitioner, Madie Parish. I attest to the above note as dictated by her.
[2021-08-29 17:25] LABS: Glucose,Whole Blood 126 mg/dL (75-99)
[2021-08-29 21:11] LABS: Glucose,Whole Blood 143 mg/dL (75-99)
[2021-08-29] MEDS: ESCITALOPRAM 5 MG TAB PO SCH (21:32)
[2021-08-29] MEDS: lisinopriL 10 MG TAB PO SCH (21:32)
[2021-08-29] MEDS: SODIUM CHLORIDE 0.9% 1,000 ML IV SCH (21:33)
--- NOTE | 2021-08-30 07:21 | XR ---
EXAMINATION TYPE: XR chest 1V portable DATE OF EXAM: 08/30/2021 6:51 AM COMPARISON:Chest radiograph from one day prior. TECHNIQUE: Frontal view of the chest. CLINICAL INDICATION:Male, 71 years old with history of right pleural effusion; FINDINGS: Lungs/Pleura: There is flattening of the diaphragm with increased lucency of the lungs. No evidence o f pneumothorax, or focal consolidation. Of blunting of the right costophrenic angle. Pulmonary vascularity: Unremarkable. Heart/mediastinum: Cardiomediastinal silhouette is unremarkable. Musculoskeletal: No acute osseous pathology. Right shoulder arthroplasty changes and surgical clips. Lines/Tubes: Right thoracotomy tube is present without evidence of pneumothorax. IMPRESSION: 1. Stable right thoracotomy tube without evidence of pneumothorax. This right pleural effusion with r ight basilar atelectasis. 2. COPD changes.
[2021-08-30 07:25] LABS: Glucose,Whole Blood 112 mg/dL (75-99)
[2021-08-30] MEDS: IPRATROPIUM-ALBUTEROL 3 ML NEB INHALATION SCH ×4 (08:05→20:53)
--- NOTE | 2021-08-30 08:33 | P.PN ---
Subjective Progress Note Date: 08/30/21 Principal diagnosis: Right sided loculated pleural effusion, right lower lobe pneumonia, acute hypoxic respiratory failure. Previous medical history of abdominal aortic aneurysm status post endovascular stent grafting in 2014, hypertension, asthma, chronic ongoing tobacco dependence with COPD, GERD, vaccinated and boostered against COVID-19 POD #[address] guided right pigtail chest tube insertion performed by interventional radiology. The patient was seen and examined this morning sitting up in bed eating breakfast on 6 north in no acute distress. Patient complains of some pain at his pigtail catheter site, denies shortness of breath, currently on room air. Ambulating around the room without difficulty. Right-sided pigtail catheter remains present to continuous wall suction, no air leak present this morning, 70 mL drainage in the last 24 hours. Alteplase not instilled yesterday as there was a continuous air leak which wasn't present yesterday morning. Nursing reported patient was disconnecting his pigtail catheter from the chest tube, the patient reported he only did it one time. Patient expresses wishes that he wants to go home. Objective - Vital Signs Vital signs: Vital Signs Temp 98.0 F 08/30/21 07:00 Pulse 85 08/30/21 07:00 Resp 16 08/30/21 07:00 BP 151/95 08/30/21 07:00 Pulse Ox 94 L 08/30/21 07:00 Intake & Output 08/29/21 08/30/21 08/30/21 18:59 06:59 18:59 Intake Total 518 Output Total 75 30 Balance 443 -30 Intake: Intake, IV Titration 160 Amount Sodium Chloride 0.9% 1, 160 000 ml @ 20 mls/hr IV . Q24H [facility] Rx#:[id number] Oral 358 Output: Drainage 75 30 Right Posterior Chest 75 30 Other: Voiding Method Toilet Urinal - Exam CONSTITUTIONAL: Appears comfortable, cooperative, no acute distress RESPIRATORY: Lungs sounds diminished bilaterally. Respirations even, nonlabored. Currently on room air with oxygen saturation 93%. Able to achieve 2000 mL on incentive spirometry. Strong cough. CARDIOVASCULAR: S1, S2 present. Regular rate and rhythm. Palpable peripheral pulses bilaterally. No edema present. GASTROINTESTINAL: Abdomen soft, nontender, nondistended. Active bowel sounds present 4 quadrants. Tolerating diet. GENITOURINARY: Continues to void clear, yellow urine INTEGUMENTARY: Skin is warm and dry with evidence of good perfusion. NEUROLOGIC: Cranial nerves II through XII intact MUSKULOSKELETAL: Able to move all extremities, strength equal bilaterally, gait normal PSYCHIATRIC: Alert and oriented to person place and time, appropriate affect, intact judgment and insight INVASIVE LINES AND TUBES: Right-sided pigtail catheter present, connected to wall suction, no air leak present. 30 mL serous drainage overnight, 100 mL drainage in the last 24 hours - Allied health notes Allied health notes reviewed: nursing - Labs CBC & Chem 7: 08/27/21 06:30 08/28/21 05:38 Labs: Abnormal Lab Results - Last 24 Hours (Table) 08/29/21 08/29/21 08/29/21 Range/Units 11:26 17:23 21:09 POC Glucose (mg/dL) 104 H 126 H 143 H (75-99) mg/dL 08/30/21 Range/Units 07:24 POC Glucose (mg/dL) 112 H (75-99) mg/dL Microbiology - Last 24 Hours (Table) 08/27/21 09:25 Anaerobic Culture - Preliminary Pleural Fluid 08/27/21 09:50 Gram Stain - Preliminary Pleural Fluid Body Fluid Culture - Preliminary - Imaging and Cardiology Chest x-ray: report reviewed, image reviewed Assessment and Plan Assessment: 1. Right sided loculated pleural effusion, right lower lobe pneumonia, status post pigtail catheter placement by interventional radiology 2. Acute hypoxic respiratory failure present on admission, currently on room air 3. Chronic ongoing tobacco dependence with COPD 4. History of abdominal aortic aneurysm status post endovascular stent grafting in 2013 5. Hypertension 6. Asthma 7. GERD 8. Vaccinated and boostered against COVID-19 Plan: 1. No further lytic instillation. Recommend removal of pigtail catheter when ok with pulmonology 2. Encourage incentive spirometry use 3. Increase activity, ambulate as tolerated 4. Smoking cessation encouraged 5. Antibiotics, steroids per pulmonology 6. Medical management of other comorbidities per primary care service 7. Will see again on an as needed basis. Please call us with any questions Time with Patient: Greater than 30
[2021-08-30] MEDS: INSULIN ASPART (NovoLOG) 100 UNIT/ML VIAL SQ SCH ×4 (08:40→20:37)
[2021-08-30] MEDS: NICOTINE 21MG/24HR PATCH TRANSDERM SCH (08:42)
[2021-08-30] MEDS: PANTOPRAZOLE 40 MG/10 ML VIAL IVP SCH (08:42)
[2021-08-30] MEDS: VERAPAMIL SR 120 MG TABLET.ER PO SCH (08:42)
[2021-08-30] MEDS: methylPREDNISolone SOD SUCCI 125 MG/2 ML VIAL IV SCH ×3 (08:42→23:52)
[2021-08-30 11:06] LABS: Glucose,Whole Blood 108 mg/dL (75-99)
[2021-08-30 11:45] LABS: Basophils # (A) 0.05 X 10*3/uL (0.00-0.10); Basophils % (A) 0.3 %; Eosinophils # (A) 0 X 10*3/uL (0.04-0.35); Eosinophils % (A) 0 %; HCT 43.3 % (39.6-50.0); HGB 14.1 g/dL (13.0-17.0); Lymphocytes # (A) 0.53 X 10*3/uL (0.90-5.00); Lymphocytes % (A) 3.2 %; MCH 30.8 pg (27.0-32.0); MCHC 32.6 g/dL (32.0-37.0); MCV 94.5 fL (80.0-97.0); Mean Platelet Volume 10.5 fL (9.5-12.2); Monocytes # (A) 1.09 X 10*3/uL (0.20-1.00); Monocytes % (A) 6.6 %; Neutrophils % (A) 87.1 %; Platelet Count 380 X 10*3/uL (140-440); RBC 4.58 X 10*6/uL (4.40-5.60); WBC 16.43 X 10*3/uL (4.50-10.00)
[2021-08-30 12:22] LABS: African American GFR (CKD) 102.7 (60.0-200.0); Anion Gap 11.9 mmol/L (10.00-18.00); BUN/Creat Ratio 40.25 Ratio (12.00-20.00); Blood Urea Nitrogen 32.2 mg/dL (9.0-27.0); Calcium 9.1 mg/dL (8.7-10.3); Carbon Dioxide 22.1 mmol/L (20.0-27.5); Non-African American GFR(CKD) 88.6 (60.0-200.0); Potassium 5.4 mmol/L (3.5-5.5)
--- NOTE | 2021-08-30 14:26 | P.PN ---
Subjective Progress Note Date: 08/30/21 Principal diagnosis: Right lower lobe pneumonia, community-acquired, and right-sided parapneumonic effusion. On 08/24/2021 patient in follow-up on medical surgical floor, patient is on 2 L of oxygen his pulse ox of 92%, vital signs have been stable, his been afebrile, today's x-ray has been reviewed, and follow-up CT chest without contrast showing right-sided consolidation with increasing pleural effusion moderate to large in size. Based on the findings of the computed tomography scan of the chest right- sided thoracentesis was done at the bedside by Dr. Blount, please refer to the procedure note, and 650 mL of turbid cloudy fluid was withdrawn and sent for analysis. Patient tolerated the procedure very well, postprocedure chest x-ray showed no pneumothorax, and interval reduction in the amount of pleural fluid with persistent consolidation and small amount of fluid. Patient remains on IV Solu-Medrol 60 mg every 8 hours, remains on Rocephin, Zithromax Has dropped off, but we will add back on. Patient was reevaluated today on 08/25/2021, patient is on 2 L nasal cannula, resting in bed, in no distress, felt much better since he underwent thoracentesis. Based on the chemical profile, the fluid is definitely exudative in nature, and could very well be empyema related, his LDH is high total protein is high, and the glucose is only 7. However so far that Gram stain is negative and the cultures are negative. Blood cultures are negative and the sputum is nondiagnostic. Clinically however the patient is feeling better. The patient is seen today 08/28/2021 in follow-up on the regular medical floor. He is currently sitting up at the bedside. Awake and alert in no acute distress. He is breathing quite a bit better. He did have his pigtail catheter placed yesterday. He initially had 2000 and also serosanguineous fluid drained. He's had greater than 400 mL of fluid as well in the past 24 hours. Blood gases reveals glucose of 85. Protein 2.7. LDH 1457. Exudative in nature. Cytology pending. Chest x-ray showing significant improvement in aeration of the right lung base. Pleural fluid cultures are pending. Cytology pending. Sodium 142. Potassium 4.6. Creatinine 0.7. Cytology from initial thoracentesis on 08/24/2021 revealed no malignancy. He is continued on azithromycin. Continued on bronchodilators and IV Solu-Medrol. NicoDerm patch in place. The patient is seen today 08/29/2021 in follow-up on the regular medical floor. He is currently sitting up. Awake and alert in no acute distress. Breathing quite a bit easier today. Currently maintaining O2 saturations in the 90s on room air. Right-sided pigtail catheter remains in place. He had approximate 600 mL of serosanguineous fluid out in the past 24 hours. He did receive alteplase/dornase infusion yesterday. The plan is for another dose today. Pleural fluid from 08/27/2021 revealed no evidence of malignancy. His x-ray continues to show improved aeration of the right lung base. Pigtail catheter remains in place. He is continued on DuoNeb inhalations, IV Solu-Medrol. NicoDerm patch in place. Initial fluid cultures revealed no growth. Second blood cultures are pending. Reevaluated today on 08/30/2021, patient remains on the regular medical floor, continues to have a pigtail chest tube in place, patient is now postoperative day #3. Continues to have drainage, he had 70 mL drained in the last 24 hours, overall the patient continues to do well, and his chest x-ray today is reassuring, minimal amount of fluid is noted in the right pleural space, and an planning to consider removing his pigtail catheter on Wednesday, and discharge the patient home on antibiotics. Cultures from the fluid had been nondiagnostic. Cytology has been negative. Clinically the patient is doing great, relatively asymptomatic. Objective - Vital Signs Vital signs: Vital Signs Temp 98.0 F 08/30/21 07:00 Pulse 92 08/30/21 12:00 Resp 16 08/30/21 08:00 BP 151/95 08/30/21 07:00 Pulse Ox 94 L 08/30/21 07:00 Intake & Output 08/29/21 08/30/21 08/30/21 18:59 06:59 18:59 Intake Total 518 118 Output Total 75 30 Balance 443 -30 118 Intake: Intake, IV Titration 160 Amount Sodium Chloride 0.9% 1, 160 000 ml @ 20 mls/hr IV . Q24H [facility] Rx#:[id number] Oral 358 118 Output: Drainage 75 30 Right Posterior Chest 75 30 Other: Voiding Method Toilet Toilet Urinal Urinal - Exam GENERAL EXAM: Revealed 71-year-old white male in no distress, on room air. Head: Atraumatic, normocephalic. EENT: PERRLA, EOMI, nonicteric, no neck masses, no JVD, no stridor. CHEST: Symmetrical chest expansion, clear throughout no crackles or rhonchi or wheezes, pigtail catheter is intact. And connected to Pleur-evac. CVS: Distant S1 and S2, no S3 gallop. ABDOMEN: Soft, nontender. No hepatosplenomegaly, normal bowel sounds, no guarding or rigidity. EXTREMITIES: No clubbing, no edema, no cyanosis, 2+ pulses and upper and lower extremities. MUSCULOSKELETAL: Muscle strength and tone normal. SKIN: No rashes CENTRAL NERVOUS SYSTEM: No gross focal neurologic deficits. PSYCHIATRIC: Normal mood, affect and normal mental status examination - Labs CBC & Chem 7: 08/30/21 07:14 08/30/21 07:14 Labs: Abnormal Lab Results - Last 24 Hours (Table) 08/29/21 08/29/21 08/30/21 Range/Units 17:23 21:09 07:14 WBC 16.43 H (4.50-10.00) X 10*3/uL Immature Gran # 0.46 H (0.00-0.04) X 10*3/uL Neutrophils # 14.30 H (1.80-7.70) X 10*3/uL Lymphocytes # 0.53 L (0.90-5.00) X 10*3/uL Monocytes # 1.09 H (0.20-1.00) X 10*3/uL Eosinophils # 0 L (0.04-0.35) X 10*3/uL BUN (9.0-27.0) mg/dL BUN/Creatinine Ratio (12.00-20.00) Ratio POC Glucose (mg/dL) 126 H 143 H (75-99) mg/dL 08/30/21 08/30/21 08/30/21 Range/Units 07:14 07:24 11:02 WBC (4.50-10.00) X 10*3/uL Immature Gran # (0.00-0.04) X 10*3/uL Neutrophils # (1.80-7.70) X 10*3/uL Lymphocytes # (0.90-5.00) X 10*3/uL Monocytes # (0.20-1.00) X 10*3/uL Eosinophils # (0.04-0.35) X 10*3/uL BUN 32.2 H (9.0-27.0) mg/dL BUN/Creatinine Ratio 40.25 H (12.00-20.00) Ratio POC Glucose (mg/dL) 112 H 108 H (75-99) mg/dL Microbiology - Last 24 Hours (Table) 08/27/21 09:50 Gram Stain - Preliminary Pleural Fluid Body Fluid Culture - Preliminary 08/27/21 09:25 Anaerobic Culture - Preliminary Pleural Fluid Assessment and Plan Assessment: Impression: Acute community-acquired the right lower lobe pneumonia with parapneumonic effusion, status post thoracentesis followed by pigtail chest tube insertion by interventional radiology, cultures have been negative and cytology has been negative. Right-sided chest wall pain secondary to pleural effusion Abdominal aortic aneurysm, post endovascular stent grafting. Acute hypoxic respiratory failure secondary to pneumonia and pleural effusion benign essential hypertension Underlying COPD presently inactive [id number] smoking history Fully vaccinated. Recommendation: Continue pigtail catheter drainage. Consider removing the pigtail catheter in the next 24-48 hours. And the patient will be discharged home on antibiotics after removal of his pigtail catheter. Continue antibiotics although cultures have been negative and cytology has been negative. Anticipated discharge on Wednesday. Will continue to follow.
[2021-08-30 17:35] LABS: Glucose,Whole Blood 136 mg/dL (75-99)
[2021-08-30 20:18] LABS: Glucose,Whole Blood 114 mg/dL (75-99)
[2021-08-30] MEDS: ESCITALOPRAM 5 MG TAB PO SCH (20:35)
[2021-08-30] MEDS: SODIUM CHLORIDE 0.9% 1,000 ML IV SCH (20:36)
[2021-08-30] MEDS: lisinopriL 10 MG TAB PO SCH (20:36)
[2021-08-31 07:35] LABS: Glucose,Whole Blood 107 mg/dL (75-99)
[2021-08-31] MEDS: INSULIN ASPART (NovoLOG) 100 UNIT/ML VIAL SQ SCH ×4 (08:11→21:40)
[2021-08-31] MEDS: IPRATROPIUM-ALBUTEROL 3 ML NEB INHALATION SCH ×4 (08:13→20:59)
[2021-08-31] MEDS: methylPREDNISolone SOD SUCCI 125 MG/2 ML VIAL IV SCH ×2 (08:13→16:05)
[2021-08-31] MEDS: PANTOPRAZOLE 40 MG/10 ML VIAL IVP SCH (08:13)
[2021-08-31] MEDS: NICOTINE 21MG/24HR PATCH TRANSDERM SCH (08:13)
[2021-08-31] MEDS: VERAPAMIL SR 120 MG TABLET.ER PO SCH (08:14)
[2021-08-31 12:31] LABS: Glucose,Whole Blood 112 mg/dL (75-99)
--- NOTE | 2021-08-31 14:54 | P.PN ---
Subjective Progress Note Date: 08/31/21 Principal diagnosis: Right lower lobe pneumonia, community-acquired, and right-sided parapneumonic effusion. On 08/24/2021 patient in follow-up on medical surgical floor, patient is on 2 L of oxygen his pulse ox of 92%, vital signs have been stable, his been afebrile, today's x-ray has been reviewed, and follow-up CT chest without contrast showing right-sided consolidation with increasing pleural effusion moderate to large in size. Based on the findings of the computed tomography scan of the chest right- sided thoracentesis was done at the bedside by Dr. Blount, please refer to the procedure note, and 650 mL of turbid cloudy fluid was withdrawn and sent for analysis. Patient tolerated the procedure very well, postprocedure chest x-ray showed no pneumothorax, and interval reduction in the amount of pleural fluid with persistent consolidation and small amount of fluid. Patient remains on IV Solu-Medrol 60 mg every 8 hours, remains on Rocephin, Zithromax Has dropped off, but we will add back on. Patient was reevaluated today on 08/25/2021, patient is on 2 L nasal cannula, resting in bed, in no distress, felt much better since he underwent thoracentesis. Based on the chemical profile, the fluid is definitely exudative in nature, and could very well be empyema related, his LDH is high total protein is high, and the glucose is only 7. However so far that Gram stain is negative and the cultures are negative. Blood cultures are negative and the sputum is nondiagnostic. Clinically however the patient is feeling better. The patient is seen today 08/28/2021 in follow-up on the regular medical floor. He is currently sitting up at the bedside. Awake and alert in no acute distress. He is breathing quite a bit better. He did have his pigtail catheter placed yesterday. He initially had 2000 and also serosanguineous fluid drained. He's had greater than 400 mL of fluid as well in the past 24 hours. Blood gases reveals glucose of 85. Protein 2.7. LDH 1457. Exudative in nature. Cytology pending. Chest x-ray showing significant improvement in aeration of the right lung base. Pleural fluid cultures are pending. Cytology pending. Sodium 142. Potassium 4.6. Creatinine 0.7. Cytology from initial thoracentesis on 08/24/2021 revealed no malignancy. He is continued on azithromycin. Continued on bronchodilators and IV Solu-Medrol. NicoDerm patch in place. The patient is seen today 08/29/2021 in follow-up on the regular medical floor. He is currently sitting up. Awake and alert in no acute distress. Breathing quite a bit easier today. Currently maintaining O2 saturations in the 90s on room air. Right-sided pigtail catheter remains in place. He had approximate 600 mL of serosanguineous fluid out in the past 24 hours. He did receive alteplase/dornase infusion yesterday. The plan is for another dose today. Pleural fluid from 08/27/2021 revealed no evidence of malignancy. His x-ray continues to show improved aeration of the right lung base. Pigtail catheter remains in place. He is continued on DuoNeb inhalations, IV Solu-Medrol. NicoDerm patch in place. Initial fluid cultures revealed no growth. Second blood cultures are pending. Reevaluated today on 08/30/2021, patient remains on the regular medical floor, continues to have a pigtail chest tube in place, patient is now postoperative day #3. Continues to have drainage, he had 70 mL drained in the last 24 hours, overall the patient continues to do well, and his chest x-ray today is reassuring, minimal amount of fluid is noted in the right pleural space, and an planning to consider removing his pigtail catheter on Wednesday, and discharge the patient home on antibiotics. Cultures from the fluid had been nondiagnostic. Cytology has been negative. Clinically the patient is doing great, relatively asymptomatic. Reevaluated today on 08/31/2021, patient is doing much better today, he is on room air, in no distress, hardly any drainage overnight from his pigtail catheter into the pleural VAC. Patient is now postoperative day #4, and I plan to discharge the patient home tomorrow after removing his pigtail catheter by interventional radiology. Objective - Vital Signs Vital signs: Vital Signs Temp 98.7 F 08/31/21 14:34 Pulse 82 08/31/21 14:34 Resp 18 08/31/21 14:34 BP 111/70 08/31/21 14:34 Pulse Ox 96 08/31/21 14:34 Intake & Output 08/30/21 08/31/21 08/31/21 18:59 06:59 18:59 Intake Total 518 418 Output Total 600 720 Balance -82 -720 418 Intake: Oral 518 418 Output: Urine 600 720 Other: Voiding Method Toilet Toilet Urinal Urinal # Voids 3 - Exam GENERAL EXAM: Revealed 71-year-old white male in no distress, on room air. Head: Atraumatic, normocephalic. EENT: PERRLA, EOMI, nonicteric, no neck masses, no JVD, no stridor. CHEST: Symmetrical chest expansion, clear throughout no crackles or rhonchi or wheezes, pigtail catheter is intact. And connected to Pleur-evac. Minimal drainage overnight. CVS: Distant S1 and S2, no S3 gallop. ABDOMEN: Soft, nontender. No hepatosplenomegaly, normal bowel sounds, no guarding or rigidity. EXTREMITIES: No clubbing, no edema, no cyanosis, 2+ pulses and upper and lower extremities. MUSCULOSKELETAL: Muscle strength and tone normal. SKIN: No rashes CENTRAL NERVOUS SYSTEM: No gross focal neurologic deficits. PSYCHIATRIC: Normal mood, affect and normal mental status examination - Labs CBC & Chem 7: 08/30/21 07:14 08/30/21 07:14 Labs: Abnormal Lab Results - Last 24 Hours (Table) 08/30/21 08/30/21 08/31/21 Range/Units 17:32 20:16 07:34 POC Glucose (mg/dL) 136 H 114 H 107 H (75-99) mg/dL 08/31/21 Range/Units 12:29 POC Glucose (mg/dL) 112 H (75-99) mg/dL Microbiology - Last 24 Hours (Table) 08/27/21 09:25 Anaerobic Culture - Final Pleural Fluid 08/27/21 09:50 Gram Stain - Final Pleural Fluid Body Fluid Culture - Final Assessment and Plan Assessment: Impression: Acute community-acquired the right lower lobe pneumonia with parapneumonic effusion, status post thoracentesis followed by pigtail chest tube insertion by interventional radiology, cultures have been negative and cytology has been negative. Right-sided chest wall pain secondary to pleural effusion Abdominal aortic aneurysm, post endovascular stent grafting. Acute hypoxic respiratory failure secondary to pneumonia and pleural effusion benign essential hypertension Underlying COPD presently inactive [id number] smoking history Fully vaccinated. Recommendation: Continue pigtail catheter drainage. For the next 24 hours, and remove by interventional radiology in a.m. Discharge home after removal of pigtail catheter tomorrow. Continue antibiotics on outpatient basis. Anticipated dischargIn a.m. after removal of pigtail catheter by interventional radiology Will continue to follow. Time with Patient: Less than 30
--- NOTE | 2021-08-31 17:12 | P.PN ---
Subjective Progress Note Date: 08/30/21 Principal diagnosis: Right lower lobe pneumonia; community-acquired Right-sided parapneumonic effusion Objective - Vital Signs Vital signs: Vital Signs Temp 98.0 F 08/30/21 07:00 Pulse 92 08/30/21 12:00 Resp 16 08/30/21 08:00 BP 151/95 08/30/21 07:00 Pulse Ox 94 L 08/30/21 07:00 Intake & Output 08/29/21 08/30/21 08/30/21 18:59 06:59 18:59 Intake Total 518 518 Output Total 75 30 Balance 443 -30 518 Intake: Intake, IV Titration 160 Amount Sodium Chloride 0.9% 1, 160 000 ml @ 20 mls/hr IV . [facility] Rx#:[id number] Oral 358 518 Output: Drainage 75 30 Right Posterior Chest 75 30 Other: Voiding Method Toilet Toilet Urinal Urinal - Labs CBC & Chem 7: 08/30/21 07:14 08/30/21 07:14 Labs: Abnormal Lab Results - Last 24 Hours (Table) 08/29/21 08/29/21 08/30/21 Range/Units 17:23 21:09 07:14 WBC 16.43 H (4.50-10.00) X 10*3/uL Immature Gran # 0.46 H (0.00-0.04) X 10*3/uL Neutrophils # 14.30 H (1.80-7.70) X 10*3/uL Lymphocytes # 0.53 L (0.90-5.00) X 10*3/uL Monocytes # 1.09 H (0.20-1.00) X 10*3/uL Eosinophils # 0 L (0.04-0.35) X 10*3/uL BUN (9.0-27.0) mg/dL BUN/Creatinine Ratio (12.00-20.00) Ratio POC Glucose (mg/dL) 126 H 143 H (75-99) mg/dL 08/30/21 08/30/21 08/30/21 Range/Units 07:14 07:24 11:02 WBC (4.50-10.00) X 10*3/uL Immature Gran # (0.00-0.04) X 10*3/uL Neutrophils # (1.80-7.70) X 10*3/uL Lymphocytes # (0.90-5.00) X 10*3/uL Monocytes # (0.20-1.00) X 10*3/uL Eosinophils # (0.04-0.35) X 10*3/uL BUN 32.2 H (9.0-27.0) mg/dL BUN/Creatinine Ratio 40.25 H (12.00-20.00) Ratio POC Glucose (mg/dL) 112 H 108 H (75-99) mg/dL Microbiology - Last 24 Hours (Table) 08/27/21 09:50 Gram Stain - Preliminary Pleural Fluid Body Fluid Culture - Preliminary 08/27/21 09:25 Anaerobic Culture - Preliminary Pleural Fluid Assessment and Plan Assessment: 1. Acute community-acquired the right lower lobe pneumonia with parapneumonic effusion, status post thoracentesis followed by pigtail chest tube insertion by interventional radiology, cultures have been negative and cytology has been negative. 2. Right-sided chest wall pain secondary to pleural effusion 3. Abdominal aortic aneurysm, post endovascular stent grafting. 4. Acute hypoxic respiratory failure secondary to pneumonia and pleural effusion benign essential hypertension 5. Underlying COPD presently inactive Pulmonary recommending to continue pigtail catheter drainage. Possibility of removing the pigtail catheter in the next 24-48 hours. And the patient will be discharged home on antibiotics after removal of his pigtail catheter. Continue antibiotics although cultures have been negative and cytology has been negative. Anticipated discharge on Wednesday.
[2021-08-31 17:13] LABS: Glucose,Whole Blood 101 mg/dL (75-99)
[2021-08-31 21:07] LABS: Glucose,Whole Blood 108 mg/dL (75-99)
[2021-08-31] MEDS: ESCITALOPRAM 5 MG TAB PO SCH (21:40)
[2021-08-31] MEDS: lisinopriL 10 MG TAB PO SCH (21:40)
[2021-08-31] MEDS: SODIUM CHLORIDE 0.9% 1,000 ML IV SCH (21:41)
[2021-09-01] MEDS: methylPREDNISolone SOD SUCCI 125 MG/2 ML VIAL IV SCH ×2 (00:28→08:51)
--- NOTE | 2021-09-01 02:27 | P.PN ---
Subjective Progress Note Date: 08/31/21 Principal diagnosis: Right lower lobe pneumonia; community-acquired Right-sided parapneumonic effusion 71 yo M with PMH of HTN, COPD, tobacco abuse who presented to the ED complaining of chest pain as well as increasing shortness of breath over the past few days. He complains that he has been having R sided chest pain and tightness which has been sharp and constant in nature. He denies palpitations, sweats, fever, chills. He has been experiencing cough as well. On presentation pt tachycardic, tachypneic, WBC 14k, d-dimer 4.15, procalcitonin negative, trop negative. CTA performed and showing R sided consolidation and pleural effusion. 08/31/2021 Patient is seen and evaluated resting comfortably in bed; reports doing much better today, he is on room air, in no distress, hardly any drainage overnight from his pigtail catheter into the pleural VAC. Patient is now postoperative day #4 and recommended discharge home tomorrow after removing his pigtail catheter by interventional radiology. Objective - Vital Signs Vital signs: Vital Signs Temp 98.7 F 08/31/21 14:34 Pulse 86 08/31/21 16:38 Resp 18 08/31/21 14:34 BP 111/70 08/31/21 14:34 Pulse Ox 96 08/31/21 14:34 Intake & Output 08/30/21 08/31/21 08/31/21 18:59 06:59 18:59 Intake Total 518 418 Output Total 600 720 Balance -82 -720 418 Intake: Oral 518 418 Output: Urine 600 720 Other: Voiding Method Toilet Toilet Urinal Urinal # Voids 3 - Exam GENERAL: Well-developed very pleasant 71-year-old male patient, in no acute distress. currently on room air Head exam was generally normal. There was no scleral icterus or corneal arcus. Mucous membranes were moist. HEENT: Head is normocephalic. Pupils are equal, round. Sclerae anicteric. Mucous membranes of the mouth are moist. Neck supple. No JVD or thyromegaly LUNGS: Respirations even and unlabored. Lungs with faint crackles in the right base. Right-sided pigtail catheter in place HEART: Regular rate and rhythm. S1 and S2 heard. ABDOMEN: Soft. Nondistended. Nontender. EXTREMITIES: Normal range of motion. No clubbing or cyanosis. Peripheral pulses intact. No lower extremity edema - Labs CBC & Chem 7: 08/30/21 07:14 08/30/21 07:14 Labs: Abnormal Lab Results - Last 24 Hours (Table) 08/30/21 08/30/21 08/31/21 Range/Units 17:32 20:16 07:34 POC Glucose (mg/dL) 136 H 114 H 107 H (75-99) mg/dL 08/31/21 Range/Units 12:29 POC Glucose (mg/dL) 112 H (75-99) mg/dL Microbiology - Last 24 Hours (Table) 08/27/21 09:25 Anaerobic Culture - Final Pleural Fluid 08/27/21 09:50 Gram Stain - Final Pleural Fluid Body Fluid Culture - Final Assessment and Plan Assessment: 1. Acute community-acquired the right lower lobe pneumonia with parapneumonic e ffusion, status post thoracentesis followed by pigtail chest tube insertion by interventional radiology, cultures have been negative and cytology has been negative. 2. Right-sided chest wall pain secondary to pleural effusion 3. Abdominal aortic aneurysm, post endovascular stent grafting. 4. Acute hypoxic respiratory failure secondary to pneumonia and pleural effusion benign essential hypertension 5. Underlying COPD presently inactive Pulmonary recommending to continue pigtail catheter drainage. Possibility of removing the pigtail catheter in the next 24-48 hours. And the patient will be discharged home on antibiotics after removal of his pigtail catheter. Continue antibiotics although cultures have been negative and cytology has been negative. Anticipated discharge on Wednesday.
[2021-09-01 07:38] LABS: Glucose,Whole Blood 98 mg/dL (75-99)
[2021-09-01] MEDS: IPRATROPIUM-ALBUTEROL 3 ML NEB INHALATION SCH ×2 (08:03→11:54)
[2021-09-01] MEDS: INSULIN ASPART (NovoLOG) 100 UNIT/ML VIAL SQ SCH ×2 (08:34→12:41)
[2021-09-01 08:46] VITALS: TEMP 97.5
[2021-09-01] MEDS: PANTOPRAZOLE 40 MG/10 ML VIAL IVP SCH (08:51)
[2021-09-01] MEDS: VERAPAMIL SR 120 MG TABLET.ER PO SCH (08:51)
[2021-09-01] MEDS: NICOTINE 21MG/24HR PATCH TRANSDERM SCH (08:52)
[2021-09-01] MEDS ORDERED: predniSONE 20 MG TAB PO SCH (10:45)
--- NOTE | 2021-09-01 10:50 | P.DS ---
Providers Date of admission: 08/22/21 10:58 Expected date of discharge: 09/01/21 Attending physician: Cristian Lao MD Consults: 08/22/21 10:56 Consult Physician Routine Consulting Provider: Geovanna Blount Consult Reason/Comments: hypoxia, pl.effusions Do you want consulting provider notified?: Yes 08/26/21 08:18 Consult Physician Routine Consulting Provider: Genevieve Lomas Consult Reason/Comments: Loculated effusion, ? alteplase Do you want consulting provider notified?: Yes Primary care physician: Cristian Lao MD Hospital Course: Final Diagnoses: Sepsis secondary to community-acquired pneumonia Right parapneumonic effusion, loculated, status post right thoracentesis,650ml turbid. Status post right pigtail catheter placed as per IR. Thoracentesis cytology of 08/25 & 08/27 reported no malignancy. Chest pain, suspect related to the above, subsided New onset paroxysmal atrial fibrillation with RVR, converted to sinus rhythm Acute hypoxic respiratory failure secondary to all the above Gastroesophageal reflux disease COPD, stable Ongoing nicotine dependence, [id number] Hypertension History of AAA with stenting 2016 [facility] course:Evangelist Woodall is a 71 yo M with PMH of HTN, COPD, tobacco abuse who presented to the ED complaining of chest pain as well as increasing shortness of breath over the past few days. He complains that he has been having R sided chest pain and tightness which has been sharp and constant in nature. He denies palpitations, sweats, fever, chills. He has been experiencing cough as well. On presentation pt tachycardic, tachypneic, WBC 14k, d-dimer 4.15, procalcitonin negative, trop negative. CTA performed and showing R sided consolidation and pleural effusion. 08/25/2021 sitting up at side of bed, eating breakfast, reporting less shortness of breath. He underwent a right thoracentesis yesterday with 650 MLS/turbid appearance ,drained. Tolerated procedure well. Maintained on IV steroids, ceftriaxone and azithromycin. Denies cough. Reports no further right-sided chest pain. Chest x-ray reporting persistent confluent density at the right lung base, prominent lung volumes suggestive of underlying COPD, underlying emphysema, difficult to exclude associated effusion. Maintaining O2 sats in the 90s on 2 L nasal cannula. Afebrile, WBC trending down, 16.6. 08/26/2021 thoracentesis fluid, exudative, with suspected loculated empyema. Aleyda placed on hold for her upcoming pigtail catheter placement via interventional radiology as recommended per pulmonary. Cultures/cytology pending Sitting up at side of bed, feels well. Maintaining O2 sats in the 90s on room air. Denies any chest pain, palpitations or shortness of breath. Afebrile. 08/27/2021 . Maintain IV antibiotics, nebulized bronchodilators, IV steroids. Pigtail catheter placement with alteplase/dornase installation pending. Denies chest pain, palpitations or shortness of breath. Maintaining O2 sats in the 90s on room air. 08/28/21 pigtail catheter placed yesterday, 2 L of serosanguineous drainage, received first dose of alteplase/dornase yesterday and scheduled for another installation this morning. Tolerated procedure well. Chest x-ray reporting improvement in right lung base aeration. Maintaining O2 sats in the 90s on room air. IS up to 2000.Afebrile. PTH cytology of 08/25/2019 reported no malignancy. PTH cytology of 08/27 pending. Pleural fluid cultures pending. Ambulating in room, tolerating exertion well. 08/29/2021 third instillation of alteplase/dornase into pigtail catheter pending. 600ml pigtail drainage over the last 24 hours. Incentive spirometer up to 2000. Maintaining O2 sats in the 90s on room air .chest x-ray reporting no significant change with improvement right lung base aeration .Afebrile. Pleural fluid cultures pending. Pleural cytology of 08/27/2021 reporting no malignancy. Complains of pain at pigtail site. Denies chest pain, palpitations or shortness of breath. Pleural fluid cultures nondiagnostic with negative cytology. Recent chest x-ray reporting minimal right pleural space fluid, pigtail catheter removal-pending. Significant clinical improvement. Denies any chest pain, palpitations or shortness of breath. Denies any lightheadedness, dizziness or focal deficits. Lungs clear to auscultation. Maintaining O2 sats in the 90s. Afebrile. Patient will be discharged home today, in a stable condition with guarded prognosis pending removal of pigtail catheter, final DC recommendations and clearance per both pulmonary and CTS. The impression and plan of care has been dictated as directed. : I performed a history and examination of this patient, discussed the same with the dictator. I agree with the dictator's note ,documented as a scribe. Any additional findings or plans will be noted. Patient Condition at Discharge: Stable Plan - Discharge Summary Discharge Rx Participant: Yes New Discharge Prescriptions: New Levofloxacin [Levaquin] 500 mg PO DAILY 3 Days #3 tab Apixaban [Eliquis] 5 mg PO BID #60 tab Verapamil Sr [Isoptin Sr] 120 mg PO DAILY #90 tablet Nicotine 21Mg/24Hr Patch [Habitrol] 1 patch TRANSDERM DAILY patch Continue [place]-3 Fatty Acids/Fish Oil [Fish Oil 1,000 mg Softgel] 1 cap PO W/SUPPER Glucosamine/Chondr Buckner A Sod [Osteo Bi-Flex Caplet] 1 tab PO W/SUPPER lisinopriL 30 mg PO HS Escitalopram [Lexapro] 5 mg PO HS Vit C/E/Zn/Coppr/Lutein/Zeaxan [Preservision Areds 2 Softgel] 2 tab PO W/SUPPER Nystatin 100,000 Unit/gm Oint [Mycostatin Oint] 1 applic TOPICAL BID PRN PRN Reason: Rash Nystatin 100,000 Unit/gm Powd [Mycostatin Powder] 1 applic TOPICAL BID PRN PRN Reason: Rash Vitamin E 400 unit PO W/SUPPER Hydrocortisone Cream [Hydrocortisone 2.5% Cream] 1 applic TOPICAL BID PRN PRN Reason: RASH/DRY SKIN Multivit-Min/FA/Lycopen/Lutein [Centrum Silver Men Tablet] 1 tab PO W/SUPPER Cholecalciferol [Vitamin D3 (25 Mcg = 1000 Iu)] 50 mcg PO W/SUPPER Albuterol Inhaler [Ventolin Hfa Inhaler] 2 puff INHALATION RT-QID PRN PRN Reason: Shortness Of Breath Discharge Medication List Glucosamine/Chondr Buckner A Sod [Osteo Bi-Flex Caplet] 1 tab PO W/SUPPER 07/03/18 [History] [place]-3 Fatty Acids/Fish Oil [Fish Oil 1,000 mg Softgel] 1 cap PO W/SUPPER 07/03/18 [History] Escitalopram [Lexapro] 5 mg PO HS 08/11/19 [History] Vit C/E/Zn/Coppr/Lutein/Zeaxan [Preservision Areds 2 Softgel] 2 tab PO W/SUPPER 08/11/19 [History] lisinopriL 30 mg PO HS 08/11/19 [History] Albuterol Inhaler [Ventolin Hfa Inhaler] 2 puff INHALATION RT-QID PRN 08/21/21 [History] Cholecalciferol [Vitamin D3 (25 Mcg = 1000 Iu)] 50 mcg PO W/SUPPER 08/21/21 [History] Hydrocortisone Cream [Hydrocortisone 2.5% Cream] 1 applic TOPICAL BID PRN 08/21/21 [History] Multivit-Min/FA/Lycopen/Lutein [Centrum Silver Men Tablet] 1 tab PO W/SUPPER 08/21/21 [History] Nystatin 100,000 Unit/gm Oint [Mycostatin Oint] 1 applic TOPICAL BID PRN 08/21/21 [History] Nystatin 100,000 Unit/gm Powd [Mycostatin Powder] 1 applic TOPICAL BID PRN 08/21/21 [History] Vitamin E 400 unit PO W/SUPPER 08/21/21 [History] Apixaban [Eliquis] 5 mg PO BID #60 tab 08/25/21 [Rx] Verapamil Sr [Isoptin Sr] 120 mg PO DAILY #90 tablet 08/25/21 [Rx] Levofloxacin [Levaquin] 500 mg PO DAILY 3 Days #3 tab 09/01/21 [Rx] Nicotine 21Mg/24Hr Patch [Habitrol] 1 patch TRANSDERM DAILY patch 09/01/21 [Rx] Follow up Appointment(s)/Referral(s): Cristian Lao MD [Primary Care Provider] - 3 Days [facility], [NON-STAFF] - 1-2 Days Nubia Juarez MD [STAFF PHYSICIAN] - 1 Week
--- NOTE | 2021-09-01 14:53 | P.PN ---
Subjective Progress Note Date: 09/01/21 Principal diagnosis: Pleural effusion. The patient is seen today 08/28/2021 in follow-up on the regular medical floor. He is currently sitting up at the bedside. Awake and alert in no acute distress. He is breathing quite a bit better. He did have his pigtail catheter placed yesterday. He initially had 2000 and also serosanguineous fluid drained. He's had greater than 400 mL of fluid as well in the past 24 hours. Blood gases reveals glucose of 85. Protein 2.7. LDH 1457. Exudative in nature. Cytology pending. Chest x-ray showing significant improvement in aeration of the right lung base. Pleural fluid cultures are pending. Cytology pending. Sodium 142. Potassium 4.6. Creatinine 0.7. Cytology from initial thoracentesis on 08/24/2021 revealed no malignancy. He is continued on azithromycin. Continued on bronchodilators and IV Solu-Medrol. NicoDerm patch in place. The patient is seen today 08/29/2021 in follow-up on the regular medical floor. He is currently sitting up. Awake and alert in no acute distress. Breathing quite a bit easier today. Currently maintaining O2 saturations in the 90s on room air. Right-sided pigtail catheter remains in place. He had approximate 600 mL of serosanguineous fluid out in the past 24 hours. He did receive alteplase/dornase infusion yesterday. The plan is for another dose today. Pleural fluid from 08/27/2021 revealed no evidence of malignancy. His x-ray continues to show improved aeration of the right lung base. Pigtail catheter remains in place. He is continued on DuoNeb inhalations, IV Solu-Medrol. NicoDerm patch in place. Initial fluid cultures revealed no growth. Second blood cultures are pending. Reevaluated today on 08/30/2021, patient remains on the regular medical floor, continues to have a pigtail chest tube in place, patient is now postoperative day #3. Continues to have drainage, he had 70 mL drained in the last 24 hours, overall the patient continues to do well, and his chest x-ray today is reassuring, minimal amount of fluid is noted in the right pleural space, and an planning to consider removing his pigtail catheter on Wednesday, and discharge the patient home on antibiotics. Cultures from the fluid had been nondiagnostic. Cytology has been negative. Clinically the patient is doing great, relatively asymptomatic. Reevaluated today on 08/31/2021, patient is doing much better today, he is on room air, in no distress, hardly any drainage overnight from his pigtail catheter into the pleural VAC. Patient is now postoperative day #4, and I plan to discharge the patient home tomorrow after removing his pigtail catheter by interventional radiology. Progress note dated 09/01/2021. The pigtail catheter was removed by interventional radiology today. The patient has a bandage over that area. He is currently on room air. No IV fluids. So far fluid cytology and microbiology are negative. The patient's hoping to be discharged soon. The patient's discharge antibiotic will be Levaquin. That was decided by the primary service and our group. The patient has also been seen by thoracic surgery. Clinically he looks well. He is not receiving any supplem ental oxygen. Currently, not on any IV fluids he denies any shortness of breath, pain, or discomfort. No new laboratory data. Objective - Vital Signs Vital signs: Vital Signs Temp 97.5 F L 09/01/21 07:00 Pulse 82 09/01/21 08:00 Resp 16 09/01/21 08:00 BP 168/89 09/01/21 07:00 Pulse Ox 94 L 09/01/21 07:00 Intake & Output 08/31/21 09/01/21 09/01/21 18:59 06:59 18:59 Intake Total 536 Output Total 800 150 Balance -264 -150 Intake: Oral 536 Output: Urine 800 150 Other: Voiding Method Toilet Toilet Urinal Urinal # Voids 3 - Exam No acute distress, oriented 3. Not on any supplemental oxygen. HEENT examination is grossly unremarkable. Neck supple. Full range of motion. No adenopathy thyromegaly or neck vein distention. Cardiovascular examination reveals regular rhythm rate. S1-S2 normal. No S3 or S4. No discernible murmur noted. Heart rate 82 bpm. Lungs reveal mostly clear breath sounds. Mild scattered rhonchi particularly at the right base. No wheezes or crackles. Breath sounds mostly equal bilaterally. Abdomen soft bowel sounds are heard. No masses or tenderness. Extremities are intact. No cyanosis clubbing or edema. Skin is without rash or lesion. Neurologic examination is brief but nonfocal. - Labs CBC & Chem 7: 08/30/21 07:14 08/30/21 07:14 Labs: Abnormal Lab Results - Last 24 Hours (Table) 08/31/21 08/31/21 Range/Units 17:11 21:05 POC Glucose (mg/dL) 101 H 108 H (75-99) mg/dL Microbiology - Last 24 Hours (Table) 08/27/21 09:25 Anaerobic Culture - Final Pleural Fluid Assessment and Plan Assessment: Acute community-acquired right lower lobe pneumonia with parapneumonic effusion, status post thoracentesis followed by pigtail catheter placement and subsequent removal, on 09/01/2021. Right-sided chest wall pain, secondary to parapneumonic effusion. Abdominal aortic aneurysm, status post endovascular stenting. Acute hypoxemic respiratory failure secondary to pneumonia. Benign essential hypertension. COPD. History of [id number] tobacco use. Plan: Plan dated 09/01/2021. The pigtail catheter was removed today by interventional radiology. The patient's currently on Levaquin. I believe the discharge antibiotic will be Levaquin as well. The patient may be considered for possible discharge later today. No additional recommendations have been made. No decision has been made about discharge. We will continue to follow make recommendations where appropriate. The patient will follow-up in our office. Time with Patient: Less than 30
[2021-09-01 14:54] VITALS: PULSE 81; RESP 17
[2021-09-01 14:55] VITALS: BP 145/89
== END 2021-09-01 16:19 | disposition home or self-care (01) | DRG 871 ==
LOC: EC 18:09 → 6NMEDSUR 22:06 → OBSVTOIN 08-22 10:58
PROVIDERS: ADMIT Family Medicine; ATTEND Family Medicine
PROC: 0W993ZX Drainage of Right Pleural Cavity, Percutaneous Approach, Diagnostic (ICD-10-PCS; principal; 2021-08-24)
PROC: 0W9930Z Drainage of Right Pleural Cavity with Drainage Device, Percutaneous Approach (ICD-10-PCS; 2021-08-27)
PROC: 3E0L3GC Introduction of Other Therapeutic Substance into Pleural Cavity, Percutaneous Approach (ICD-10-PCS; 2021-08-27)
DX: A41.9 Sepsis, unspecified organism (principal); J15.9 Unspecified bacterial pneumonia; J86.9 Pyothorax without fistula; J96.01 Acute respiratory failure with hypoxia; J44.0 Chronic obstructive pulmonary disease with (acute) lower respiratory infection; J44.1 Chronic obstructive pulmonary disease with (acute) exacerbation; J91.8 Pleural effusion in other conditions classified elsewhere; E87.2 Acidosis; E27.9 Disorder of adrenal gland, unspecified; N20.0 Calculus of kidney; F17.210 Nicotine dependence, cigarettes, uncomplicated; F41.9 Anxiety disorder, unspecified; H91.91 Unspecified hearing loss, right ear; I10 Essential (primary) hypertension; I25.10 Atherosclerotic heart disease of native coronary artery without angina pectoris; J45.909 Unspecified asthma, uncomplicated; I08.3 Combined rheumatic disorders of mitral, aortic and tricuspid valves; Z95.828 Presence of other vascular implants and grafts; I48.0 Paroxysmal atrial fibrillation; I49.3 Ventricular premature depolarization; K21.9 Gastro-esophageal reflux disease without esophagitis; M41.9 Scoliosis, unspecified; Z20.822 Contact with and (suspected) exposure to COVID-19; Z79.01 Long term (current) use of anticoagulants; Z79.899 Other long term (current) drug therapy; Z86.79 Personal history of other diseases of the circulatory system; Z87.11 Personal history of peptic ulcer disease; Z98.890 Other specified postprocedural states; Z96.611 Presence of right artificial shoulder joint; Z88.0 Allergy status to penicillin; Z90.49 Acquired absence of other specified parts of digestive tract
CPT/HCPCS: 32551; 36415; 71045; 71046; 71250; 71275; 77012; 80048; 80053; 82945; 83605; 83615; 83735; 83880; 84145; 84157; 84484; 85025; 85379; 85610; 85730; 87040; 87070; 87075; 87102; 87205; 87252; 87496; 87498; 87502; 87529; 87634; 87635; 87798; 88108; 88305; 89050; 93005; 93306; 94640; 94760; 96374; 99285

== ENCOUNTER → 2021-12-18 | Outpatient (CLI) | payer MEDICARE ==
--- NOTE | 2021-12-18 22:27 | CT ---
EXAMINATION TYPE: CT abdomen pelvis wo con CT DLP: 271.7 mGycm, Automated exposure control for dose reduction was used. DATE OF EXAM: 12/18/2021 6:42 PM COMPARISON: CTs dating back to 2011. CLINICAL INDICATION:Male, 71 years old with history of E27.8 ADRENAL MASS; h/o adrenal mass TECHNIQUE: Standard CT of the abdomen and pelvis following the administration of oral contrast. Cor onal and sagittal reformats were performed. FINDINGS: LOWER CHEST: Right middle lobe scarring from prior infection seen on 08/21/2021. ABDOMEN LIVER: Unremarkable GALLBLADDER AND BILE DUCTS: The gallbladder is surgically absent. PANCREAS: Unremarkable. SPLEEN: Unremarkable. ADRENAL GLANDS: There is hypertrophy changes of the adrenal glands bilaterally. Measuring 29 mm on th e left and -2 Hounsfield units and on the right measuring 17.3 mm and 2 Hounsfield units on the right . These are not definitely changed dating back to 2011. KIDNEYS AND URETERS: No evidence of hydronephrosis or obstructive renal calculus. There is a nonobst ructive left 9 mm and right 4 mm renal calculi. PELVIS BLADDER: Dilated urinary bladder with ureteroceles and/or posterior lateral bladder diverticula. REPRODUCTIVE: Unremarkable. ABDOMEN & PELVIS STOMACH AND BOWEL: There is a large stool burden throughout the colon with fecaloma measuring up to 7 .2 cm in transverse dimension in the rectum.. No evidence of bowel obstruction. PERITONEUM: No evidence of pneumoperitoneum or free fluid. VASCULATURE: Aortobiiliac stent graft is present. Evaluation for patency is limited given lack of IV contrast. Atherosclerosis of the arterial vasculature. MUSCULOSKELETAL: No acute osseous abnormalities. Multilevel disc degeneration changes throughout the spine most pronounced in the lower lumbar spine at L3-L4 and L4-L5 with endplate sclerosis, pectus ph enomenon., And osteophyte formation. There is multilevel disc degeneration changes with facet joint a rthropathy. There is dextroscoliosis apex at L4. LYMPH NODES: No gross evidence for lymphadenopathy. SOFT TISSUE/ABDOMINAL WALL: Unremarkable IMPRESSION: 1. Bilateral adrenal nodules seen dating back to 2011 which are not significantly changed in size. Th natali are most consistent with benign lipid rich adrenal adenomas. 2. Nonobstructing bilateral renal calculi. 3. Bilateral posterolateral ureteroceles or bladder diverticula. These are seen although smaller dati ng back to 2011. 4. Large stool burden with fecaloma in the rectum.
== END | disposition home or self-care (01) ==
LOC: RADCTMAIN 16:42
PROVIDERS: ATTEND Family Medicine
DX: N20.0 Calculus of kidney (principal); N32.3 Diverticulum of bladder; E27.8 Other specified disorders of adrenal gland; R19.5 Other fecal abnormalities
CPT/HCPCS: 74176

== ENCOUNTER 2022-01-08 10:43 | Day surgery (SDC) | payer MEDICARE ==
[2022-01-07 09:33] VITALS: BMI 20.7
[~2022-01-08 10:43] MED LIST changes: -LIDOCAINE 1% 20 ML VIAL (10MG/ML) FOR IV START INTRADERMA PRN
[2022-01-08 11:37] VITALS: TEMP 97.4
[2022-01-08] MEDS ORDERED: PROPOFOL 10 MG/ML 20 ML VIAL IV ONE (12:20)
--- NOTE | 2022-01-08 12:23 | P.GSHP ---
History of Present Illness H&P Date: 01/08/22 Chief Complaint: Screening colonoscopy Cyst 70-year-old male who presents today for screening colonoscopy. Patient denies a significant GI complaints. Past Medical History Past Medical History: Asthma, COPD, GERD/Reflux, Hypertension Additional Past Medical History / Comment(s): hx of gastric ulcers, abdominal aortic Aneurysm with stent (2015), scoliosis, blood clot right retina., umbilical hernia. History of Any Multi-Drug Resistant Organisms: None Reported Past Surgical History: Cholecystectomy, Hernia Repair, Joint Replacement Additional Past Surgical History / Comment(s): right total shoulder, left shoulder surgery., umbilical hernia., colonoscopies, the patient reports that he has a history of stent placement to a abdominal aortic aneurysm in 2013. Past Anesthesia/Blood Transfusion Reactions: No Reported Reaction Smoking Status: Current every day smoker - Past Family History Mother Family Medical History: No Reported History Medications and Allergies Home Medications Medication Instructions Recorded Confirmed Type Glucosamine/Chondr Buckner A Sod [Osteo 1 tab PO W/SUPPER 07/03/18 01/08/22 History Bi-Flex Caplet] Naselle-3 Fatty Acids/Fish Oil [Fish 1 cap PO W/SUPPER 07/03/18 01/08/22 History Oil 1,000 mg Softgel] Escitalopram [Lexapro] 10 mg PO W/SUPPER 08/11/19 01/08/22 History Vit C/E/Zn/Coppr/Lutein/Zeaxan 2 tab PO W/SUPPER 08/11/19 01/08/22 History [Preservision Areds 2 Softgel] lisinopriL 30 mg PO W/SUPPER 08/11/19 01/08/22 History Albuterol Inhaler [Ventolin Hfa 2 puff INHALATION RT-QID PRN 08/21/21 01/08/22 History Inhaler] Cholecalciferol [Vitamin D3 (25 50 mcg PO W/SUPPER 08/21/21 01/08/22 History Mcg = 1000 Iu)] Multivit-Min/FA/Lycopen/Lutein 1 tab PO W/SUPPER 08/21/21 01/08/22 History [Centrum Silver Men Tablet] Allergies Allergy/AdvReac Type Severity Reaction Status Date / Time Penicillins AdvReac Rapid Verified 01/08/22 11:25 Heart Rate Surgical - Exam Vital Signs Temp Pulse Resp BP Pulse Ox 97.4 F L 81 18 144/85 98 01/08/22 11:36 01/08/22 11:36 01/08/22 11:36 01/08/22 11:36 01/08/22 11:36 - General well developed, well nourished, no distress - Eyes PERRL - ENT normal pinna - Neck no masses - Respiratory normal expansion - Cardiovascular Rhythm: regular - Abdomen Abdomen: soft, non tender Assessment and Plan Assessment: We'll perform screening colonoscopy.
--- NOTE | 2022-01-08 12:38 | P.OP ---
Date of Procedure: 01/08/22 Preoperative Diagnosis: Screening colonoscopy Postoperative Diagnosis: Diverticulosis Procedure(s) Performed: Colonoscopy Anesthesia: MAC Surgeon: Jimmy Lee Pathology: none sent Condition: stable Disposition: PACU Description of Procedure: The patient's placed on the endoscopy table in the lateral position. He received IV sedation. Digital rectal exam was performed. This revealed no ebonized. The flexible colonoscope was then placed patient anus and passed throughout the entire colon. The ileocecal valve was visualized. The cecum, ascending and transverse colon appeared normal. In the descending and; was moderate diverticulosis. There is no evidence of diverticulitis. The scope was then brought back into the rectum and this appeared normal. Scope withdrawn for patient.
[2022-01-08 12:55] VITALS: BP 114/76; PULSE 68; RESP 16
== END 2022-01-08 13:28 | disposition home or self-care (01) ==
LOC: ORWHC2ENDO 10:43
PROVIDERS: ATTEND Surgery
DX: Z12.11 Encounter for screening for malignant neoplasm of colon (principal); K57.90 Diverticulosis of intestine, part unspecified, without perforation or abscess without bleeding; F17.200 Nicotine dependence, unspecified, uncomplicated; I10 Essential (primary) hypertension; J44.9 Chronic obstructive pulmonary disease, unspecified; K21.9 Gastro-esophageal reflux disease without esophagitis; Z87.11 Personal history of peptic ulcer disease; Z88.0 Allergy status to penicillin; Z90.49 Acquired absence of other specified parts of digestive tract
CPT/HCPCS: 45378; J2704

== ENCOUNTER → 2022-12-10 | Outpatient (CLI) | payer MEDICARE ==
--- NOTE | 2022-12-10 10:22 | MR ---
EXAMINATION TYPE: MR hip LT wo con DATE OF EXAM: 12/10/2022 COMPARISON: Outside left hip x-ray November 11, 2022. CT abdomen and pelvis October 18, 2021 HISTORY: Lt hip pain, clicking Standard multiplanar, multisequence MRI departmental protocol Multiplanar, multisequence images of the pelvis were acquired without contrast. FINDINGS: Mild to moderate axial joint space loss in both hips is present. There are small bilateral hip joint effusions slightly larger on the left. Mild bilateral acetabular spurring. No significant s ubchondral cystic changes are present. Focus of increased T2 signal or edema involving the greater tr ochanter with adjacent edema consistent with insertional tendinosis and associated bursitis in the le ft hip is seen. Remainder of the left hip shows no suspicious increased T2 signal or edema. No serpig inous diminished T1 signal or avascular necrosis in the left hip. Left femoral head shape is maintain ed. No suspicious groin hernia or adenopathy is seen. Muscle bulk is symmetric and maintained in the bilateral hips. Enlarged prostate gland is seen. There is mildly distended bladder with multiple areas of latter dive rticula seen along the posterior aspect of the bilateral bladder wall. Diverticula in the sigmoid col on of the left pelvis are seen. Patient has very little intra-abdominal fat. Scoliotic curvature with multilevel spurring and disc space narrowing in the visualized lower lumbar spine is seen. IMPRESSION: Mild to moderate degenerative changes in the left hip as detailed above. Left hip shows a symmetric insertional tendinosis at level of the greater trochanter with adjacent trochanteric bursit is that is significantly more prominent versus the opposite right hip.
== END | disposition home or self-care (01) ==
LOC: RADMRIMAIN 08:30
PROVIDERS: ATTEND Orthopaedic Surgery
DX: M16.12 Unilateral primary osteoarthritis, left hip (principal); M25.452 Effusion, left hip; M25.451 Effusion, right hip; M41.86 Other forms of scoliosis, lumbar region

== ENCOUNTER 2023-05-27 07:01 | Day surgery (SDC) | payer MEDICARE ==
[~2023-05-27 07:01] MED LIST changes: +LIDOCAINE 1% (10MG/ML) FOR IV START INTRADERMA PRN
[2023-05-27 07:39] VITALS: TEMP 97.9
[2023-05-27] MEDS ORDERED: PROPOFOL 10 MG/ML 20 ML VIAL IV ONE (07:55)
--- NOTE | 2023-05-27 08:10 | P.OP ---
Date of Procedure: 05/27/23 Preoperative Diagnosis: GI bleed Postoperative Diagnosis: Severe diverticulosis of sigmoid: Rectal polyp Procedure(s) Performed: Colonoscopy Anesthesia: MAC Surgeon: Jimmy Lee Pathology: other (Rectal polyp) Condition: stable Disposition: PACU Description of Procedure: The patient's placed on the endoscopy table in the lateral position. He received IV sedation. Digital rectal exam was performed which revealed a few internal hemorrhoids. Flexible colonoscope was then placed patient anus passed throughout the colon. The sigmoid colon had severe diverticulosis. The scope cannot be passed beyond this. The scope was then withdrawn. There were extensive diverticular changes. Scope was brought back the rectum a small polyp seen. His removed with the cold forcep. Scope was withdrawn for patient.
[2023-05-27 08:57] VITALS: BP 127/78; PULSE 77; RESP 17
== END 2023-05-27 08:50 | disposition home or self-care (01) ==
LOC: ORWHC2ENDO 07:01
PROVIDERS: ATTEND Surgery
DX: K62.1 Rectal polyp (principal); K57.31 Diverticulosis of large intestine without perforation or abscess with bleeding; K64.8 Other hemorrhoids; E11.9 Type 2 diabetes mellitus without complications; Z88.0 Allergy status to penicillin; Z79.84 Long term (current) use of oral hypoglycemic drugs; Z79.899 Other long term (current) drug therapy
CPT/HCPCS: 88305; 45380; J2704